=== PATIENT | male | born 1960 | race Caucasian/White ===

== ENCOUNTER 2025-06-01 09:12 | Inpatient (IN) | payer MEDICARE, BC, SELFPAY ==
[2025-06-01] VITALS (15 sets, daily range): BP systolic 104–137; BP diastolic 67–82; PULSE 84–107; RESP 12–38; TEMP 37.1–37.8; O2SAT 63–97
[2025-06-01] MEDS: RINGERS LACTATED 1000 ML 1,000 ML 999 ML IV (09:15)
--- NOTE | 2025-06-01 09:15 | PC.NURSE ---
Pt. pupils pinpoint bilateral.
--- NOTE | 2025-06-01 09:23 | EKG_ITS ---
[facility] Test Date: 2025-06-01 Pat Name: SHERRI VALENZUELA Department: Room: - Gender: Male Measurement Supervisor: : 1960 Requested By: Yenny Champagne Order Number: [id number] Reading MD: Yenny Champagne Measurements Intervals [place] Rate: 105 P: 59 MT: 128 QRS: 8 QRSD: 122 T: -2 QT: 334 QTc: 443 Interpretive Statements SINUS TACHYCARDIA POSSIBLE RIGHT VENTRICULAR CONDUCTION DELAY [RSR (QR) IN V1/V2] NONSPECIFIC ST & T-WAVE ABNORMALITY ABNORMAL RHYTHM ECG Compared to ECG 03/15/2019 16:49:11 Sinus rhythm no longer present Possible ischemia no longer present T-wave abnormality still present /store/S0/[id number]/ecg/[id number].pdf
--- NOTE | 2025-06-01 09:28 | XR_ITS ---
Examination: AP chest single view. Technique: AP portable semiupright chest single view Date and time: June 01, 2025, 1005 hrs., Comparison March 15, 2019. Indications: Altered mental status today. Findings: Moderate enlargement cardiac contour. No aspiration pneumonia. Moderate elevation right hemidiaphragm. Prominent osteopenia. Impression: Negative for aspiration pneumonia.
--- NOTE | 2025-06-01 09:32 | XR_ITS ---
Examination: CT brain head without contrast. 2-D sagittal coronal reconstructions Date and time of exam:June 01, 2025, 1001 hrs. Indications: Altered mental status beginning this morning. CTDI: vol (mGy):58.7. DLP: (mGycm):1285. Technique: Multiple CT axial sections of the brain have been obtained, 5 mm slice thickness. Contrast has not been administered. 2-D sagittal, coronal reconstructions have been obtained Low dose protocols were performed. One or more of the following dose reduction techniques were used; automated exposure control, adjustment of the mA and/or KV according to patient size, use of iterative reconstruction technique. Findings: No significant ventricular enlargement. Intra-axial or extra-axial hemorrhage density is not seen. No mass effect or midline shift Basal cisterns are not remarkable. Fourth ventricle is midline. Cranial vault intact. Impression: Negative for acute hemorrhage, mass effect or midline shift
--- NOTE | 2025-06-01 09:55 | PC.NURSE ---
Pt. is bedside.
--- NOTE | 2025-06-01 10:00 | PC.NURSE ---
Pt. Morphine pump is implanted to the right lower abdomen, states that they can't turn on or off the Morphine pump. states that it drips to pt.'s back. states that pt. has a bolus pump at home and can give himself a bolus if needed. states that she does not know the dose of the Morphine, states it is controlled by pt.'s pain Doctor.
--- NOTE | 2025-06-01 10:02 | EDNOTE_ITS ---
<Statement entered by Yenny Camarillo MD - 06/01/25 15:14> I, Yenny Camarillo MD, have reviewed the history, exam, and assessment of the patient. I have evaluated the patient independently and agree with the plan of care documented by [ ]. All diagnostic studies were reviewed and discussed. I confirm the diagnosis as documented by the Resident. I was present during the Medical Decision Making for this patient. The patient's plan of care was created between myself and the Resident and consistent with our discussion of the patient's case. Altered Mental Status RME/HPI General Chief Complaint: Altered Mental Status Stated Complaint: ALTERED Time Seen by Provider: 06/01/25 09:56 Source: EMS Arrival date/time: 06/01/25 09:12 Mode of arrival: EMS RME / HPI RME / HPI narrative: Mr. Lizarraga is a 65-year-old male with a history of chronic pain with subcutaneous infusion pump, depression/anxiety, GERD, migraines, on testosterone replacement therapy and hyperlipidemia who presented to [facility] emergency department on June 01, 2025 with a chief complaint of altered mental status. Patient on presentation is altered most of the history obtained from EMS, per EMS patient's reported that he was working on his car in the yard yesterday and he told her that he overdid it, was resting in his bed ate dinner went to sleep and she was unable to wake him in the morning. EMS reported that his GCS was 10 on their evaluation and he was responsive to sternal rub. Patient in ER requiring around 3 L nasal cannula to maintain SpO2 greater than 92, is alert and oriented x 1 engaging in conversation responds to questions is confused. Related Data Home Medications ?Medication ?Instructions ?Recorded ?Confirmed quetiapine 100 mg tablet (Seroquel) 100 mg PO HS 03/1504/19/19 Allergies Allergy/AdvReac Type Severity Reaction Status Date / Time iodine Allergy Severe Hives Verified 04/19/19 08:07 lactose Allergy Severe Diarrhea Verified 04/19/19 08:07 latex Allergy Severe Hives Verified 04/19/19 08:07 Review of Systems Review of Systems ROS Unobtainable: unobtainable due to mental status Past Medical History Past Medical History MUSCULOSKELETAL: Positive Musculoskeletal Disorders and Degenerative Disk Disease (LUMBAR) PSYCHO/SOCIAL: Positive Bipolar Disorder, Depression and Anxiety Surgical History SURGICAL: Positive of Shoulder Sx (LEFT ROTATOR CUFF) and of Back Surgery (CAGE AT LUMBAR SPINE) OTHER SURGICAL HX: STERNUM REPAIR AT 9 YEARS OLD IMPLANTED PAIN PUMP RT LOWER ABD (MORPHINE) Social History SMOKING STATUS: Never smoker Travel History EBOLA RISK: No ED Exam Narrative Physical exam: Physical Exam General: Awake, conversational and confused, diaphoretic HEENT: Normocephalic, atraumatic, mucous membranes dry. Pinpoint pupils Heart: Regular rate and rhythm, no murmur, hypotensive. Sternal repair scar noted. Lungs: Clear to auscultation with no wheezing or crackles. Abdomen: Soft, nondistended, nontender, positive bowel sounds. ?No guarding or rebound tenderness. Subcutaneous infusion pump noted Neurologic: Alert and oriented x1, no gross neurological deficit, and patient able to move all 4 extremities. Extremities: No edema. Skin: Cool to touch. No rash or ecchymoses. Course Course Course Narrative: Initially suspicion of opiate overdose, saturating well on 3 L nasal cannula, SpO2 greater than 92, no Narcan given. Given 1 L LR bolus due to soft blood pressure EKG shows sinus tachycardia some Q waves noted, no ST-T changes Ordered sepsis/AMS workup ABG: pH 7.23, pCO2 61, pO2 57 Carboxyhemoglobin 3.1% CBC: WBC 26,000, hemoglobin and platelet count stable, elevated neutrophils 22.6 noted CMP: Potassium 6.7, creatinine 3.7, GFR 17, lactate 4.2, AST 60 ALT 36, total CK 272, Pro-Dario 0.38 Troponin 1.973, BNP 219 Urinalysis shows protein 1+, ketones 1+, no bacteria leukocyte esterase negative Urine tox screen positive for opiates and methamphetamine Chest x-ray negative for aspiration pneumonia CT scan of head negative for any acute hemorrhage or midline shift Patient given additional 1 L NS bolus, started on BiPAP as pCO2 was high, given hyperkalemia treatment Was given Kayexalate 30 p.o. x 1, albuterol 10 mg inhalational treatment, 10 units of insulin along with 100 of D50 Consulted nephrology Dr. Scott recommended IV maintenance fluids and Bertrand catheter insertion Consulted cork mixer Dr. Carter for elevated troponin, recommended trending troponin Patient given loading dose aspirin, heparin drip deferred for now consulted cardiology Discussed with hospitalist team patient will be admitted to telemetry for further workup Quality Measures none Orders Category Date Time Status Admit to Inpatient Status Routine Admission 06/01/25 12:12 Active Patient Condition Routine Admission 06/01/25 12:12 Ordered Aspiration precautions ONCE Care 06/01/25 09:34 Active Bedside Blood Glucose NOW Care 06/01/25 09:28 Active Bedside Blood Glucose Q2HX3 Care 06/01/25 10:57 Active COVID-19 Screening Questionnaire NOW Care 06/01/25 11:40 Active Stopperer Assembler NOW Care 06/01/25 09:28 Active Continuous Pulse Oximetry NOW Care 06/01/25 09:28 Completed Decision to Admit X1 Care 06/01/25 11:39 Active EKG (ED ONLY) *Do not use* NOW Care 06/01/25 09:23 Completed Flu & Pneumonia Vaccine Screen ONCE Care 06/01/25 12:12 Active Bertrand [Urinary Catheter] QS Care 06/01/25 11:07 Active Head of Bed Elevation NOW Care 06/01/25 09:34 Active In and Out Catheter X1 Care 06/01/25 10:51 Completed Insert IV NOW Care 06/01/25 09:28 Active NPO NOW Care 06/01/25 09:28 Active Neuro Check Q1HR Care 06/01/25 09:28 Completed Notify provider NEEDED Care 06/01/25 12:12 Active Nurse Swallow Screen x1 Care 06/01/25 09:28 Active Strict Intake and Output Routine Care 06/01/25 09:30 Ordered Consult to Cardiology Stat Cons 06/01/25 11:03 Ordered Consult to Nephrology Stat Cons 06/01/25 11:02 Ordered CA echo doppler complete Routine Exams 06/01/25 12:[address] head/brain wo con Stat Exams 06/01/25 09:32 Completed EKG (ED Only) Stat Exams 06/01/25 09:23 Draft US renal BI Stat Exams 06/01/25 12:21 Ordered XR abdomen 1V Stat Exams 06/01/25 12:11 Ordered XR chest 1V portable Stat Exams 06/01/25 09:28 Completed A1C [Glycohemoglobin w (eAG)] AM DRAW Lab 06/02/25 05:00 Ordered ABG [Arterial Blood Gas] Stat Lab 06/01/25 12:08 Ordered Alcohol, Blood Medical Stat Lab 06/01/25 09:46 Completed Ammonia Stat Lab 06/01/25 09:46 Completed Arterial Blood Gas Stat Lab 06/01/25 10:08 Completed B-Type Natriuretic Peptide Stat Lab 06/01/25 09:46 Completed Blood Culture (Lab) Stat Lab 06/01/25 11:00 Received CBC AM DRAW Lab 06/02/25 05:00 Ordered CBC AM DRAW Lab 06/03/25 05:00 Ordered CBC AM DRAW Lab 06/04/25 05:00 Ordered CBC Stat Lab 06/01/25 11:05 Completed CK [Creatine Kinase] AM DRAW Lab 06/02/25 05:00 Ordered Carboxyhemoglobin Stat Lab 06/01/25 09:46 Completed Comprehensive Metabolic Panel AM DRAW Lab 06/02/25 05:00 Ordered Comprehensive Metabolic Panel AM DRAW Lab 06/03/25 05:00 Ordered Comprehensive Metabolic Panel AM DRAW Lab 06/04/25 05:00 Ordered Comprehensive Metabolic Panel Stat Lab 06/01/25 09:46 Completed Creatine Kinase Stat Lab 06/01/25 09:46 Completed Creatinine,Random Urine Stat Lab 06/01/25 12:22 Ordered Drug Screen,Urine Stat Lab 06/01/25 10:55 Completed Electrolytes, Urine Random Stat Lab 06/01/25 12:22 Ordered Lactate (Lactic Acid) Stat Lab 06/01/25 09:46 Results Lipid Panel AM DRAW Lab 06/02/25 05:00 Ordered Magnesium AM DRAW Lab 06/02/25 05:00 Ordered Magnesium Stat Lab 06/01/25 09:46 Completed Partial Thromboplastin Time Stat Lab 06/01/25 09:46 Completed Phosphorous AM DRAW Lab 06/02/25 05:00 Ordered Procalcitonin Stat Lab 06/01/25 09:46 Completed Protein Total, Random Urine Stat Lab 06/01/25 12:22 Ordered Prothrombin Time with INR Stat Lab 06/01/25 09:46 Completed Renal Function Panel Routine Lab 06/01/25 14:00 Ordered Thyroid Stimulating Hormone AM DRAW Lab 06/02/25 05:00 Ordered Troponin I Q6H Lab 06/01/25 14:00 Ordered Troponin I Q6H Lab 06/01/25 20:00 Ordered Troponin I Q6H Lab 06/02/25 02:00 Ordered Troponin I Stat Lab 06/01/25 09:46 Completed Urinalysis, C/S if Indicated Stat Lab 06/01/25 10:55 Completed Urine Culture Stat Lab 06/01/25 09:30 Ordered VBG [Venous Blood Gas] Stat Lab 06/01/25 09:46 Completed ALBUTEROL RT 0.5ml [Proventil Rt 0.5ml] Med 06/01/25 10:59 Discontinued 10 mg INH X1 ONE Acetaminophen Tab [Tylenol Tab] Med 06/01/25 12:12 Active 650 mg PO Q6H PRN Albuterol/Ipratr Rt Caridad [Duoneb Rt Caridad] Med 06/01/25 12:12 Active 3 ml INH Q6HR PRN Aspirin Med 06/01/25 11:03 Discontinued 325 mg PO X1 ONE Azithromycin Inj [Zithromax Inj] 500 mg Med 06/02/25 09:00 Pending Sodium Chloride 0.9% 250 ml [Ns] 250 ml IV QDAY Azithromycin Inj [Zithromax Inj] 500 mg Med 06/01/25 12:30 Active Sodium Chloride 0.9% 250 ml [Ns] 250 ml IV X1 Calcium Chloride 10% Abboject Med 06/01/25 11:33 Discontinued 10 ml IV X1 ONE Calcium Gluconate 10% Inj Med 06/01/25 11:09 Discontinued 1 gm IV X1 ONE Cefepime Inj [Maxipime Inj] 2 gm Med 06/01/25 11:30 Discontinued SODIUM CHLORIDE 0.9% (Popper) [Ns 0.9% (P)] 50 ml IV X1 Dextrose 50% Syr [D50w Syringe Abboject] Med 06/01/25 10:57 Discontinued 100 ml IV X1 ONE Dextrose 50% Syr [D50w Syringe Abboject] Med 06/01/25 10:57 Active 25 ml IV Q15MIN PRN Dextrose 50% Syr [D50w Syringe Abboject] Med 06/01/25 10:57 Active 50 ml IV Q15MIN PRN Doxycycline Inj [Vibramycin Inj] 100 mg Med 06/01/25 11:30 Discontinued Sodium Chloride 0.9% (Pop) [NS 0.9% mini bag] 100 ml IV X1 Glucagon Inj Med 06/01/25 10:57 Active 1 mg IM Q15MIN PRN Heparin Inj Med 06/01/25 21:00 Active 5,000 unit SC Q12HR Insulin Regular Med 06/01/25 10:57 Discontinued 10 unit IV X1 ONE Ondansetron Inj [Zofran Inj] Med 06/01/25 09:28 Active 4 mg IVP Q4HR PRN Pantoprazole Inj [Protonix Inj] Med 06/02/25 09:00 Active 40 mg IVP QDAY Ringers Lactated 1000 ml [Lactated Ringers] 1,000 ml Med 06/01/25 10:00 Discontinued IV 999 mls/hr Senna [Senokot] Med 06/02/25 09:00 Active 1 tab PO QDAY Sod Polystyrene Sulfon Susp [Kayexalate Susp] Med 06/01/25 10:57 Discontinued 30 gm PO X1 ONE Sodium Chloride 0.9% 1000 ml [Ns] 1,000 ml Med 06/01/25 12:20 Active IV 100 mls/hr Sodium Chloride 0.9% 1000 ml [Ns] 1,000 ml Med 06/01/25 11:27 Discontinued IV 75 mls/hr Sodium Chloride 0.9% 1000 ml [Ns] 1,000 ml Med 06/01/25 10:38 Discontinued IV 999 mls/hr cefTRIAXone/D5w 1gm IV premix [Rocephin/D5w 1gm IV Med 06/01/25 12:17 Active premix] 1 gm in 50 ml IV QDAY Code Status Routine Oth 06/01/25 12:12 Ordered BiPAP / CPAP HS RT 06/01/25 12:10 Active BiPAP / CPAP NOW RT 06/01/25 10:37 Active Oxygen Delivery PRN RT 06/01/25 09:28 Active Vital Signs Vital signs: Vital Signs Temperature 98.8 F 06/01/25 09:15 Pulse Rate 107 H 06/01/25 09:15 Respiratory Rate 17 06/01/25 09:15 Blood Pressure 104/67 06/01/25 09:15 Pulse Oximetry (%) 88 L 06/01/25 09:15 Oxygen Delivery Method Room Air 06/01/25 09:15 Altered Mental Status MDM Narrative MDM Narrative:: 65-year-old male presented to ED with altered mental status #DIXON #NSTEMI type I versus type II #Acute hypoxic and hypercapnic respiratory failure #Moderate hyperkalemia, potassium 6.7 #Suspicion of sepsis, lactic acidosis, leukocytosis #Chronic pain status post subcutaneous pump Patient presented with altered mental status, broad workup initiated Noted to have elevated potassium 6.7, creatinine elevated at 3.7, likely has prerenal DIXON. Consulted nephrology was given 2 L fluid bolus and started on maintenance fluid. Bertrand catheter placed. Patient given hyperkalemia treatment with albuterol 10 mg, Kayexalate 30 mg p.o. and 10 units of insulin along with 100 of D50 Suspicion of sepsis, source unknown had elevated white count was given cefepime and doxycycline x 1 Patient noted to have hypercapnia on ABG pCO2 61 does have subcutaneous pump follows Dr. Cabral in [place] for chronic pain, started on BiPAP Patient's troponin elevated at 1.973, given loading dose aspirin consulted cardiology who recommended no heparin drip for now Patient discussed with hospitalist team and will be admitted for further workup. Case discussed with Attending Physician Dr. Marquise Little MD Internal Medicine PGY-2 Disclaimer: This note was dictated by speech recognition. Minor errors in technical publications manager may be present due to voice recognition software. Patient data External records reviewed:: [facility] previous records and EMS form Clinical information provided by:: patient, EMS, family and spouse Social determinants that could affect healthcare access:: mental health Patient has the following chronic illnesses:: As above How is presenting disease/condition affected by chronic disease/condition?: ex acerbated by Evaluation data The following diagnostics were reviewed and interpreted by me:: lab results, radiology exam(s) and EKG tracing(s) Lab and/or radiology exams considered but not ordered:: None Interpretation Summary: ABG: pH 7.23, pCO2 61, pO2 57 Carboxyhemoglobin 3.1% CBC: WBC 26,000, hemoglobin and platelet count stable, elevated neutrophils 22.6 noted CMP: Potassium 6.7, creatinine 3.7, GFR 17, lactate 4.2, AST 60 ALT 36, total CK 272, Pro-Dario 0.38 Troponin 1.973, BNP 219 Urinalysis shows protein 1+, ketones 1+, no bacteria leukocyte esterase negative Urine tox screen positive for opiates and methamphetamine Chest x-ray negative for aspiration pneumonia CT scan of head negative for any acute hemorrhage or midline shift EKG shows sinus tachycardia some Q waves noted, no ST-T changes Medications / Prescriptions Medications or Prescriptions considered but not ordered:: None Medication administrations:: Medication Administration History Acetaminophen (Acetaminophen 325 Mg Tablet) 650 mg PO Q6H PRN PRN Reason: Fever >101.4 Stop: 07/01/25 12:11 Albuterol/Ipratropium (Albuterol/Ipratropium (Duoneb) Rt Caridad 3 Ml Nebu) 3 ml INH Q6HR PRN PRN Reason: SHORTNESS OF BREATH OR WHEEZE Stop: 07/01/25 12:11 Dextrose (Dextrose 50%-Water Inj 50 Ml Syringe) 25 ml IV Q15MIN PRN PRN Reason: BG 50-70 responsive npo pt Stop: 07/01/25 10:56 Dextrose (Dextrose 50%-Water Inj 50 Ml Syringe) 50 ml IV Q15MIN PRN PRN Reason: BG <50 OR BG <70 & pt unresponsive Stop: 07/01/25 10:56 Glucagon (Glucagon Inj 1 Mg Vial) 1 mg IM Q15MIN PRN PRN Reason: BG <70, and no IV access Heparin Sodium (Porcine) (Heparin Sod Inj 5000 Unit/Ml Vial) 5,000 unit SC Q12HR GERMAN Stop: 06/15/25 20:59 Ceftriaxone Sodium/Dextrose (Rocephin/D5w 1gm Iv Premix) 1 gm in 50 mls @ 100 mls/hr IV QDAY GERMAN Stop: 06/08/25 12:16 Azithromycin 500 mg/ Sodium (Chloride) 250 mls @ 250 mls/hr IV QDAY GERMAN Stop: 06/09/25 08:59 Sodium Chloride (Ns) 1,000 mls @ 100 mls/hr IV .Q10H GERMAN Stop: 06/01/25 22:19 Azithromycin 500 mg/ Sodium (Chloride) 250 mls @ 250 mls/hr IV X1 ONE Stop: 06/01/25 13:29 Ondansetron HCl (Ondansetron Inj 2 Mg/Ml Inj 2 Ml) 4 mg IVP Q4HR PRN PRN Reason: NAUSEA OR VOMITING Stop: 07/01/25 09:27 Pantoprazole Sodium (Pantoprazole Inj 40 Mg Vial) 40 mg IVP QDAY GERMAN Stop: 07/02/25 08:59 Sennosides (Senna Tablet) 1 tab PO QDAY GERMAN; Protocol Stop: 07/02/25 08:59 Discontinued Medications Albuterol (Albuterol Rt 2.5 Mg/0.5 Ml Nebu) 10 mg INH X1 ONE Stop: 06/01/25 11:00 Last Admin: 06/01/25 11:05 Dose: 10 mg Documented By: EV Aspirin (Aspirin 325 Mg Tablet) 325 mg PO X1 ONE Stop: 06/01/25 11:04 Last Admin: 06/01/25 11:20 Dose: 325 mg Documented By: ED Calcium Chloride (Calcium Chloride 10% Inj 10 Ml Syrg) 10 ml IV X1 ONE Stop: 06/01/25 11:34 Last Admin: 06/01/25 11:45 Dose: 10 ml Documented By: ED Calcium Gluconate (Calcium Gluconate 10% Inj 1 Gm/10 Ml Vial) 1 gm IV X1 ONE Stop: 06/01/25 11:10 Dextrose (Dextrose 50%-Water Inj 50 Ml Syringe) 100 ml IV X1 ONE Stop: 06/01/25 10:58 Last Admin: 06/01/25 11:24 Dose: 100 ml Documented By: ED Lactated Ringer's (Lactated Ringers) 1,000 mls @ 999 mls/hr IV .Q1H1M ONE Stop: 06/01/25 11:00 Last Infusion: 06/01/25 10:16 Dose: Infused Documented By: Admin: 06/01/25 09:15 Dose: 999 mls/hr Documented By: ED Sodium Chloride (Ns) 1,000 mls @ 999 mls/hr IV .Q1H1M ONE Stop: 06/01/25 11:38 Last Infusion: 06/01/25 11:43 Dose: Infused Documented By: Admin: 06/01/25 10:42 Dose: 999 mls/hr Documented By: ED Sodium Chloride (Ns) 1,000 mls @ 75 mls/hr IV .[id number] GERMAN Stop: 06/02/25 00:46 Last Admin: 06/01/25 11:41 Dose: 75 mls/hr Documented By: ED Cefepime HCl 2 gm/ Sodium (Chloride) 50 mls @ 100 mls/hr IV X1 ONE Stop: 06/01/25 11:59 Last Infusion: 06/01/25 12:11 Dose: Infused Documented By: Admin: 06/01/25 11:41 Dose: 100 mls/hr Documented By: ED Doxycycline Hyclate 100 mg/ (Sodium Chloride) 100 mls @ 100 mls/hr IV X1 ONE Stop: 06/01/25 12:29 Insulin Human Regular (Insulin Hum Regular 1 Unit/0.01 Ml (Per Unit)) 10 unit IV X1 ONE Stop: 06/01/25 10:58 Last Admin: 06/01/25 11:21 Dose: 10 unit Documented By: ED Co-signed By: CARMELLA Sodium Polystyrene Sulfonate (Sod Polystyrene Sulfon Susp 15 Gm/60 Ml Btl) 30 gm PO X1 ONE Stop: 06/01/25 10:58 Last Admin: 06/01/25 11:18 Dose: 30 gm Documented By: ED As above Consultations Consultation(s) initiated? (list below): Yes Consultation #1 (Physician, Specialty, Details): Dr. Scott, nephrology, DIXON Consultation #2 (Physician, Specialty, Details): Dr. Carter, cardiology, NSTEMI Diagnosis Differential diagnosis altered mental status: altered mental status and other (Acute metabolic encephalopathy) Most likely diagnosis given after review of the tests above:: Acute metabolic encephalopathy Admission Indicated Admission indicated?: indicated Admission Request Was there a request for admission?: Yes Admission Attestation Admission request attestation: Discussed case with [] from Hospitalist service regarding admission. Discussed patients ED course, exam findings, labs, and radiology results. The Hospitalist [agrees,declines] to accept the patient for admission. Disposition Plan Disposition Plan: Discharge Discharge Attestation Discharge Attestation: The patient and all family members were given an opportunity to ask questions and understood the discharge instructions. Discharge instructions specifically effects, indications for sooner follow up or return to the emergency department, and the expected course of current diagnosis. Patient condition: Stable Discharge Plan Plan Patient Disposition: Admit Acute Care w/in Hospital Prescriptions/Referrals Prescriptions/Med Rec: No Action quetiapine [Seroquel] 100 mg Tablet 100 mg PO HS Referrals: Shaheed Scanlon NP [Primary Care Provider] - In 1 week Problem List Clinical Impression: Acute metabolic encephalopathy, Acute hyperkalemia Patient/Caregiver Discharge Instructions Print Language: Luxembourgish Stand Alone Forms: [facility] Award Info., Patient Portal Info Letter
--- NOTE | 2025-06-01 10:04 | PC.NURSE ---
RT is bedside getting ABG.
--- NOTE | 2025-06-01 10:10 | PC.NURSE ---
Pt. states he is by the [place] [facility], pt. able to state the year is 2024, unable to state where he is. is bedside.
[2025-06-01 10:20] LABS: Base Excess, Venous -5 (-3-3); O2 Saturation, Venous 77 % (96-97); PCO2, Venous 50 mmHg (36-56); PO2, Venous 45 mmHg (15-58); pH, Venous 7.26 (7.33-7.66)
[2025-06-01 10:21] LABS: Base Excess -3 (-3-3); HCO3 26 mEq/L (20-26); Inspired Oxygen, FIO2 21 %; O2 Saturation 87 % (91-98); PCO2 61 mmHg (32.0-48.0); pH, Arterial 7.23 (7.35-7.45)
[2025-06-01 10:22] LABS: Lactate (Lactic Acid) 4.2 mMol/L (0.4-2.0)
[2025-06-01 10:24] LABS: Allen Test Performed/OK; Puncture Site Right Brachial
[2025-06-01 10:25] LABS: PO2 57 mmHg (83-108)
[2025-06-01 10:27] LABS: Carboxyhemoglobin 3.1 % (0.5-1.5)
[2025-06-01 10:39] LABS: Ammonia 32 uMol/L (11-32); B-Type Natriuretic Peptide 219 pg/mL (0-100)
[2025-06-01] MEDS: SODIUM CHLORIDE 0.9% 1000 ML 1,000 ML 999 ML IV (10:42)
[2025-06-01 10:48] LABS: Alanine Aminotransferase 36 U/L (10-49); Albumin, Serum 4.8 gm/dL (3.4-4.8); Albumin/Globulin Ratio 2.0 (1.2-2.2); Alcohol, Blood Medical < 3.0 mg/dL (0-10.0); Alkaline Phosphatase 112 U/L (46-116); Anion Gap 12 (7-16); Aspartate Amino Transferase 60 U/L (0-34); BUN/Creatinine Ratio 5 Ratio (12-20); Bilirubin,Total 0.8 mg/dL (0.3-1.2); Blood Urea Nitrogen 18 mg/dL (9-23); Calcium 9.0 mg/dL (8.3-10.6); Calcium (Corrected) 9.0 mg/dL (8.5-10.1); Carbon Dioxide 26.8 mMol/L (20.0-31.0); Chloride 103 mMol/L (98-107); Creatine Kinase 272 U/L (34-171); Creatinine (Component) 3.7 mg/dL (0.6-1.3); Globulin 2.4 gm/dL (2.3-3.5); Glucose 121 mg/dL (74-106); Magnesium 2.6 mg/dL (1.6-2.6); Osmolality,Calculated 286 (275-295); Procalcitonin 0.38 ng/ml (0.0-0.49); Sodium 142 mMol/L (136-145); Total Protein 7.2 gm/dL (5.7-8.2); eGFR 17 See Note
[2025-06-01 10:54] LABS: Potassium 6.7 mMol/L (3.4-5.1)
[2025-06-01 10:55] LABS: Troponin I 1.973 ng/mL (0.0-0.045)
--- NOTE | 2025-06-01 10:56 | PC.NURSE ---
RT is bedside putting pt. on BiPap.
[2025-06-01] MEDS: ALBUTEROL RT 2.5 MG/0.5 ML NEBU 10 MG INH (11:05)
[2025-06-01] MEDS: SOD POLYSTYRENE SULFON SUSP 15 GM/60 ML BTL 30 GM PO (11:18)
[2025-06-01] MEDS: INSULIN HUM REGULAR 1 UNIT/0.01 ML (PER UNIT) 10 UNIT IV (11:21)
[2025-06-01 11:23] LABS: Basophils # (Auto) 0.1 Thou/mm3 (0.0-0.2); Basophils % (Auto) 0 % (0-2.5); Eosinophils # (Auto) 0.0 Thou/mm3 (0.0-0.5); Eosinophils % (Auto) 0 % (0-10); Hematocrit 47.0 % (41.0-53.0); Hemoglobin 14.7 g/dL (13.5-16.0); Immature Granulocytes Auto 0.16 Thou/mm3 (0.00-0.00); Lymphocytes # (Auto) 0.9 Thou/mm3 (1.0-4.8); Lymphocytes % (Auto) 4 % (10-50); Mean Corpuscular HGB Conc 31.3 g/dl (31.0-37.0); Mean Corpuscular Hemoglobin 27.9 pg (25.0-35.0); Mean Corpuscular Volume 89 fL (80-100); Monocytes # (Auto) 2.3 Thou/mm3 (0.0-0.8); Monocytes % (Auto) 9 % (0-12); Neutrophils # (Auto) 22.6 Thou/mm3 (1.8-7.7); Neutrophils % (Auto) 87 % (37-80); Nucleated Red Blood Cell # 0.00 Thou/mm3 (0.00-0.00); Nucleated Red Blood Cell % 0 /100 WBC (0); Platelet Count 374 Thou/mm3 (140-440); RDW Standard Deviation 45.5 fL (35.1-43.9); Red Blood Count 5.26 Miln/mm3 (4.50-5.90); White Blood Count 26.0 Thou/mm3 (3.8-10.6)
[2025-06-01] MEDS: DEXTROSE 50%-WATER INJ 50 ML SYRINGE 100 ML IV (11:24)
[2025-06-01 11:36] LABS: INR 1.1 (0.9-1.3); Partial Thromboplastin Time 24.0 Seconds (22.0-36.0); Prothrombin Time 11.7 Seconds (9.0-12.2)
[2025-06-01 11:36] LABS: Bilirubin,Urine Negative (Negative); Blood,Urine Negative (Negative); Clarity,Urine Clear (Clear/Hazy); Collection Type, Urine Clean Catch; Color,Urine Yellow (Lt Yel-Yel); Culture Indicated,Urine Not Indicated; Glucose, Urine Negative (Negative); Hyaline Casts,Urine < 1 /hpf (0-1); Ketones,Urine 1+ (Negative); Leukocyte Esterase,Urine Negative (Negative); Nitrite,Urine Negative (Negative); PH,Urine 6.0 (5.0-7.0); Protein,Urine 1+ (Neg - Trace); RBC,Urine 3 /hpf (0-3); Specific Gravity,Urine 1.030 (1.001-1.035); Squamous Epithelial Cell,Urine 0 /hpf (0-5); Urobilinogen,Urine Negative mg/dL (0.0-1.0); WBC,Urine 2 /hpf (0-5)
[2025-06-01] MEDS: CEFEPIME INJ 2 GM in SODIUM CHLORIDE 0.9% (Popper) 50 ML IV (11:41)
[2025-06-01] MEDS: SODIUM CHLORIDE 0.9% 1000 ML 1,000 ML 75 ML IV (11:41)
[2025-06-01] MEDS: CALCIUM CHLORIDE 10% INJ 10 ML SYRG IV (11:45)
[2025-06-01 11:50] LABS: Amphetamine/Methamp Scrn,U Positive (Negative); Barbiturate Screen,Urine Negative (Negative); Benzodiazepines Screen,Urine Negative (Negative); Benzoylecgonine Screen, Ur Negative (Negative); Fentanyl Screen,Urine Negative (Negative); Opiate Screen,Urine Positive (Negative); THC Screen,Urine Negative (Negative)
--- NOTE | 2025-06-01 11:57 | PC.NURSE ---
Dr. Casas is bedside talking with pt., pt.'s , pt.'s son and pt.'s grandson.
--- NOTE | 2025-06-01 11:58 | PC.NURSE ---
Pt. tolerating BiPap well.
--- NOTE | 2025-06-01 12:11 | XR_ITS ---
Examination: Abdomen AP single view Technique: AP portable supine abdomen, single view Exam date and time: June 01, 2025, 1244 hrs. Indications: Abdominal distention today. Findings: Mildly fluid distended small bowel loops Contrast in the colon No free air Impression: Small bowel ileus pattern
--- NOTE | 2025-06-01 12:16 | ECHO_ITS ---
Transthoracic Echo Report Ht (in): 78 Wt (lb): 252 Exam Location: Echo Lab Status: Inpatient Manager Electronic: Humera Brandt Indications: Procedure Performed: BP: 277 / 72 HR: 106 Technical Quality: Very technically difficult study MEASUREMENTS (Male / Female) Normal Values 2D ECHO LV Diastolic Diameter PLAX 6.6 cm 4.2 - 5.9 / 3.9 - 5.3 cm LV Systolic Diameter PLAX 4.2 cm IVS Diastolic Thickness 1.1 cm 0.6 - 1.0 / 0.6 - 0.9 cm LVPW Diastolic Thickness 1.2 cm 0.6 - 1.0 / 0.6 - 0.9 cm LV Relative Wall Thickness 0.3 LVOT Diameter 2.0 cm LV Ejection Fraction MOD 4C 60.7 % LV Cardiac Index MOD 4C 5503.1 cm?/min?m? LV Ejection Fraction 4C AL 61.7 % LV Cardiac Index 4C AL 5786.5 cm?/min?m? DOPPLER AV Peak Velocity 126.0 cm/s AV Peak Gradient 6.4 mmHg AV Mean Gradient 4.0 mmHg AV Velocity Time Integral 17.1 cm LVOT Peak Velocity 136.0 cm/s LVOT Peak Gradient 7.4 mmHg LVOT Velocity Time Integral 21.9 cm LVOT Cardiac Index 2888.0 cm?/min?m? AV Area Cont Eq vti 4.0 cm? AV Area Cont Eq pk 3.4 cm? MV Area PHT 4.4 cm? MR Peak Velocity 211.0 cm/s MR Peak Gradient 17.8 mmHg Mitral E Point Velocity 62.1 cm/s Mitral A Point Velocity 90.2 cm/s Mitral E to A Ratio 0.7 LV E' Lateral Velocity 7.4 cm/s Mitral E to LV E' Lateral Ratio 8.4 LV E' Septal Velocity 7.5 cm/s Mitral E to LV E' Septal Ratio 8.3 FINDINGS Left Ventricle The study quality is suboptimal however the left ventricle appears to be showing normal left and no wall motion abnormalities except there is some suggestion of mild apical septal hypokinesis ejection fraction well-preserved 55 to 60%. Right Ventricle The right ventricular size is moderately increased with normal systolic function. Left Atrium The left atrium is normal by two-dimensional, color flow and Doppler imaging with no structural abnormalities, no thrombus formation present. Right Atrium The right atrium is normal by two-dimensional imaging, color flow and Doppler imaging with no structural abnormalities, no thrombus formation present. Atrial Septum The interatrial septum appears normal with no evidence of a shunt. Aorta The aorta is normal by two-dimensional, color flow and Doppler interrogation. Mitral Valve The mitral valve is normal by two-dimensional, color flow and Doppler interrogation. Mild mitral regurgitation. Aortic Valve The aortic valve is trileaflet and normal by two-dimensional, color flow and Doppler interrogation. There is no significant aortic valve regurgitation. Tricuspid Valve The tricuspid valve is normal by two-dimensional, color flow and Doppler interrogation. There is trace tricuspid valve regurgitation. Pulmonic Valve The pulmonic valve is not well visualized. There is no significant pulmonic valve regurgitation. Vessels Inferior vena cava not well visualized. Pericardium The pericardium is normal by two-dimensional imaging. There is no significant pericardial effusion. CONCLUSIONS Indication: Elevated troponin Suboptimal study Normal left ventricle function ejection fraction 50 to 55% with mild septal apical hypokinesis. Grade 1 diastolic dysfunction of the left ventricle The RV size is moderately increased with normal systolic function. mild mitral regurgitation, mild tricuspid regurgitation with normal PA pressure. Milo#[id number] Maura Silver (Electronically Signed) Final Date: 03 June 2025 17:20
--- NOTE | 2025-06-01 12:21 | XR_ITS ---
Examination: Retroperitoneal ultrasound, complete Technique: Multiple high resolution grayscale images of the retroperitoneum obtained, including kidneys and bladder. Exam date and time:June 01, 2025, 1222 hrs. Indications: Acute renal insufficiency on laboratory examination today. Findings: Right kidney 10.7 cm cortex 1.6 cm Left kidney 10.1 cm cortex 2.0 cm Multiple left renal calculi, the largest 7 mm Moderate renal scar formation. No bladder mass or bladder calculi, bladder prevoid volume 392 cc Negative for prostatomegaly Impression: Multiple nonobstructing left renal calculi. Moderate bilateral renal parenchymal scar formation.
--- NOTE | 2025-06-01 12:35 | PC.NURSE ---
US is bedside doing pt. US.
[2025-06-01] MEDS: DOXYCYCLINE INJ 100 MG in SODIUM CHLORIDE 0.9% (POP) 100 ML IV (12:51)
[2025-06-01] MEDS: cefTRIAXone/D5w 1gm IV premix 1 GM/50 ML BAG IV (12:55)
--- NOTE | 2025-06-01 12:58 | ESHP_ITS ---
Documentation for date of: 06/01/25 [facility] History of Present Illness Chief complaint: Altered mental status History of present illness: Mr. Lizarraga is a 65-year-old male with a past medical history of chronic back pain with subcutaneous infusion pump, depression/anxiety, GERD, migraines, sleep apnea, HLD, and on testosterone replacement therapy who presented to [facility] ED on 06/01 for altered mental status. The patient was admitted for management of DIXON and sepsis. According to the patient's , the patient's symptoms began yesterday, where the patient felt more sweaty than usual. The patient was working on his truck in the sun for about an hour, but according to the patient's , he hydrates quite well. Other than the increased sweating, the patient did not have any additional symptoms before going to bed that night. On 06/01 in the morning, the patient was found sweating in bed and could not wake up on his own. The patient's was able to wake him up, but did note that he appeared to be diaphoretic, cool, and clammy. Patient seemed lethargic and could not answer the 's questions. Additionally, the patient's eyes were pinpoint pupils. EMS was called and architecture faculty member that arrived on the scene noted GCS of 10. Patient was then brought to the ED by EMS, and EMS staff did note blood pressure of 80/50, heart rate 102, respiratory rate 20, and pulse ox 91% O2 saturation. After receiving 2 L of fluid bolus and being started on maintenance fluid, patient was noted to have significant improvement of altered mental status. During time of evaluation on admission, patient was noted to be on BiPAP as he was retaining CO2 per ABG. The patient was aware of self and place, but was unaware of the date and the situation. Abdomen was noted to be distended, and patient states that he has not pooped in about 3 to 4 days, which is unusual for him as he usually goes every day. Most of the history was taken by at bedside as the patient had difficulty speaking with BiPAP on. Patient denies any chest pain, cough, wheezing, and abdominal pain. ED course: Initial vitals were significant for blood pressure 80/50, heart rate 107, respiratory rate 24, and O2 saturation 88% on room air. Initial labs were significant for WBC 26.0, potassium 6.7, creatinine 3.7, lactic acid 4.2, troponin 1.973, and BNP 219. ABG showed pH of 7.23, pCO2 61, and pO2 57. VBG showed pH 7.26 and PaO2 77. Labs within normal limits noted to be ammonia and procalcitonin. Urinalysis negative. U tox positive for opiates and methamphetamine. EKG negative for ST elevations. CXR negative for pneumonia, CT head negative for acute processes. Gave patient 1 L LR and 1 L NS. Patient was started on BiPAP given high pCO2. Patient given Kayexalate 30 mg p.o., albuterol 10 mg inhaled, and 10 units of insulin with 500 of D50 for management of hyperkalemia. Consulted nephrology, who recommended continuing IV maintenance fluid and Bertrand catheter insertion. Consulted customer solutions supervisor, who recommended trending troponins, giving loading dose of aspirin, and deferring heparin drip for now. Past Surgical History: Sternum repair ( for ribs growing inwards , 10 to 15 years old), left rotator cuff repair, back surgery x 2, implantation of pain pump in right lower abdomen (morphine). Current Medication(s): Patient's family is unsure, pending med rec. Allergies (w/ Reactions): Iodine and latex (hives) Family History: Noncontributory Alcohol Intake: Patient denies Tobacco/Vape Use: Patient denies Other Drug Use: Patient denies Review of Systems Review of Systems Systems Reviewed: All systems reviewed, normal except as documented Exam Vital Signs Temp Pulse Resp BP Pulse Ox O2 Del Method FiO2 98.8 F 93 20 130/82 93 L BiPAP 60 06/01/25 09:15 06/01/25 12:10 06/01/25 12:10 06/01/25 12:10 06/01/25 12:10 06/01/25 12:10 06/01/25 11:11 Narrative Exam Physical Exam: General: Alert, no acute distress. Voice soft. Skin: Warm, dry, intact. Head: Normocephalic, atraumatic. Eye: Normal conjunctiva, pinpoint pupils, slowly reactive to light. Throat: Oral mucosa moist. No obvious lesions in oropharynx. Cardiovascular: Regular rate and rhythm, no murmur, +S1/S2. Respiratory: Lungs are clear to auscultation, respirations unlabored, no crackles, no wheezing. Gastrointestinal: Soft, nontender, distended. No guarding or rebound tenderness. Extremities: No edema, no cyanosis, no clubbing. Neuro: No focal deficits observed. Conversant, moving all extremities. No overt cerebellar signs/incoordination. Psychiatric: Cooperative, appropriate affect. Results: Labs 06/01/25 11:05 06/01/25 12:54 Labs: Short CBC 06/01/25 Range/Units 11:05 WBC 26.0 H (3.8-10.6) Thou/mm3 Hgb 14.7 (13.5-16.0) g/dL Hct 47.0 (41.0-53.0) % Plt Count 374 (140-440) Thou/mm3 BMP 06/01/25 09:46 Sodium 142 Potassium 6.7 H* Chloride 103 Carbon Dioxide 26.8 BUN 18 Creatinine 3.7 H Glucose 121 H Calcium 9.0 Cardiac Enzymes 06/01/25 Range/Units 09:46 Total Creatine Kinase 272 H (34-171) U/L Troponin I 1.973 H* (0.0-0.045) ng/mL Liver Function 06/01/25 Range/Units 09:46 Total Bilirubin 0.8 (0.3-1.2) mg/dL AST 60 H (0-34) U/L ALT 36 (10-49) U/L Alkaline Phosphatase 112 (46-116) U/L Albumin 4.8 (3.4-4.8) gm/dL Urine 06/01/25 Range/Units 10:55 Urine Color Yellow (Lt Yel-Yel) Urine Clarity Clear (Clear/Hazy) Urine pH 6.0 (5.0-7.0) Ur Specific Maybee 1.030 (1.001-1.035) Urine Protein 1+ A (Neg - Trace) Urine Glucose (UA) Negative (Negative) ABG Interpretation ABG results: 06/01/25 06/01/25 09:46 10:08 ABG pH 7.23 L ABG pCO2 61 H ABG pO2 57 L* ABG HCO3 26 ABG O2 Saturation 87 L ABG Base Excess -3 VBG pH 7.26 L VBG pCO2 50 VBG pO2 45 VBG Base Excess -5 L Quality Measures Quality Measures VTE prophylaxis Advance care planning discussed with:: patient and significant other Medications Home Medications and Allergies Home Medications ?Medication ?Instructions ?Recorded ?Confirmed ?Type quetiapine 100 mg tablet (Seroquel) 100 mg PO HS 03/1504/19/19 History Allergies Allergy/AdvReac Type Severity Reaction Status Date / Time iodine Allergy Severe Hives Verified 04/19/19 08:07 lactose Allergy Severe Diarrhea Verified 04/19/19 08:07 latex Allergy Severe Hives Verified 04/19/19 08:07 Visit Medications Acetaminophen (Acetaminophen 325 Mg Tablet) 650 mg PO Q6H PRN PRN Reason: Fever >101.4 Stop: 07/01/25 12:11 Albuterol/Ipratropium (Albuterol/Ipratropium (Duoneb) Rt Caridad 3 Ml Nebu) 3 ml INH Q6HR PRN PRN Reason: SHORTNESS OF BREATH OR WHEEZE Stop: 07/01/25 12:11 Dextrose (Dextrose 50%-Water Inj 50 Ml Syringe) 25 ml IV Q15MIN PRN PRN Reason: BG 50-70 responsive npo pt Stop: 07/01/25 10:56 Dextrose (Dextrose 50%-Water Inj 50 Ml Syringe) 50 ml IV Q15MIN PRN PRN Reason: BG <50 OR BG <70 & pt unresponsive Stop: 07/01/25 10:56 Glucagon (Glucagon Inj 1 Mg Vial) 1 mg IM Q15MIN PRN PRN Reason: BG <70, and no IV access Heparin Sodium (Porcine) (Heparin Sod Inj 5000 Unit/Ml Vial) 5,000 unit SC Q12HR [facility] Stop: 06/15/25 20:59 Ceftriaxone Sodium/Dextrose (Rocephin/D5w 1gm Iv Premix) 1 gm in 50 mls @ 100 mls/hr IV QDAY [facility] Stop: 06/08/25 12:16 Last Admin: 06/01/25 12:55 Dose: 100 mls/hr Azithromycin 500 mg/ Sodium (Chloride) 250 mls @ 250 mls/hr IV QDAY [facility] Stop: 06/09/25 08:59 Sodium Chloride (Ns) 1,000 mls @ 100 mls/hr IV .Q10H [facility] Stop: 06/01/25 22:19 Azithromycin 500 mg/ Sodium (Chloride) 250 mls @ 250 mls/hr IV X1 ONE Stop: 06/01/25 13:29 Ondansetron HCl (Ondansetron Inj 2 Mg/Ml Inj 2 Ml) 4 mg IVP Q4HR PRN PRN Reason: NAUSEA OR VOMITING Stop: 07/01/25 09:27 Pantoprazole Sodium (Pantoprazole Inj 40 Mg Vial) 40 mg IVP QDAY [facility] Stop: 07/02/25 08:59 Sennosides (Senna Tablet) 1 tab PO QDAY [facility]; Protocol Stop: 07/02/25 08:59 Discontinued Medications Albuterol (Albuterol Rt 2.5 Mg/0.5 Ml Nebu) 10 mg INH X1 ONE Stop: 06/01/25 11:00 Last Admin: 06/01/25 11:05 Dose: 10 mg Aspirin (Aspirin 325 Mg Tablet) 325 mg PO X1 ONE Stop: 06/01/25 11:04 Last Admin: 06/01/25 11:20 Dose: 325 mg Calcium Chloride (Calcium Chloride 10% Inj 10 Ml Syrg) 10 ml IV X1 ONE Stop: 06/01/25 11:34 Last Admin: 06/01/25 11:45 Dose: 10 ml Calcium Gluconate (Calcium Gluconate 10% Inj 1 Gm/10 Ml Vial) 1 gm IV X1 ONE Stop: 06/01/25 11:10 Dextrose (Dextrose 50%-Water Inj 50 Ml Syringe) 100 ml IV X1 ONE Stop: 06/01/25 10:58 Last Admin: 06/01/25 11:24 Dose: 100 ml Lactated Ringer's (Lactated Ringers) 1,000 mls @ 999 mls/hr IV .Q1H1M ONE Stop: 06/01/25 11:00 Last Infusion: 06/01/25 10:16 Dose: Infused Sodium Chloride (Ns) 1,000 mls @ 999 mls/hr IV .Q1H1M ONE Stop: 06/01/25 11:38 Last Infusion: 06/01/25 11:43 Dose: Infused Sodium Chloride (Ns) 1,000 mls @ 75 mls/hr IV .[id number] [facility] Stop: 06/02/25 00:46 Last Admin: 06/01/25 11:41 Dose: 75 mls/hr Cefepime HCl 2 gm/ Sodium (Chloride) 50 mls @ 100 mls/hr IV X1 ONE Stop: 06/01/25 11:59 Last Infusion: 06/01/25 12:11 Dose: Infused Doxycycline Hyclate 100 mg/ (Sodium Chloride) 100 mls @ 100 mls/hr IV X1 ONE Stop: 06/01/25 12:29 Last Admin: 06/01/25 12:51 Dose: 100 mls/hr Insulin Human Regular (Insulin Hum Regular 1 Unit/0.01 Ml (Per Unit)) 10 unit IV X1 ONE Stop: 06/01/25 10:58 Last Admin: 06/01/25 11:21 Dose: 10 unit Sodium Polystyrene Sulfonate (Sod Polystyrene Sulfon Susp 15 Gm/60 Ml Btl) 30 gm PO X1 ONE Stop: 06/01/25 10:58 Last Admin: 06/01/25 11:18 Dose: 30 gm Assessment & Plan Plan Mr. Lizarraga is a 65-year-old male with a past medical history of chronic back pain with subcutaneous infusion pump, depression/anxiety, GERD, migraines, sleep apnea, HLD, and on testosterone replacement therapy who presented to [facility] ED on 06/01 for altered mental status. The patient was admitted for management of DIXON and sepsis. #DXION, likely prerenal #CKD Patient noted to have been working out in the sun day before admission. On admission, the patient was noted to have creatinine of 3.7, which is increased from his baseline of 1.3. While patient is noted to have decent oral intake per family, his DIXON is most likely secondary to poor oral intake prior to being admitted. In ED, nephrology was consulted, who recommended continuing with IV fluid hydration. Diagnostic: Renal ultrasound ordered 06/01, shows multiple nonobstructing left renal calculi and moderate bilateral renal parenchyma scar formation, supportive of CKD Rx: 1 L LR 06/01 3 L NS 06/01 Plan: Nephrology consulted, appreciate recommendations Avoid nephrotoxic drugs, renally dose medications Ordered urine electrolytes, creatinine, and total protein, pending #Acute hypoxic respiratory failure #Acute hypercapnic respiratory failure #Sepsis 2/2 #Commune acquired pneumonia #Lactic acidosis, resolved #Leukocytosis Patient presented with O2 sat of 88% on room air. In ED, it was noted that the patient had a blood pressure of 80/50, heart rate 107, respiratory rate 24, and WBC 26. Patient remains afebrile throughout ED course and family at bedside does not know any fevers, however patient was noted to be sweating the day before and the morning before coming to the ED. Additionally, patient was noted to have lactic acid of 4.2, which supports a picture of sepsis. Given the decreased O2 saturation, it is likely a community-acquired pneumonia, however CXR in the ED is negative. ABG was performed in ED, which showed elevated pCO2, so patient was started on BiPAP for CO2 retention. SIRS score 3 Diagnostic: Repeat lactic acid 06/01 is 2.0 Plan: Ceftriaxone 1 g daily (06/01 - 06/06) Azithromycin 500 mg daily (06/01 - 06/03) Continue BiPAP, wean off tolerated Repeat ABG ordered, pending DuoNebs 3 mL inhaled every 6 hour as needed #NSTEMI, type I versus type II #Elevated troponins #Methamphetamine use Patient does not have any chest pain and EKG negative for ST elevations, however patient was noted to have troponin of 1.973 in the ED. In ED, case was discussed with cardiology, who did not recommend heparin drip at that time. Patient is noted to have previous cardiac workup by customer solutions supervisor in [place], including angiogram, all of which were negative per the family. Patient received one-time dose of aspirin 325 mg in ED. Diagnostic: Repeat troponin 06/01 12:54 shows troponin 2.891 Urine toxicology positive for opiates and methamphetamine Plan: Continue to trend troponin Cardiology consulted, appreciate recommendations Echocardiogram ordered, pending #Urinary retention Attempted to place Bertrand catheter in patient as patient was noted to have 392 cc of volume in bladder on renal ultrasound. Was not able to successfully place catheter in initially in ED. Bladder scan a few hours later showed 562 cc of urine in bladder. Attempted additional attempts, but was unsuccessful. This may potentially be contributing to the altered mentation that was noted prior to coming to ED. Plan: Suprapubic catheter planned for 06/01, pending Will consult urology on 06/02 when services are available #Hyperkalemia Patient noted to have potassium of 6.7 in ED. Patient given Kayexalate 30 mg p.o., albuterol 10 mg inhaled, and 10 units of insulin with 500 of D50 for management of hyperkalemia in ED Diagnostic: Repeat renal panel 06/01 12:54 shows potassium 4.7 Plan: Continue to monitor, will treat with hyperkalemia protocol if necessary #GERD Patient endorses a history of GERD and takes pantoprazole at home according to family. Plan: Protonix 40 mg twice daily GERD diet #Chronic pain s/p subcutaneous pump Patient is noted to have chronic pain that is managed with a subcutaneous pump that delivers morphine. This is likely for his back pain given 2 previous surgeries. Plan: Will continue to monitor, manage with pain medication as necessary #Depression #Anxiety Patient is noted to have a history of depression/anxiety. Per outside pharmacy data, patient appears to take escitalopram and olanzapine. Plan: Pending med rec Given altered mental status on admission, will hold medications for now #Testosterone supplementation Per patient's family and outside pharmacy data, patient is on testosterone supplementation. It is not entirely clear as to why. Plan: Patient to follow-up outpatient DVT Prophylaxis: Heparin GI Prophylaxis: Protonix Bowel: Senna Diet: GERD & cardiac Bertrand: N/A Lines: Peripheral IV Antibiotics: Ceftriaxone (06/01-06/06) & Azithromycin (06/01-06/03) Code Status: FULL Reason for Hospitalization: DIXON and sepsis Other Barriers to Discharge: BiPAP, troponins Patient plan of care was discussed with attending physician Dr. Bernard Alonzo, PGY1 Attending Provider Attestation/Addendum I attest that I was physically present for the evaluation, physical examination, lab and imaging review of the patient with the residents. I discussed the case with the residents and agree with the findings and plans of care as documented above.After examination of the patient and review of the clinical data I feel that this patient needs admission to the hospital for further treatment/evaluation. Patient is a 65 years old male with past medical history of sleep apnea, hyperlipidemia, low testosterone on testosterone replacement therapy, chronic back pain on morphine pump, GERD, depression and anxiety who presented to the ED with complaint of altered mental status. Patient has been working all day in the sun the day before admission, he started becoming increasingly sweaty, lethargic and confused. In the ED, he was found to be hypotensive with blood pressure of 80/50, heart rate 100 to, elevated respiratory rate and hypoxic with saturation going down to 88. On labs, he was found to have WBC of 26, potassium 6.7, creatinine 3.7, lactic acid 4.2, troponin 1.973, BNP 219. ABG was obtained, which pCO2 61, HCO3 from 10 panel was 26.8. Urinalysis did not show pyuria, at the time of exam, patient was more awake, able to answer questions appropriately. Head CT was obtained, negative for acute hemorrhage, mass effect or midline shift. Patient received IV fluid bolus, with improvement in blood pressure. We will admit the patient for management of acute encephalopathy, acute,, hypoxic hypercapnic respiratory failure, and sepsis likely secondary to community-acquired pneumonia. We will start him on IV Rocephin and azithromycin, continue on BiPAP with supplemental oxygen, DuoNebs as needed. We will obtain follow-up blood gas and monitor closely. Patient has elevated troponin but no acute EKG findings, no chest pain discussed with cardiology, no heparin drip indicated at this time, we will trend troponin and monitor closely, appreciate recommendations. Echocardiography ordered, patient found to have positive urine methamphetamine. Patient received temporizing measures for hyperkalemia following with potassium level improved from 6.7-4.7. While in the ED, attempt was made to place to place Bertrand catheter, which was unsuccessful and patient had some bleeding, later on found to have 562 cc of urine in the bladder with bladder scan, another attempt was made to place a coud? catheter which was again unsuccessful. We will request the ED attending in the evening for suprapubic catheter placement. We will also obtain urology consult. Estevan Wagner MD
[2025-06-01] MEDS: SODIUM CHLORIDE 0.9% 1000 ML 1,000 ML 100 ML IV (13:00)
[2025-06-01 13:06] LABS: Reflex Lactate? Y
[2025-06-01] MEDS: LIDOCAINE JELLY 2% (Urojet) 10 ML TUBE TOP ×2 (13:30→16:30)
--- NOTE | 2025-06-01 13:30 | PC.NURSE ---
Unable to get urinary catheter in X 2, this RN tried and Jody arango RN attempted mendenhall insertion. Blood obtained in mendenhall and Dr. Little bedside states to stop trying to insert mendenhall. Dr. Little informed Dr. Wagner. Dr. Wagner states do not try to insert mendenhall again.
[2025-06-01 13:32] LABS: Albumin, Serum 4.1 gm/dL (3.4-4.8); Anion Gap 10 (7-16); BUN/Creatinine Ratio 7 Ratio (12-20); Blood Urea Nitrogen 24 mg/dL (9-23); Calcium 9.2 mg/dL (8.3-10.6); Calcium (Corrected) 9.2 mg/dL (8.5-10.1); Carbon Dioxide 28.1 mMol/L (20.0-31.0); Chloride 108 mMol/L (98-107); Creatinine (Component) 3.4 mg/dL (0.6-1.3); Glucose 194 mg/dL (74-106); Osmolality,Calculated 299 (275-295); Phosphorous 5.2 mg/dL (2.4-5.1); Potassium 4.7 mMol/L (3.4-5.1); Sodium 146 mMol/L (136-145); eGFR 19 See Note
[2025-06-01 13:36] LABS: Troponin I 2.891 ng/mL (0.0-0.045)
--- NOTE | 2025-06-01 13:51 | ESCONSULT_ITS ---
<Statement entered by Janette Carter MD - 06/07/25 14:31> I personally examined the patient and evaluated the patient with the resident physician Dr. Woods patient is a elderly male with history of hypertension mild CAD admitted to hospital with urinary tract infection sepsis troponin elevation possibly type II troponin elevation not have any chest pain shortness of hide altered mental status. Elderly patient emergency room with PGY 2 and. Agree with the treatment plan recommendation doubt very much evidence of any myocardial infarction here treat underlying sepsis and infection aggressively with antibiotics and hydration. The patient will be monitored closely after sepsis improves and white count is normal might consider coronary angiogram prior to discharge but no need for anticoagulation at this point agree with treatment plan recommendation as documented by PGY 2 Dr. Woods. Will continue to follow the patient. HPI Data of Consult Consult date: 06/01/25 Attending Provider: Raul Narvaez Primary Care Provider: Shaheed Scanlon NP Consult Narrative Reason for consult: elevated troponins History of present illness: 65-year-old male with past medical history of sleep apnea, hyperlipidemia, low testosterone on TRT, chronic back pain on morphine pump, GERD, depression and anxiety who presented to the ED due to altered mental status. Currently patient has been working all day in the sun the day before patient then became increasingly sweaty and then the inside the house became lethargic and later became altered. called paramedics and found him with a GCS of 10 and brought her to the ER noted to have a blood pressure of 80/50, HR 102 bpm, RR 20 and saturating about 90%. Patient was given 2 L of IV fluids with adequate improvement in mentation. Of note, patient had previous cardiac work up with [facility] in [place], including angiogram all which were negative for coronary blockages, per the family. Patient found to be hypercapneic and was placed on Bipap. Patient was admitted for sepsis and dixon. ED course: BP 80/50, HR 107 bpm, RR 24, saturating 88% on room air labs show leukocytosis of 26, potassium 6.7, creatinine 3.7, lactic acid of 4.2, troponin of 1.973, BNP 219. ABG showed acidosis with hypercapnia and was put on BiPAP. 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 cc:: cc: Review of Systems Review of Systems ROS Unobtainable: unobtainable due to mental status Exam Vital Signs Temp Pulse Resp BP Pulse Ox O2 Del Method FiO2 98.8 F 90 12 120/72 94 L BiPAP 50 06/01/25 09:15 06/01/25 13:01 06/01/25 13:01 06/01/25 13:01 06/01/25 13:01 06/01/25 13:01 06/01/25 13:01 Narrative Exam Physical Exam GENERAL: NAD, on BiPAP HEENT: dry mucosa. Eyes open, symmetrical, & clear CARDIO: Heart RRR, no obvious murmurs PULM: No noted coughing/dyspnea CTA B/L, no R/W/R GI: Abdomen soft, nondistended, no pain on palpation. BSx4 SKIN/MSK/EXT: No wounds/rashes/edema/amputations, no pain on palpation. Pedal pulses present B/L NEURO: AAOx3, no focal neuro deficits, able to move all 4 extremities Results Labs 06/01/25 11:05 06/01/25 12:54 Labs: Short CBC 06/01/25 Range/Units 11:05 WBC 26.0 H (3.8-10.6) Thou/mm3 Hgb 14.7 (13.5-16.0) g/dL Hct 47.0 (41.0-53.0) % Plt Count 374 (140-440) Thou/mm3 BMP 06/01/25 06/01/25 09:46 12:54 Sodium 142 146 H Potassium 6.7 H* 4.7 D Chloride 103 108 H Carbon Dioxide 26.8 28.1 BUN 18 24 H Creatinine 3.7 H 3.4 H Glucose 121 H 194 H D Calcium 9.0 9.2 Cardiac Enzymes 06/01/25 06/01/25 Range/Units 09:46 12:54 Total Creatine Kinase 272 H (34-171) U/L Troponin I 1.973 H* 2.891 H* D (0.0-0.045) ng/mL Liver Function 06/01/25 06/01/25 Range/Units 09:46 12:54 Total Bilirubin 0.8 (0.3-1.2) mg/dL AST 60 H (0-34) U/L ALT 36 (10-49) U/L Alkaline Phosphatase 112 (46-116) U/L Albumin 4.8 4.1 D (3.4-4.8) gm/dL Urine 06/01/25 Range/Units 10:55 Urine Color Yellow (Lt Yel-Yel) Urine Clarity Clear (Clear/Hazy) Urine pH 6.0 (5.0-7.0) Ur Specific Bric[place] 1.030 (1.001-1.035) Urine Protein 1+ A (Neg - Trace) Urine Glucose (UA) Negative (Negative) ABG Interpretation ABG results: 06/01/25 06/01/25 09:46 10:08 ABG pH 7.23 L ABG pCO2 61 H ABG pO2 57 L* ABG HCO3 26 ABG O2 Saturation 87 L ABG Base Excess -3 VBG pH 7.26 L VBG pCO2 50 VBG pO2 45 VBG Base Excess -5 L Quality Measures Quality Measures VTE prophylaxis Advance care planning discussed with:: patient, spouse and child Medications Home Medications and Allergies Home Medications ?Medication ?Instructions ?Recorded ?Confirmed ?Type quetiapine 100 mg tablet (Seroquel) 100 mg PO HS 03/1504/19/19 History Allergies Allergy/AdvReac Type Severity Reaction Status Date / Time iodine Allergy Severe Hives Verified 04/19/19 08:07 lactose Allergy Severe Diarrhea Verified 04/19/19 08:07 latex Allergy Severe Hives Verified 04/19/19 08:07 Visit Medications Acetaminophen (Acetaminophen 325 Mg Tablet) 650 mg PO Q6H PRN PRN Reason: Fever >101.4 Stop: 07/01/25 12:11 Albuterol/Ipratropium (Albuterol/Ipratropium (Duoneb) Rt [place] 3 Ml Nebu) 3 ml INH Q6HR PRN PRN Reason: SHORTNESS OF BREATH OR WHEEZE Stop: 07/01/25 12:11 Dextrose (Dextrose 50%-Water Inj 50 Ml Syringe) 25 ml IV Q15MIN PRN PRN Reason: BG 50-70 responsive npo pt Stop: 07/01/25 10:56 Dextrose (Dextrose 50%-Water Inj 50 Ml Syringe) 50 ml IV Q15MIN PRN PRN Reason: BG <50 OR BG <70 & pt unresponsive Stop: 07/01/25 10:56 Glucagon (Glucagon Inj 1 Mg Vial) 1 mg IM Q15MIN PRN PRN Reason: BG <70, and no IV access Heparin Sodium (Porcine) (Heparin Sod Inj 5000 Unit/Ml Vial) 5,000 unit SC Q12HR [facility] Stop: 06/15/25 20:59 Ceftriaxone Sodium/Dextrose (Rocephin/D5w 1gm Iv Premix) 1 gm in 50 mls @ 100 mls/hr IV QDAY [facility] Stop: 06/08/25 12:16 Last Admin: 06/01/25 12:55 Dose: 100 mls/hr Azithromycin 500 mg/ Sodium (Chloride) 250 mls @ 250 mls/hr IV QDAY [facility] Stop: 06/09/25 08:59 Sodium Chloride (Ns) 1,000 mls @ 100 mls/hr IV .Q10H [facility] Stop: 06/01/25 22:19 Last Admin: 06/01/25 13:00 Dose: 100 mls/hr Ondansetron HCl (Ondansetron Inj 2 Mg/Ml Inj 2 Ml) 4 mg IVP Q4HR PRN PRN Reason: NAUSEA OR VOMITING Stop: 07/01/25 09:27 Pantoprazole Sodium (Pantoprazole Inj 40 Mg Vial) 40 mg IVP QDAY [facility] Stop: 07/02/25 08:59 Sennosides (Senna Tablet) 1 tab PO QDAY [facility]; Protocol Stop: 07/02/25 08:59 Discontinued Medications Albuterol (Albuterol Rt 2.5 Mg/0.5 Ml Nebu) 10 mg INH X1 ONE Stop: 06/01/25 11:00 Last Admin: 06/01/25 11:05 Dose: 10 mg Aspirin (Aspirin 325 Mg Tablet) 325 mg PO X1 ONE Stop: 06/01/25 11:04 Last Admin: 06/01/25 11:20 Dose: 325 mg Calcium Chloride (Calcium Chloride 10% Inj 10 Ml Syrg) 10 ml IV X1 ONE Stop: 06/01/25 11:34 Last Admin: 06/01/25 11:45 Dose: 10 ml Calcium Gluconate (Calcium Gluconate 10% Inj 1 Gm/10 Ml Vial) 1 gm IV X1 ONE Stop: 06/01/25 11:10 Dextrose (Dextrose 50%-Water Inj 50 Ml Syringe) 100 ml IV X1 ONE Stop: 06/01/25 10:58 Last Admin: 06/01/25 11:24 Dose: 100 ml Lactated Ringer's (Lactated Ringers) 1,000 mls @ 999 mls/hr IV .Q1H1M ONE Stop: 06/01/25 11:00 Last Infusion: 06/01/25 10:16 Dose: Infused Sodium Chloride (Ns) 1,000 mls @ 999 mls/hr IV .Q1H1M ONE Stop: 06/01/25 11:38 Last Infusion: 06/01/25 11:43 Dose: Infused Sodium Chloride (Ns) 1,000 mls @ 75 mls/hr IV .[id number] [facility] Stop: 06/02/25 00:46 Last Admin: 06/01/25 11:41 Dose: 75 mls/hr Cefepime HCl 2 gm/ Sodium (Chloride) 50 mls @ 100 mls/hr IV X1 ONE Stop: 06/01/25 11:59 Last Infusion: 06/01/25 12:11 Dose: Infused Doxycycline Hyclate 100 mg/ (Sodium Chloride) 100 mls @ 100 mls/hr IV X1 ONE Stop: 06/01/25 12:29 Last Admin: 06/01/25 12:51 Dose: 100 mls/hr Azithromycin 500 mg/ Sodium (Chloride) 250 mls @ 250 mls/hr IV X1 ONE Stop: 06/01/25 13:29 Insulin Human Regular (Insulin Hum Regular 1 Unit/0.01 Ml (Per Unit)) 10 unit IV X1 ONE Stop: 06/01/25 10:58 Last Admin: 06/01/25 11:21 Dose: 10 unit Lidocaine HCl (Lidocaine Jelly 2% (Urojet) 10 Ml Tube) 0 ml TOP X1 ONE Stop: 06/01/25 13:17 Sodium Polystyrene Sulfonate (Sod Polystyrene Sulfon Susp 15 Gm/60 Ml Btl) 30 gm PO X1 ONE Stop: 06/01/25 10:58 Last Admin: 06/01/25 11:18 Dose: 30 gm Assessment & Plan Plan 65-year-old male with past medical history of sleep apnea, hyperlipidemia, low testosterone on TRT, chronic back pain on morphine pump, GERD, depression and anxiety who presented to the ED due to altered mental status. Admitted for sepsis, dixon, elevated troponins. Cardiology consulted. #NSTEMI, likely type II Patient denies chest pain or pressure time. Currently on Bipap EKG shows no acute ST elevations Troponin is elevated at 1.9, likely secondary to underlying sepsis Patient had previous cardiac work up with [facility] in [place], including angiogram all which were negative, per the family, will review records. ? Treat underlying sepsis ? No need for heparin drip at this time ? Aspirin 325mg x1 ? Trend troponins till downtrending then can discontinue #DIXON, likely prerenal #Hyperkalemia #GERD #Chronic pain s/p subcutaneous pump #Depression #Anxiety ?As per primary team Case discussed with my attending Dr. Raul Woods MD PGY-2 Disclaimer: Despite multiple revisions, due to the dictation software being used, the document bellow may not be free of grammatical errors including phonetic/typographic errors. However, this does not deter from our commitment to providing health care in the patient's best interest in mind.
[2025-06-01 14:25] LABS: Lactic Acid, 3 HR 2.0 mMol/L (0.4-2.0)
[2025-06-01 14:26] LABS: Base Excess, Venous -2 (-3-3); O2 Saturation, Venous 90 % (96-97); PCO2, Venous 54 mmHg (36-56); PO2, Venous 75 mmHg (15-58); pH, Venous 7.29 (7.33-7.66)
[2025-06-01] MEDS: AZITHROMYCIN INJ 500 MG in SODIUM CHLORIDE 0.9% 250 ML 250 ML 250 MG IV (14:42)
--- NOTE | 2025-06-01 15:38 | PC.NURSE ---
called Dr. Casas [id number], pt. has 662 ml urine in bladder per bladder scan, Dr. Casas states to in and out cath pt. with smallest catheter. Kiana CLARK informed and states she will cath pt.
--- NOTE | 2025-06-01 15:50 | PC.NURSE ---
Patient arrived to unit from ED, patient awake, alert, and oriented to self and place. Patient on bipap with o2 saturation 100%. pt states unable to void, ,bladder scan performed, showed 662. notified Dr. Casas. in and out cath ordered and attempted, unsuccessful; again notified Dr. Cassa, she stated will come up to see the patient and asked for a coude mendenhall.
[2025-06-01] MEDS: LIDOCAINE HCL 1% 20 ML VIAL 10 ML IM (19:58)
--- NOTE | 2025-06-01 20:00 | PC.NURSE ---
Dr. Hurtado and resident Dr. Covarrubias at bedside to insert suprapubic catheter. Consent signed.
[2025-06-01] MEDS: HEPARIN SOD INJ 5000 UNIT/ML VIAL SC (20:32)
--- NOTE | 2025-06-01 20:35 | PD.RESPROC ---
PROCEDURES: Procedure Date / Time 06/01/252034 Catheter Insertion (Urinary) Patient has the following: other (Suprapubic) Informed consent obtained: from patient and obtained from surrogate decision maker Time out done, and the following verified: correct patient, side and site, procedure, patient position and implants and/or equipment Prophylactic antibiotics given: Yes Bladder Scan/Ultrasound used before catheterization: Yes Estimated amount of urin (mLs): 60 Preparation: Povidone-Iodine Type of catheter inserted: other (Suprapubic) Topical anesthesia used: Yes Results: successfully catheterized-immediate flow Patient tolerated procedure: well EBL(ml): 1 Complications: none
[2025-06-01 21:21] LABS: Troponin I 4.285 ng/mL (0.0-0.045)
[2025-06-02] VITALS (12 sets, daily range): BP systolic 105–135; BP diastolic 61–82; PULSE 82–110; RESP 16–28; TEMP 36.2–37.7; O2SAT 95–98; BMI 27.9
--- NOTE | 2025-06-02 04:30 | PC.NURSE ---
Called hospitalist, spoke to resident Dr. Yadav. Made aware pt output is over 900ml; however urine is dark in color. Inform pt was receiving IV fluids but was discontinued due to urinary retention. Since pt now has a suprapubic catheter with good output, asked MD if IV fluids should be restarted; no new orders received, per MD will let day shift know.
[2025-06-02 05:12] LABS: Basophils # (Auto) 0.1 Thou/mm3 (0.0-0.2); Basophils % (Auto) 0 % (0-2.5); Eosinophils # (Auto) 0.0 Thou/mm3 (0.0-0.5); Eosinophils % (Auto) 0 % (0-10); Hematocrit 46.4 % (41.0-53.0); Hemoglobin 14.3 g/dL (13.5-16.0); Immature Granulocytes Auto 0.14 Thou/mm3 (0.00-0.00); Lymphocytes # (Auto) 1.2 Thou/mm3 (1.0-4.8); Lymphocytes % (Auto) 5 % (10-50); Mean Corpuscular HGB Conc 30.8 g/dl (31.0-37.0); Mean Corpuscular Hemoglobin 27.8 pg (25.0-35.0); Mean Corpuscular Volume 90 fL (80-100); Monocytes # (Auto) 2.4 Thou/mm3 (0.0-0.8); Monocytes % (Auto) 9 % (0-12); Neutrophils # (Auto) 22.4 Thou/mm3 (1.8-7.7); Neutrophils % (Auto) 85 % (37-80); Nucleated Red Blood Cell # 0.00 Thou/mm3 (0.00-0.00); Nucleated Red Blood Cell % 0 /100 WBC (0); Platelet Count 302 Thou/mm3 (140-440); RDW Standard Deviation 47.0 fL (35.1-43.9); Red Blood Count 5.14 Miln/mm3 (4.50-5.90); White Blood Count 26.2 Thou/mm3 (3.8-10.6)
[2025-06-02 05:35] LABS: Glucose Estimated Average 126 mg/dL (80-131); Hemoglobin A1C 6.0 % Hgb (4.8-6.0)
[2025-06-02 05:39] LABS: Alanine Aminotransferase 38 U/L (10-49); Albumin, Serum 4.0 gm/dL (3.4-4.8); Albumin/Globulin Ratio 2.0 (1.2-2.2); Alkaline Phosphatase 119 U/L (46-116); Anion Gap 11 (7-16); Aspartate Amino Transferase 54 U/L (0-34); BUN/Creatinine Ratio 9 Ratio (12-20); Bilirubin,Total 0.5 mg/dL (0.3-1.2); Blood Urea Nitrogen 30 mg/dL (9-23); Calcium 8.7 mg/dL (8.3-10.6); Calcium (Corrected) 8.7 mg/dL (8.5-10.1); Carbon Dioxide 27.5 mMol/L (20.0-31.0); Cardiac Risk Estimate 2.9 RATIO (4.0-6.7); Chloride 108 mMol/L (98-107); Cholesterol 79 mg/dL (132-200); Creatine Kinase 556 U/L (34-171); Creatinine (Component) 3.2 mg/dL (0.6-1.3); Globulin 2.0 gm/dL (2.3-3.5); Glucose 133 mg/dL (74-106); HDL Cholesterol 27 mg/dL (40-60); LDL Cholesterol,Calculated 32 mg/dL (0-130); Osmolality,Calculated 298 (275-295); Potassium 5.4 mMol/L (3.4-5.1); Sodium 146 mMol/L (136-145); Thyroid Stimulating Hormone 0.44 uIU/mL (0.55-4.78); Total Protein 6.0 gm/dL (5.7-8.2); Triglycerides 99 mg/dL (30-150); eGFR 21 See Note
--- NOTE | 2025-06-02 07:43 | EKG_ITS ---
[facility] Test Date: 2025-06-02 Pat Name: SHERRI VALENZUELA [facility]: Male [employer]: KT : 1960 Requested By: Estevan Wagner Order Number: [id number] Reading MD: Estevan Wagner Measurements Intervals [place] Rate: 102 P: 64 MA: 133 QRS: 1 QRSD: 107 T: 30 QT: 333 QTc: 436 Interpretive Statements SINUS TACHYCARDIA INCOMPLETE RIGHT BUNDLE BRANCH BLOCK ABNORMAL RHYTHM ECG Compared to ECG 06/01/2025 09:25:42 Incomplete right bundle-branch block now present T-wave abnormality no longer present /store/S0/[id number]
[2025-06-02] MEDS: HEPARIN SOD INJ 5000 UNIT/ML VIAL SC (08:10)
[2025-06-02] MEDS: cefTRIAXone/D5w 1gm IV premix 1 GM/50 ML BAG IV (08:11)
[2025-06-02] MEDS: AZITHROMYCIN INJ 500 MG in SODIUM CHLORIDE 0.9% 250 ML 250 ML 250 MG IV (08:11)
[2025-06-02 08:59] LABS: Troponin I 3.345 ng/mL (0.0-0.045)
--- NOTE | 2025-06-02 08:59 | PD.RESCONSUL ---
HPI Data of Consult Consult date: 06/02/25 Requesting Physician: Estevan Wagner MD Admitting Provider: Estevan Wagner MD Attending Provider: Estevan Wagner MD Primary Care Provider: Shaheed Scanlon NP Consult Narrative Reason for consult: DIXON History of present illness: History of Present Illness: 65-year-old male with a past medical history of chronic back pain with subcutaneous infusion pump, depression/anxiety, GERD, migraines, sleep apnea, HLD, and on testosterone replacement therapy, presented to the hospital on 06/01/2025 due to altered mental staus. Patient was at [facility] at the time, there for most of the history was taken from patient?s . The day before admission, patient was complaining of excessive sweating and had 1 episode of vomiting after breakfast. On 06/01, patient remained unresponsive with pinpoint pupils, therefore, called ambulance. Per ED note, EMS was called and stitch cleaner that arrived on the scene noted GCS of 10. Patient was then brought to the ED by EMS, and EMS staff did note blood pressure of 80/50, heart rate 102, respiratory rate 20, and pulse ox 91% O2 saturation. After receiving 2 L of fluid bolus and being started on maintenance fluid, patient was noted to have significant improvement of altered mental status. Patient was admitted for DIXON and sepsis. Nephrology has been consulted for management of DIXON. ED course: Initial vitals were significant for blood pressure 80/50, heart rate 107, respiratory rate 24, and O2 saturation 88% on room air. Initial labs were significant for WBC 26.0, potassium 6.7, creatinine 3.7, lactic acid 4.2, troponin 1.973, and BNP 219. ABG showed pH of 7.23, pCO2 61, and pO2 57. VBG showed pH 7.26 and PaO2 77. Labs within normal limits noted to be ammonia and procalcitonin. Urinalysis negative. U tox positive for opiates and methamphetamine. EKG negative for ST elevations. CXR negative for pneumonia, CT head negative for acute processes. Gave patient 1 L LR and 1 L NS. Patient was started on BiPAP given high pCO2. Patient given Kayexalate 30 mg p.o., albuterol 10 mg inhaled, and 10 units of insulin with 500 of D50 for management of hyperkalemia. Consulted nephrology, who recommended continuing IV maintenance fluid and Bertrand catheter insertion. Consulted manager china, who recommended trending troponins, giving loading dose of aspirin, and deferring heparin drip for now. Past Surgical History: Sternum repair ( for ribs growing inwards , 9 to 15 years old), left rotator cuff repair, back surgery x 2, implantation of pain pump in right lower abdomen (morphine). Current Medication(s): Patient's family is unsure, pending med rec. Allergies (w/ Reactions): Iodine and latex (hives) Family History: Noncontributory Alcohol Intake: Patient denies Tobacco/Vape Use: Patient denies Other Drug Use: Patient denies 06/02/2025: Labs reviewed and patient examined at the bedside. Patient is awake and alert and was able to interact with medical providers. However was on BiPAP. His was beside him and was able to provide us with the history. Placement of Bertrand Catheter has been attempted due to urinary retention, but was unable to do so. Therefore, Suprapubic catheter has been placed. Potassium was high with 5.4. Kayexalate 30mg PO x1 was given. BP:118/72 BUN: 40, Cr:3.2, eGFR:21 cc:: cc: Estevan Wagner MD Review of Systems Review of Systems Narrative Review of Systems: All 12 systems assessed and the patient denies unless otherwise stated in HPI Exam Vital Signs Temp Pulse Resp BP Pulse Ox O2 Del Method FiO2 99.8 F 93 23 H 112/71 96 BiPAP 45 06/02/25 04:00 06/02/25 04:00 06/02/25 04:00 06/02/25 04:00 06/02/25 04:00 06/02/25 04:00 06/02/25 02:28 Narrative Exam General: well nourished, AAO x3 Eye: normal conjunctiva, no scleral icterus, pinpoint pupil HENT: Normocephalic, atraumatic, hearing intact to conversation at normal volume, moist oral mucosa Neck: Supple, non-tender, no JVD, no lymphadenopathy Lungs: Non-labored respirations, symmetric chest rise, Clear to auscultate bilaterally, No wheezing, rhonchi, crackles Heart: Peripheral pulses intact bilaterally, Regular Rate and Rhythm. Abdomen: Soft, non-tender, non-distended, no palpable masses, Suprapubic catheter placement Musculoskeletal: Normal range of motion and strength, No cyanosis or edema, No visible joint swelling Skin: Skin is warm, dry, no rashes or lesions. Psychiatric: Cooperative, appropriate mood and affect, Awake and alert Neuro: Cranial nerves II-XII grossly intact. Sensations intact to light touch. Results Labs 06/02/25 04:35 06/02/25 12:40 Labs: Short CBC 06/01/25 06/02/25 Range/Units 11:05 04:35 WBC 26.0 H 26.2 H (3.8-10.6) Thou/mm3 Hgb 14.7 14.3 (13.5-16.0) g/dL Hct 47.0 46.4 (41.0-53.0) % Plt Count 374 302 D (140-440) Thou/mm3 BMP 06/01/25 06/01/25 06/02/25 09:46 12:54 04:35 Sodium 142 146 H 146 H Potassium 6.7 H* 4.7 D 5.4 H D Chloride 103 108 H 108 H Carbon Dioxide 26.8 28.1 27.5 BUN 18 24 H 30 H Creatinine 3.7 H 3.4 H 3.2 H Glucose 121 H 194 H D 133 H D Calcium 9.0 9.2 8.7 Cardiac Enzymes 06/01/25 06/01/25 06/01/25 Range/Units 09:46 12:54 20:31 Total Creatine Kinase 272 H (34-171) U/L Troponin I 1.973 H* 2.891 H* D 4.285 H* D (0.0-0.045) ng/mL 06/02/25 Range/Units 04:35 Total Creatine Kinase 556 H D (34-171) U/L Troponin I (0.0-0.045) ng/mL Liver Function 06/01/25 06/01/25 06/02/25 Range/Units 09:46 12:54 04:35 Total Bilirubin 0.8 0.5 (0.3-1.2) mg/dL AST 60 H 54 H (0-34) U/L ALT 36 38 (10-49) U/L Alkaline Phosphatase 112 119 H (46-116) U/L Albumin 4.8 4.1 D 4.0 (3.4-4.8) gm/dL Urine 06/01/25 Range/Units 10:55 Urine Color Yellow (Lt Yel-Yel) Urine Clarity Clear (Clear/Hazy) Urine pH 6.0 (5.0-7.0) Ur Specific [place] 1.030 (1.001-1.035) Urine Protein 1+ A (Neg - Trace) Urine Glucose (UA) Negative (Negative) ABG Interpretation ABG results: 06/01/25 06/01/25 06/01/25 09:46 10:08 14:16 ABG pH 7.23 L ABG pCO2 61 H ABG pO2 57 L* ABG HCO3 26 ABG O2 Saturation 87 L ABG Base Excess -3 VBG pH 7.26 L 7.29 L VBG pCO2 50 54 VBG pO2 45 75 H D VBG Base Excess -5 L -2 Quality Measures Quality Measures VTE prophylaxis Advance care planning discussed with:: patient and other Medications Home Medications and Allergies Home Medications ?Medication ?Instructions ?Recorded ?Confirmed ?Type aluminum-mag hydroxide-simethicone 10 ml PO Q6H PRN indigestion 06/01/25 06/01/25 History 400 mg-400 mg-40 mg/5 mL oral susp azelastine 137 mcg (0.1 %) nasal 2 spray intranasal Q12H PRN 06/01/25 06/01/25 History spray allergy symptoms cetirizine 10 mg capsule (Zyrtec) 10 mg PO QDAY PRN allergy symptoms 06/01/25 06/01/25 History escitalopram oxalate 10 mg tablet 10 mg PO QDAY 06/01/25 06/01/25 History fexofenadine 30 mg disintegrating 30 mg PO DAILY PRN allergy symptoms 06/01/25 06/01/25 History tablet galcanezumab-gnlm 120 mg/mL 120 mg subcut QMONTH 06/01/25 06/01/25 History subcutaneous pen injector (Emgality Pen) ipratropium bromide 21 mcg (0.03 2 spray intranasal BID 06/01/25 06/01/25 History %) nasal spray ipratropium bromide 42 mcg (0.06 2 spray intranasal QDAY 06/01/25 06/01/25 History %) nasal spray levocetirizine 5 mg tablet 5 mg PO QPM 06/01/25 06/01/25 History loratadine 10 mg tablet (Claritin) 10 mg PO Q24H PRN allergy symptoms 06/01/25 06/01/25 History olanzapine 5 mg tablet 5 mg PO HS 06/01/25 06/01/25 History ondansetron 4 mg disintegrating 4 mg PO Q8H PRN nausea and vomiting 06/01/25 06/01/25 History tablet oxymetazoline 0.05 % nasal spray 2 spray intranasal BID 06/01/25 06/01/25 History (Afrin (oxymetazoline)) pantoprazole 40 mg tablet,delayed 40 mg PO QDAY 06/01/25 06/01/25 History release rosuvastatin 20 mg tablet 20 mg PO QDAY 06/01/25 06/01/25 History testosterone cypionate 200 mg/mL 200 mg subcut Q14D 06/01/25 06/01/25 History intramuscular oil Allergies Allergy/AdvReac Type Severity Reaction Status Date / Time iodine Allergy Severe Hives Verified 04/19/19 08:07 lactose Allergy Severe Diarrhea Verified 04/19/19 08:07 latex Allergy Severe Hives Verified 04/19/19 08:07 Visit Medications Acetaminophen (Acetaminophen 325 Mg Tablet) 650 mg PO Q6H PRN PRN Reason: Fever >101.4 Stop: 07/01/25 12:11 Albuterol/Ipratropium (Albuterol/Ipratropium (Duoneb) Rt [place] 3 Ml Nebu) 3 ml INH Q6HR PRN PRN Reason: SHORTNESS OF BREATH OR WHEEZE Stop: 07/01/25 12:11 Dextrose (Dextrose 50%-Water Inj 50 Ml Syringe) 25 ml IV Q15MIN PRN PRN Reason: BG 50-70 responsive npo pt Stop: 07/01/25 10:56 Dextrose (Dextrose 50%-Water Inj 50 Ml Syringe) 50 ml IV Q15MIN PRN PRN Reason: BG <50 OR BG <70 & pt unresponsive Stop: 07/01/25 10:56 Glucagon (Glucagon Inj 1 Mg Vial) 1 mg IM Q15MIN PRN PRN Reason: BG <70, and no IV access Heparin Sodium (Porcine) (Heparin Sod Inj 5000 Unit/Ml Vial) 5,000 unit SC Q12HR GERMAN Stop: 06/15/25 20:59 Last Admin: 06/02/25 08:10 Dose: 5,000 unit Ceftriaxone Sodium/Dextrose (Rocephin/D5w 1gm Iv Premix) 1 gm in 50 mls @ 100 mls/hr IV QDAY [facility] Stop: 06/06/25 12:16 Last Admin: 06/02/25 08:11 Dose: 100 mls/hr Azithromycin 500 mg/ Sodium (Chloride) 250 mls @ 250 mls/hr IV QDAY [facility] Stop: 06/04/25 09:59 Last Admin: 06/02/25 08:11 Dose: 250 mls/hr Lactated Ringer's (Lactated Ringers) 1,000 mls @ 125 mls/hr IV .Q8H ONE Stop: 06/02/25 15:59 Ondansetron HCl (Ondansetron Inj 2 Mg/Ml Inj 2 Ml) 4 mg IVP Q4HR PRN PRN Reason: NAUSEA OR VOMITING Stop: 07/01/25 09:27 Pantoprazole Sodium (Pantoprazole Inj 40 Mg Vial) 40 mg IVP QDAY [facility] Stop: 07/02/25 08:59 Last Admin: 06/02/25 08:10 Dose: 40 mg Sennosides (Senna Tablet) 1 tab PO QDAY [facility]; Protocol Stop: 07/02/25 08:59 Discontinued Medications Albuterol (Albuterol Rt 2.5 Mg/0.5 Ml Nebu) 10 mg INH X1 ONE Stop: 06/01/25 11:00 Last Admin: 06/01/25 11:05 Dose: 10 mg Aspirin (Aspirin 325 Mg Tablet) 325 mg PO X1 ONE Stop: 06/01/25 11:04 Last Admin: 06/01/25 11:20 Dose: 325 mg Calcium Chloride (Calcium Chloride 10% Inj 10 Ml Syrg) 10 ml IV X1 ONE Stop: 06/01/25 11:34 Last Admin: 06/01/25 11:45 Dose: 10 ml Calcium Gluconate (Calcium Gluconate 10% Inj 1 Gm/10 Ml Vial) 1 gm IV X1 ONE Stop: 06/01/25 11:10 Dextrose (Dextrose 50%-Water Inj 50 Ml Syringe) 100 ml IV X1 ONE Stop: 06/01/25 10:58 Last Admin: 06/01/25 11:24 Dose: 100 ml Lactated Ringer's (Lactated Ringers) 1,000 mls @ 999 mls/hr IV .Q1H1M ONE Stop: 06/01/25 11:00 Last Infusion: 06/01/25 10:16 Dose: Infused Sodium Chloride (Ns) 1,000 mls @ 999 mls/hr IV .Q1H1M ONE Stop: 06/01/25 11:38 Last Infusion: 06/01/25 11:43 Dose: Infused Sodium Chloride (Ns) 1,000 mls @ 75 mls/hr IV .[id number] GERMAN Stop: 06/02/25 00:46 Last Admin: 06/01/25 11:41 Dose: 75 mls/hr Cefepime HCl 2 gm/ Sodium (Chloride) 50 mls @ 100 mls/hr IV X1 ONE Stop: 06/01/25 11:59 Last Infusion: 06/01/25 12:11 Dose: Infused Doxycycline Hyclate 100 mg/ (Sodium Chloride) 100 mls @ 100 mls/hr IV X1 ONE Stop: 06/01/25 12:29 Last Infusion: 06/01/25 13:51 Dose: Infused Azithromycin 500 mg/ Sodium (Chloride) 250 mls @ 250 mls/hr IV QDAY [facility] Stop: 06/09/25 08:59 Sodium Chloride (Ns) 1,000 mls @ 100 mls/hr IV .Q10H GERMAN Stop: 06/01/25 22:19 Last Admin: 06/01/25 13:00 Dose: 100 mls/hr Azithromycin 500 mg/ Sodium (Chloride) 250 mls @ 250 mls/hr IV X1 ONE Stop: 06/01/25 13:29 Last Admin: 06/01/25 14:42 Dose: 250 mls/hr Azithromycin 500 mg/ Sodium (Chloride) 250 mls @ 250 mls/hr IV QDAY [facility] Stop: 06/04/25 09:59 Lactated Ringer's (Lactated Ringers) 1,000 mls @ 999 mls/hr IV .Q1H1M ONE Stop: 06/02/25 08:50 Insulin Human Regular (Insulin Hum Regular 1 Unit/0.01 Ml (Per Unit)) 10 unit IV X1 ONE Stop: 06/01/25 10:58 Last Admin: 06/01/25 11:21 Dose: 10 unit Lidocaine HCl (Lidocaine Jelly 2% (Urojet) 10 Ml Tube) 0 ml TOP X1 ONE Stop: 06/01/25 13:17 Last Admin: 06/01/25 13:30 Dose: 10 ml Lidocaine HCl (Lidocaine Jelly 2% (Urojet) 10 Ml Tube) 0 ml TOP X1 ONE Stop: 06/01/25 16:13 Last Admin: 06/01/25 16:30 Dose: 10 ml Lidocaine HCl (Lidocaine Hcl 1% 20 Ml Vial) 10 ml IM X1 ONE Stop: 06/01/25 19:46 Last Admin: 06/01/25 19:58 Dose: 10 ml Sodium Polystyrene Sulfonate (Sod Polystyrene Sulfon Susp 15 Gm/60 Ml Btl) 30 gm PO X1 ONE Stop: 06/01/25 10:58 Last Admin: 06/01/25 11:18 Dose: 30 gm Sodium Polystyrene Sulfonate (Sod Polystyrene Sulfon Susp 15 Gm/60 Ml Btl) 30 gm PO X1 ONE Stop: 06/02/25 07:40 Sodium Polystyrene Sulfonate (Sod Polystyrene Sulfon Susp 15 Gm/60 Ml Btl) 15 gm PO X1 ONE Stop: 06/02/25 07:44 Assessment & Plan Plan 65-year-old male with a past medical history of chronic back pain with subcutaneous infusion pump, depression/anxiety, GERD, migraines, sleep apnea, HLD, and on testosterone replacement therapy, presented to the hospital on 06/01/2025 due to altered mental status. Patient was admitted for DIXON and sepsis. Nephrology has been consulted for management of DIXON. #DIXON #2/2 pre-renal vs urinary retention -In January 2025, patient's Cr:1.2, eGFR:67 -Upon admission, BP:80/50, BUN 24 , Cr 3.4 (Baseline of 1.2), eGFR 17 -DIXON could be secondary to pre-renal due to hypoperfusion vs post-renal due to urinary retention. -Suprapubic catheter is in place Plan: -1L IVF LR 125ml/hr -Continue to monitor renal function -Ordered random urine total protein, electrolytes, and creatinine -Avoid nephrotoxins -Renally dose medication #Hyperkalemia -High potassium of 5.4 this morning Plan: -Kayexalate 30mg POx1 #Acute hypoxic respiratory failure #Acute hypercapnic respiratory failure #Sepsis 2/2 #Commune acquired pneumonia #Lactic acidosis, resolved #Leukocytosis #NSTEMI, type I versus type II #Elevated troponins #Methamphetamine use #GERD #Chronic pain s/p subcutaneous pump #Depression #Anxiety #Testosterone supplementation -Management per Primary Hospitalist team Thank you for allowing us to participate in the care of your patient. Patient is stable in nephrology standpoint. No further recommendations. Attending Provider Attestation/Addendum Patient seen and examined with resident physician Dr. Davis. Note reviewed, agree with findings and recommendations. Patient currently seen in telemetry. at bedside. DIXON most likely related to obstructive uropathy superimposed on prerenal azotemia. Patient has suprapubic catheter. Needs urology follow-up as an outpatient. Unable to place Bertrand catheter yesterday in the ER. Hyperkalemia improved. No need for emergency dialysis. Patient started to make urine. Thank you Estevan for allowing me to participate in the care of Mr. Ocampo
[2025-06-02] MEDS: RINGERS LACTATED 1000 ML 1,000 ML 125 ML IV ×2 (09:20→18:47)
[2025-06-02] MEDS: SOD POLYSTYRENE SULFON SUSP 15 GM/60 ML BTL 30 GM PO (09:20)
[2025-06-02 09:27] LABS: Free T4 (Free Thyroxine) 0.92 ng/dL (0.89-1.76)
--- NOTE | 2025-06-02 09:28 | PC.SS ---
Follow up note: On IV antibiotic, IV fluids. Nephro and Cardio recommendations pending.
[2025-06-02 09:29] LABS: Inspired Oxygen, FIO2 55 %
[2025-06-02 09:30] LABS: Base Excess -1 (-3-3); HCO3 26 mEq/L (20-26); O2 Saturation 98 % (91-98); PCO2 53 mmHg (32.0-48.0); PO2 95 mmHg (83-108); pH, Arterial 7.31 (7.35-7.45)
[2025-06-02 09:38] LABS: Allen Test Performed/OK; Puncture Site Left Brachial
[2025-06-02 11:17] LABS: Protein Total, Random Urine 165 mg/dL (1-14)
--- NOTE | 2025-06-02 11:49 | ESPR_ITS ---
<Statement entered by Sean Casas MD - 06/03/25 09:28> No acute overnight events. Overnight, as patient had severe urinary retention and unable to pass the Bertrand catheter/coud? ED doctor was consulted and he placed suprapubic catheter. Patient is on BiPAP since yesterday. Vitals are stable except for sinus tachycardia with heart rate in the low 100s. Patient denies any other complaints. But still appears to be confused and is not oriented to the place but oriented to person, self and time. Patient made good amount of urine overnight. Physical examination remains unremarkable. Labs done this morning still showed elevated WBC, 26.2, sodium 146, potassium 5.4, chloride 108, BUN 30, creatinine downtrended to 3.2. Troponins down trended to 3.345. TSH is low but free T4 is within normal limits. Nurse at the bedside reported that patient desaturated when he was taken off BiPAP. Later after an hour again tried weaning of BiPAP and patient maintained good saturations and is able to maintain 95 to 96% on 4 L oxygen. A dose of 30 mEq of Kayexalate is given in view of hyperkalemia. Repeat renal panel ordered around afternoon showed potassium within normal limits and also noted to have significant improvement in renal functions, creatinine 2.8. Will continue IV fluids, 1 L LR at 125 mL/h. Patient passed bedside swallow eval and recommended to take plenty of oral fluids. Resumed his home medications. Will continue to monitor renal functions. Currently continuing his morphine pump. # Acute encephalopathy, likely metabolic # Acute hypoxic hypercapnic respiratory failure # Severe sepsis, unknown source -suspecting community-acquired pneumonia # Elevated troponins, likely NSTEMI II I have personally seen and examined the patient, agree with residents assessment and plan Patient plan of care was discussed with the attending physician, Dr. Bernard Casas, PGY2 Documentation for date of: 06/02/25 Subjective Subjective Interval history: Overnight events: No acute events overnight. Patient was seen and examined at bedside. AM vitals and labs reviewed. Patient appeared to be confused today. Patient thought that he was at the clinic rather than the hospital. Repetitive motion of chin up or down and eyebrows up and down noted. Per patient's , sometimes he does that if he is anxious. Attempted to see how patient saturated on room air, but patient was not tolerating and had O2 desat. Start patient on 3 L nasal cannula and patient was saturating 93% O2. WBC 26.2, potassium 5.4, creatinine 3.2, total CK 546, TSH 0.44, free T4 0.92. Troponin overnight peaked at 4.285, repeat troponin at 4 AM noted to be downtrending at 3.345. Hemoglobin A1c 6.0%. Suprapubic catheter in place. Ordered 1 L LR. Renal panel ordered for the afternoon. Consulted urology, Dr. Hsieh, for urinary retention. Review of systems otherwise negative except for what is mentioned above. Exam Vital Signs Temp Pulse Resp BP Pulse Ox O2 Del Method FiO2 97.2 F 104 H 28 H 117/71 97 BiPAP 45 06/02/25 08:00 06/02/25 08:00 06/02/25 08:00 06/02/25 08:00 06/02/25 08:00 06/02/25 08:00 06/02/25 02:28 Narrative Exam Physical Exam: General: Alert, no acute distress. Voice soft. Skin: Warm, dry, intact. Head: Normocephalic, atraumatic. Eye: Normal conjunctiva, pinpoint pupils, slowly reactive to light. Throat: Oral mucosa moist. No obvious lesions in oropharynx. Cardiovascular: Regular rate and rhythm, no murmur, +S1/S2. Respiratory: Lungs are clear to auscultation, respirations unlabored, no crackles, no wheezing. Gastrointestinal: Soft, nontender, distended. No guarding or rebound tenderness. Extremities: No edema, no cyanosis, no clubbing. Neuro: No focal deficits observed. Conversant, moving all extremities. No overt cerebellar signs/incoordination. Psychiatric: Cooperative, appropriate affect. Objective Labs 06/02/25 04:35 06/02/25 12:40 Labs: Laboratory Results - last 24 hr 06/01/25 06/01/25 06/01/25 10:55 12:54 14:16 WBC RBC Hgb Hct MCV MCH MCHC RDW Std Deviation Plt Count Neut % (Auto) Lymph % (Auto) Ashley % (Auto) Eos % (Auto) Baso % (Auto) Neut # (Auto) Lymph # (Auto) Ashley # (Auto) Eos # (Auto) Baso # (Auto) Immature Gran # (Auto) Absolute Nucleated RBC Immature Gran % Nucleated RBC % Puncture Site ABG pH ABG pCO2 ABG pO2 ABG HCO3 ABG O2 Saturation ABG Base Excess VBG pH 7.29 L VBG pCO2 54 VBG pO2 75 H D VBG O2 Sat (Elsa) 90 L D VBG Base Excess -2 FiO2 Sodium 146 H Potassium 4.7 D Chloride 108 H Carbon Dioxide 28.1 Anion Gap 10 BUN 24 H Creatinine 3.4 H Estim Creat Clear Calc Not Performed. eGFR 19 L BUN/Creatinine Ratio 7 L Glucose [address] Glu mg/dL Hemoglobin A1c Calculated Osmolality 299 H Lactic Acid 2.0 Calcium 9.2 Corrected Calcium 9.2 Phosphorus 5.2 H Total Bilirubin AST ALT Alkaline Phosphatase Total Creatine Kinase Troponin I 2.891 H* D Total Protein Albumin 4.1 D Globulin Albumin/Globulin Ratio Triglycerides Cholesterol LDL Cholesterol, Calc HDL Cholesterol Cholesterol/HDL Ratio TSH Free T4 U Random Total Protein Urine Opiates Screen Positive A Urine Fentanyl Screen Negative Ur Barbiturates Screen Negative U Amphetamin/Meth Scrn Positive A U Benzodiazepines Scrn Negative U Cocaine Metab Screen Negative U Marijuana (THC) Screen Negative 06/01/25 06/02/25 06/02/25 20:31 04:35 09:20 WBC 26.2 H RBC 5.14 Hgb 14.3 Hct 46.4 MCV 90 MCH 27.8 MCHC 30.8 L RDW Std Deviation 47.0 H Plt Count 302 D Neut % (Auto) 85 H Lymph % (Auto) 5 L Ashley % (Auto) 9 Eos % (Auto) 0 Baso % (Auto) 0 Neut # (Auto) 22.4 H Lymph # (Auto) 1.2 Ashley # (Auto) 2.4 H Eos # (Auto) 0.0 Baso # (Auto) 0.1 Immature Gran # (Auto) 0.14 H Absolute Nucleated RBC 0.00 Immature Gran % 1 H Nucleated RBC % 0 Puncture Site Left Brachial ABG pH 7.31 L ABG pCO2 53 H ABG pO2 95 D ABG HCO3 26 ABG O2 Saturation 98 ABG Base Excess -1 VBG pH VBG pCO2 VBG pO2 VBG O2 Sat (Elsa) VBG Base Excess FiO2 55 Sodium 146 H Potassium 5.4 H D Chloride 108 H Carbon Dioxide 27.5 Anion Gap 11 BUN 30 H Creatinine 3.2 H Estim Creat Clear Calc Not Performed. eGFR 21 L BUN/Creatinine Ratio 9 L Glucose [address] Glu mg/dL 126 Hemoglobin A1c 6.0 Calculated Osmolality 298 H Lactic Acid Calcium 8.7 Corrected Calcium 8.7 Phosphorus Total Bilirubin 0.5 AST 54 H ALT 38 Alkaline Phosphatase 119 H Total Creatine Kinase 556 H D Troponin I 4.285 H* D 3.345 H* D Total Protein 6.0 Albumin 4.0 Globulin 2.0 L Albumin/Globulin Ratio 2.0 Triglycerides 99 Cholesterol 79 L LDL Cholesterol, Calc 32 HDL Cholesterol 27 L Cholesterol/HDL Ratio 2.9 L TSH 0.44 L Free T4 0.92 U Random Total Protein Urine Opiates Screen Urine Fentanyl Screen Ur Barbiturates Screen U Amphetamin/Meth Scrn U Benzodiazepines Scrn U Cocaine Metab Screen U Marijuana (THC) Screen 06/02/25 09:36 WBC RBC Hgb Hct MCV MCH MCHC RDW Std Deviation Plt Count Neut % (Auto) Lymph % (Auto) Ashley % (Auto) Eos % (Auto) Baso % (Auto) Neut # (Auto) Lymph # (Auto) Ashley # (Auto) Eos # (Auto) Baso # (Auto) Immature Gran # (Auto) Absolute Nucleated RBC Immature Gran % Nucleated RBC % Puncture Site ABG pH ABG pCO2 ABG pO2 ABG HCO3 ABG O2 Saturation ABG Base Excess VBG pH VBG pCO2 VBG pO2 VBG O2 Sat (Elsa) VBG Base Excess FiO2 Sodium Potassium Chloride Carbon Dioxide Anion Gap BUN Creatinine Estim Creat Clear Calc eGFR BUN/Creatinine Ratio Glucose Estimated Ave Glu mg/dL Hemoglobin A1c Calculated Osmolality Lactic Acid Calcium Corrected Calcium Phosphorus Total Bilirubin AST ALT Alkaline Phosphatase Total Creatine Kinase Troponin I Total Protein Albumin Globulin Albumin/Globulin Ratio Triglycerides Cholesterol LDL Cholesterol, Calc HDL Cholesterol Cholesterol/HDL Ratio TSH Free T4 U Random Total Protein 165 H Urine Opiates Screen Urine Fentanyl Screen Ur Barbiturates Screen U Amphetamin/Meth Scrn U Benzodiazepines Scrn U Cocaine Metab Screen U Marijuana (THC) Screen ABG Interpretation ABG results: 06/01/25 06/01/25 06/01/25 09:46 10:08 14:16 ABG pH 7.23 L ABG pCO2 61 H ABG pO2 57 L* ABG HCO3 26 ABG O2 Saturation 87 L ABG Base Excess -3 VBG pH 7.26 L 7.29 L VBG pCO2 50 54 VBG pO2 45 75 H D VBG Base Excess -5 L -2 06/02/25 09:20 ABG pH 7.31 L ABG pCO2 53 H ABG pO2 95 D ABG HCO3 26 ABG O2 Saturation 98 ABG Base Excess -1 VBG pH VBG pCO2 VBG pO2 VBG Base Excess Quality Measures Quality Measures VTE prophylaxis Advance care planning discussed with:: patient and spouse Assessment & Plan Assessment Current Active Medications: Generic Name Dose Route Start Last Admin Trade Name Freq PRN Reason Stop Dose Admin Acetaminophen 650 mg 06/01/25 12:12 Acetaminophen 325 Mg Tablet PO 07/01/25 12:11 Q6H PRN Fever >101.4 Albuterol/Ipratropium 3 ml 06/01/25 12:12 Albuterol/Ipratropium (Duoneb) Rt Caridad 3 Ml Nebu INH 07/01/25 12:11 Q6HR PRN SHORTNESS OF BREATH OR WHEEZE Dextrose 25 ml 06/01/25 10:57 Dextrose 50%-Water Inj 50 Ml Syringe IV 07/01/25 10:56 Q15MIN PRN BG 50-70 responsive npo pt Dextrose 50 ml 06/01/25 10:57 Dextrose 50%-Water Inj 50 Ml Syringe IV 07/01/25 10:56 Q15MIN PRN BG <50 OR BG <70 & pt unresponsive Glucagon 1 mg 06/01/25 10:57 Glucagon Inj 1 Mg Vial IM Q15MIN PRN BG <70, and no IV access Heparin Sodium (Porcine) 5,000 unit 06/01/25 21:00 06/02/25 08:10 Heparin Sod Inj 5000 Unit/Ml Vial SC 06/15/25 20:59 5,000 unit Q12HR GERMAN Administration Ceftriaxone Sodium/Dextrose 1 gm in 50 mls @ 100 mls/hr 06/01/25 12:17 06/02/25 08:11 Rocephin/D5w 1gm Iv Premix IV 06/06/25 12:16 100 mls/hr QDAY GERMAN Administration Azithromycin 500 mg/ Sodium 250 mls @ 250 mls/hr 06/02/25 09:00 06/02/25 08:11 Chloride IV 06/04/25 09:59 250 mls/hr QDAY GERMAN Administration Lactated Ringer's 1,000 mls @ 125 mls/hr 06/02/25 08:00 06/02/25 09:20 Lactated Ringers IV 06/02/25 15:59 125 mls/hr .Q8H ONE Administration Ondansetron HCl 4 mg 06/01/25 09:28 Ondansetron Inj 2 Mg/Ml Inj 2 Ml IVP 07/01/25 09:27 Q4HR PRN NAUSEA OR VOMITING Pantoprazole Sodium 40 mg 06/02/25 09:00 06/02/25 08:10 Pantoprazole Inj 40 Mg Vial IVP 07/02/25 08:59 40 mg QDAY GERMAN Administration Sennosides 1 tab 06/02/25 09:00 06/02/25 09:20 Senna Tablet PO 07/02/25 08:59 1 tab QDAY GERMAN Administration Protocol Plan Mr. Lizarraga is a 65-year-old male with a past medical history of chronic back pain with subcutaneous infusion pump, depression/anxiety, GERD, migraines, sleep apnea, HLD, and on testosterone replacement therapy who presented to [facility] ED on 06/01 for altered mental status. The patient was admitted for management of DIXON and sepsis. #Acute encephalopathy #Acute hypoxic hypercapnic respiratory failure #Sepsis 2/2 #Commune acquired pneumonia #Lactic acidosis, resolved #Leukocytosis Patient presented with O2 sat of 88% on room air. In ED, it was noted that the patient had a blood pressure of 80/50, heart rate 107, respiratory rate 24, and WBC 26. Patient remains afebrile throughout ED course and family at bedside does not know any fevers, however patient was noted to be sweating the day before and the morning before coming to the ED. Additionally, patient was noted to have lactic acid of 4.2, which supports a picture of sepsis. Given the decreased O2 saturation, it is likely a community-acquired pneumonia, however CXR in the ED is negative. ABG was performed in ED, which showed elevated pCO2, so patient was started on BiPAP for CO2 retention. SIRS score 3 Diagnostic: Repeat lactic acid 06/01 is 2.0 Plan: Ceftriaxone 1 g daily (06/01 - 06/06) Azithromycin 500 mg daily (06/01 - 06/03) Continue BiPAP, wean off tolerated DuoNebs 3 mL inhaled every 6 hour as needed #DIXON, likely prerenal #CKD Patient noted to have been working out in the sun day before admission. On admission, the patient was noted to have creatinine of 3.7, which is increased from his baseline of 1.3. While patient is noted to have decent oral intake per family, his DIXON is most likely secondary to poor oral intake prior to being admitted. In ED, nephrology was consulted, who recommended continuing with IV fluid hydration. Diagnostic: Renal ultrasound ordered 06/01, shows multiple nonobstructing left renal calculi and moderate bilateral renal parenchyma scar formation, supportive of CKD Rx: 1 L LR 06/01 1 L NS 06/01 1 L LR 06/02 Plan: Nephrology consulted, appreciate recommendations Avoid nephrotoxic drugs, renally dose medications Ordered urine electrolytes, creatinine, and total protein, pending #NSTEMI, type I versus type II #Elevated troponins #Methamphetamine use Patient does not have any chest pain and EKG negative for ST elevations, however patient was noted to have troponin of 1.973 in the ED. In ED, case was discussed with cardiology, who did not recommend heparin drip at that time. 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 Patient received one-time dose of aspirin 325 mg in ED. Diagnostic: Repeat troponin 06/01 12:54 shows troponin 2.891 Troponin peaked at 4.285 on 06/01, decreased to 3.345 on 06/02 Urine toxicology positive for opiates and methamphetamine Plan: Continue to trend troponin Cardiology consulted, appreciate recommendations Echocardiogram ordered, pending #Urinary retention Attempted to place Bertrand catheter in patient as patient was noted to have 392 cc of volume in bladder on renal ultrasound. Was not able to successfully place catheter in initially in ED. Bladder scan a few hours later showed 562 cc of urine in bladder. Attempted additional attempts, but was unsuccessful. This may potentially be contributing to the altered mentation that was noted prior to coming to ED. Rx: Suprapubic catheter placed 06/01 Plan: Consulted urology, appreciate recommendations #Hyperkalemia Patient noted to have potassium of 6.7 in ED. Patient given Kayexalate 30 mg p.o., albuterol 10 mg inhaled, and 10 units of insulin with 500 of D50 for management of hyperkalemia in ED Diagnostic: Repeat renal panel 09/14 12:54 shows potassium 4.7 Plan: Continue to monitor, will treat with hyperkalemia protocol if necessary #GERD Patient endorses a history of GERD and takes pantoprazole at home according to family. Plan: Protonix 40 mg twice daily GERD diet #Chronic pain s/p subcutaneous pump Patient is noted to have chronic pain that is managed with a subcutaneous pump that delivers morphine. This is likely for his back pain given 2 previous surgeries. Plan: Will continue to monitor, manage with pain medication as necessary #Depression #Anxiety Patient is noted to have a history of depression/anxiety. Per outside pharmacy data, patient appears to take escitalopram and olanzapine. Plan: Pending med rec Given altered mental status on admission, will hold medications for now #Testosterone supplementation Per patient's family and outside pharmacy data, patient is on testosterone supplementation. It is not entirely clear as to why. Plan: Patient to follow-up outpatient DVT Prophylaxis: Heparin GI Prophylaxis: Protonix Bowel: Senna Diet: GERD & cardiac Bertrand: N/A Lines: Peripheral IV Antibiotics: Ceftriaxone (06/01-06/06) & Azithromycin (06/01-06/03) Code Status: FULL Reason for Hospitalization: DIXON and sepsis Other Barriers to Discharge: Urology consult Patient plan of care was discussed with attending physician Dr. Wagner and senior resident Dr. Casas (PGY-2) Rikki Alonzo, PGY1 Attending Provider Attestation/Addendum I attest that I was physically present for the evaluation, physical examination, lab and imaging review of the patient with the residents. I discussed the case with the residents and agree with the findings and plans of care as documented above. Patient seen and evaluated at bedside this morning. Appears alert and comfortable but confused. Pupils remain constricted but improved compared to yesterday and reactive to light. Transition from BiPAP to nasal cannula saturating well on 3 L. WBC count noted to be 26.2 compared to 26 yesterday, continues to be on IV antibiotics. Yesterday evening, patient had urinary retention, Bertrand catheter including coud? catheter were attempted but unsuccessful and were traumatic. Suprapubic catheter was later on placed by ED attending. Urology contacted, agrees to see the patient. Potassium level noted to be 5.4 this morning, troponin peaked at 4.285. EKG shows incomplete right bundle branch block but no ST elevation. Cardiology following closely, appreciate recommendations. Nephrology on board, recommended continuation of IV fluids, appreciate recommendations. Kidney function has improved compared to yesterday creatinine of 3.2 today. Awaiting cultures, echocardiogram. Estevan Wagner MD
[2025-06-02 12:06] LABS: Chloride,Urine Random 49.4 mMol/L (55.0-125.0); Creatinine,Random Urine > 245 mg/dL (30-125); Potassium,Urine Random 85 mMol/L (12-62); Sodium,Urine Random 27.5 mMol/L (20.0-110.0)
[2025-06-02 13:10] LABS: Albumin, Serum 4.1 gm/dL (3.4-4.8); Anion Gap 9 (7-16); BUN/Creatinine Ratio 15 Ratio (12-20); Blood Urea Nitrogen 41 mg/dL (9-23); Calcium 8.7 mg/dL (8.3-10.6); Calcium (Corrected) 8.7 mg/dL (8.5-10.1); Carbon Dioxide 29.3 mMol/L (20.0-31.0); Chloride 109 mMol/L (98-107); Creatinine (Component) 2.8 mg/dL (0.6-1.3); Glucose 131 mg/dL (74-106); Osmolality,Calculated 304 (275-295); Phosphorous 2.5 mg/dL (2.4-5.1); Potassium 4.6 mMol/L (3.4-5.1); Sodium 147 mMol/L (136-145); eGFR 24 See Note
[2025-06-02] MEDS: ESCITALOPRAM OXALATE 10 MG TABLET PO (14:50)
--- NOTE | 2025-06-02 16:26 | PC.SS ---
SS met with patient regarding d/c plan. Pt is alert/oriented. Pt was admitted for DIXON. Pt confirmed demographic and contact information is correct on facesheet. Pt resides with . Pt ambulates independently without assistance or DME. Pt is ok with all ADLs. Pt does not utilize O2 at home. Pt is currently on 2 liters of O2. Patient?s pharmacy of choice is [facility] [address]. Pt named his , Angy Lizarraga medical decision maker if he is unable. SS provided verbal options for d/c to home or SNF. Patient?s choice is to return home upon d/c. will provide transportation home. D/C plan: Return home Next of Kin: Angy Amador, , phone# [phone] PCP: Dr. Kyle Scanlon from [facility] Address: [id number] [facility]
--- NOTE | 2025-06-02 18:49 | XR_ITS ---
Examination: Venous duplex lower extremity sonogram, bilateral. Date and time of exam: June 02, 2025 1856 hrs. Indications: Reduced pulses in the legs with pain this week Technique: Multiple sonographic images of the deep venous system have been obtained. B-mode/2-D grayscale imaging of vascular structures and Doppler spectral analysis (waveforms) and color performed Both legs are examined. Findings: Deep venous systems do not demonstrate abnormal echogenicity. All visualized deep veins exhibit compressibility. All visualized deep veins exhibit augmentation. Impression: Negative for deep vein thrombosis
--- NOTE | 2025-06-02 18:50 | XR_ITS ---
Examination: Pulmonary perfusion ventilatory scan Date and time: June 03, 2025 0828 hours INDICATIONS: Chest pain shortness of breath, months, history sleep apnea, elevated troponins TECHNIQUE AND FINDINGS: Perfusion study 4.3 mCi technetium 99m macroaggregated albumin IV Ventilatory scan 44 mCi technetium 99m DTPA aerosol Matching anterior posterior oblique lateral images Heterogeneous ventilation Reasonably homogeneous perfusion No pulmonary perfusion ventilatory defects IMPRESSION: Negative for pulmonary artery emboli
[2025-06-02 19:51] LABS: Partial Thromboplastin Time 24.2 Seconds (22.0-36.0)
[2025-06-02] MEDS: HEPARIN SOD INJ 5000 UNIT/ML VIAL 8000 UNIT IV (20:11)
[2025-06-02] MEDS: ASPIRIN EC 81 MG TABEC PO (20:12)
[2025-06-02] MEDS: Heparin/D5w 25K 250 ML Ivpb 25,000 UNIT/250 ML BAG 18.002 UNIT IV (20:13)
--- NOTE | 2025-06-02 22:19 | ESPR_ITS ---
<Statement entered by Janette Carter MD - 06/07/25 14:33> I personally examined evaluated the patient with resident physician PGY 2 Dr. Woods patient is doing clinically well improved did not have any further episode of chest pain shortness breath troponin levels came down white count is also improving. Clinically doing a lot better since admission we will monitor the patient closely and the patient be stable prior to discharge will consider coronary angiogram.. He was also concerned about shortness of breath pulmonary embolism which was ruled out. Documentation for date of: 06/02/25 Subjective Subjective Interval history: Patient seen today at the bedside found awake, alert, orientedx3 significant improvment compared to when seen on arrival. No overnight events reported. Currently off Bipap on NC however patient is still hypoxic and tachycardic. Patient denies any chest pressure, or anginal symptoms, troponins did go up as high as 4.28, however already downtrending to 3.3 doubt NE at this time, previous angiogram reviewed, coronarys appear to be clean, some plaque noted but no blockages. When speaking to the family, they state patient is mostly sedentary, stays in bed all the time due to his chronic back pain, reviewed echo shows some evidence of right ventricular enlargement, possible strain clinical suspicion for PE still in differential, will start empiric heparin drip and ordered US of bilateral lower extremities, V/Q scan ordered as patient kidney fx not great. Exam Vital Signs Temp Pulse Resp BP Pulse Ox O2 Del Method O2 Flow Rate 99.4 F 106 H 18 135/80 H 95 Nasal Cannula 4 06/02/25 20:00 06/02/25 20:00 06/02/25 20:00 06/02/25 20:00 06/02/25 20:06/02/25 20:06/02/25 20:00 FiO2 45 06/02/25 09:59 Narrative Exam Physical Exam GENERAL: NAD, HEENT: dry mucosa. Eyes open, symmetrical, pin-point CARDIO: Heart RRR, no obvious murmurs PULM: No noted coughing/dyspnea CTA B/L, no R/W/R GI: Abdomen soft, nondistended, no pain on palpation. BSx4 SKIN/MSK/EXT: No wounds/rashes/edema/amputations, no pain on palpation. cold LE bilaterally diminished dorsalis pedis NEURO: AAOx3, no focal neuro deficits, able to move all 4 extremities Objective Labs 06/02/25 04:35 06/02/25 12:40 Labs: Laboratory Results - last 24 hr 06/02/25 06/02/25 06/02/25 04:35 09:20 09:36 WBC 26.2 H RBC 5.14 Hgb 14.3 Hct 46.4 MCV 90 MCH 27.8 MCHC 30.8 L RDW Std Deviation 47.0 H Plt Count 302 D Neut % (Auto) 85 H Lymph % (Auto) 5 L [place] % (Auto) 9 Eos % (Auto) 0 Baso % (Auto) 0 Neut # (Auto) 22.4 H Lymph # (Auto) 1.2 [place] # (Auto) 2.4 H Eos # (Auto) 0.0 Baso # (Auto) 0.1 Immature Gran # (Auto) 0.14 H Absolute Nucleated RBC 0.00 Immature Gran % 1 H Nucleated RBC % 0 APTT Puncture Site Left Brachial ABG pH 7.31 L ABG pCO2 53 H ABG pO2 95 D ABG HCO3 26 ABG O2 Saturation 98 ABG Base Excess -1 FiO2 55 Sodium 146 H Potassium 5.4 H D Chloride 108 H Carbon Dioxide 27.5 Anion Gap 11 BUN 30 H Creatinine 3.2 H Estim Creat Clear Calc Not Performed. eGFR 21 L BUN/Creatinine Ratio 9 L Glucose [address] Glu mg/dL 126 Hemoglobin A1c 6.0 Calculated Osmolality 298 H Calcium 8.7 Corrected Calcium 8.7 Phosphorus Total Bilirubin 0.5 AST 54 H ALT 38 Alkaline Phosphatase 119 H Total Creatine Kinase 556 H D Troponin I 3.345 H* D Total Protein 6.0 Albumin 4.0 Globulin 2.0 L Albumin/Globulin Ratio 2.0 Triglycerides 99 Cholesterol 79 L LDL Cholesterol, Calc 32 HDL Cholesterol 27 L Cholesterol/HDL Ratio 2.9 L TSH 0.44 L Free T4 0.92 Ur Random Creatinine > 245 H U Random Total Protein 165 H Ur Random Sodium 27.5 Ur Random Potassium 85 H Ur Random Chloride 49.4 L 06/02/25 06/02/25 12:40 19:27 WBC RBC Hgb Hct MCV MCH MCHC RDW Std Deviation Plt Count Neut % (Auto) Lymph % (Auto) [place] % (Auto) Eos % (Auto) Baso % (Auto) Neut # (Auto) Lymph # (Auto) [place] # (Auto) Eos # (Auto) Baso # (Auto) Immature Gran # (Auto) Absolute Nucleated RBC Immature Gran % Nucleated RBC % APTT 24.2 Puncture Site ABG pH ABG pCO2 ABG pO2 ABG HCO3 ABG O2 Saturation ABG Base Excess FiO2 Sodium 147 H Potassium 4.6 D Chloride 109 H Carbon Dioxide 29.3 Anion Gap 9 BUN 41 H Creatinine 2.8 H Estim Creat Clear Calc Not Performed. eGFR 24 L BUN/Creatinine Ratio 15 [address]ucose [address] Glu mg/dL Hemoglobin A1c Calculated Osmolality 304 H Calcium 8.7 Corrected Calcium 8.7 Phosphorus 2.5 Total Bilirubin AST ALT Alkaline Phosphatase Total Creatine Kinase Troponin I Total Protein Albumin 4.1 Globulin Albumin/Globulin Ratio Triglycerides Cholesterol LDL Cholesterol, Calc HDL Cholesterol Cholesterol/HDL Ratio TSH Free T4 Ur Random Creatinine U Random Total Protein Ur Random Sodium Ur Random Potassium Ur Random Chloride ABG Interpretation ABG results: 06/01/25 06/01/25 06/01/25 09:46 10:08 14:16 ABG pH 7.23 L ABG pCO2 61 H ABG pO2 57 L* ABG HCO3 26 ABG O2 Saturation 87 L ABG Base Excess -3 VBG pH 7.26 L 7.29 L VBG pCO2 50 54 VBG pO2 45 75 H D VBG Base Excess -5 L -2 06/02/25 09:20 ABG pH 7.31 L ABG pCO2 53 H ABG pO2 95 D ABG HCO3 26 ABG O2 Saturation 98 ABG Base Excess -1 VBG pH VBG pCO2 VBG pO2 VBG Base Excess Quality Measures Quality Measures VTE prophylaxis Advance care planning discussed with:: patient Assessment & Plan Assessment Current Active Medications: Generic Name Dose Route Start Last Admin Trade Name Freq PRN Reason Stop Dose Admin Acetaminophen 650 mg 06/01/25 12:12 Acetaminophen 325 Mg Tablet PO 07/01/25 12:11 Q6H PRN Fever >101.4 Albuterol/Ipratropium 3 ml 06/01/25 12:12 Albuterol/Ipratropium (Duoneb) Rt Caridad 3 Ml Nebu INH 07/01/25 12:11 Q6HR PRN SHORTNESS OF BREATH OR WHEEZE Aspirin 81 mg 06/02/25 19:00 06/02/25 20:12 Aspirin Ec 81 Mg Tabec PO 07/02/25 18:59 81 mg QDAY GERMAN Administration Dextrose 25 ml 06/01/25 10:57 Dextrose 50%-Water Inj 50 Ml Syringe IV 07/01/25 10:56 Q15MIN PRN BG 50-70 responsive npo pt Dextrose 50 ml 06/01/25 10:57 Dextrose 50%-Water Inj 50 Ml Syringe IV 07/01/25 10:56 Q15MIN PRN BG <50 OR BG <70 & pt unresponsive Escitalopram Oxalate 10 mg 06/02/25 13:15 06/02/25 14:50 Escitalopram Oxalate 10 Mg Tablet PO 07/02/25 13:14 10 mg QDAY [facility]ER[facility] Administration Glucagon 1 mg 06/01/25 10:57 Glucagon Inj 1 Mg Vial IM Q15MIN PRN BG <70, and no IV access Ceftriaxone Sodium/Dextrose 1 gm in 50 mls @ 100 mls/hr 06/01/25 12:17 06/02/25 19:21 Rocephin/D5w 1gm Iv Premix IV 06/06/25 12:16 Infused QDAY GER[facility] Infusion Azithromycin 500 mg/ Sodium 250 mls @ 250 mls/hr 06/02/25 09:00 06/02/25 19:21 Chloride IV 06/04/25 09:59 Infused QDAY [facility]ER[facility] Infusion Lactated Ringer's 1,000 mls @ 125 mls/hr 06/02/25 18:24 06/02/25 18:47 Lactated Ringers IV 07/02/25 18:23 125 mls/hr .Q8H GERMAN Administration Heparin Sodium/Dextrose 25,000 unit in 250 mls @ 18.002 mls/hr 06/02/25 19:00 06/02/25 20:13 Heparin In D5w Ivpb IV 06/16/25 18:59 16.4 units/kg/hr .[id number] GERMAN 18.002 mls/hr Protocol Administration 16.4 UNITS/KG/HR Olanzapine 5 mg 06/02/25 21:00 06/02/25 20:12 Olanzapine 5 Mg Tablet PO 07/02/25 20:59 5 mg HS GERMAN Administration Ondansetron HCl 4 mg 06/01/25 09:28 Ondansetron Inj 2 Mg/Ml Inj 2 Ml IVP 07/01/25 09:27 Q4HR PRN NAUSEA OR VOMITING Pantoprazole Sodium 40 mg 06/03/25 09:00 Pantoprazole 40 Mg Tablet PO 07/03/25 08:59 QDAY [facility] Sennosides 1 tab 06/02/25 09:00 06/02/25 09:20 Senna Tablet PO 07/02/25 08:59 1 tab QDAY [facility] Administration Protocol Plan 65-year-old male with past medical history of sleep apnea, hyperlipidemia, low testosterone on TRT, chronic back pain on morphine pump, GERD, depression and anxiety who presented to the ED due to altered mental status. Admitted for sepsis, dixon, elevated troponins. Cardiology consulted. #NSTEMI, likely type II #?Pulmonary embolism Patient denies chest pain or pressure time. Currently on Bipap EKG shows no acute ST elevations Troponin is elevated at 1.9, likely secondary to underlying sepsis Patient had previous cardiac work up with [employer] in [place], including angiogram all which were negative. Reviewed angiogram shows some plaque but no blockages. Echo reviewed showed some evidence of right ventricular enlargement possible strain, given this and continued tachycardia and hypoxia will start heparin drip. Wells score:3; moderate risk for PE; sedentary and heart rate > 100 ? Started heparin drip ? Aspirin 81mg qday ? F/u V/Q scan and US B/L LE ? Treat underlying sepsis #DIXON, likely prerenal #Hyperkalemia #GERD #Chronic pain s/p subcutaneous pump #Depression #Anxiety ?As per primary team Case discussed with my attending Dr. Raul Woods MD PGY-2 Disclaimer: Despite multiple revisions, due to the dictation software being used, the document bellow may not be free of grammatical errors including phonetic/typographic errors. However, this does not deter from our commitment to providing health care in the patient's best interest in mind.
[2025-06-03] VITALS (11 sets, daily range): BP systolic 133–156; BP diastolic 73–92; PULSE 81–96; RESP 12–24; TEMP 36.1–36.7; O2SAT 95–100; BMI 27.9
[2025-06-03] MEDS: RINGERS LACTATED 1000 ML 1,000 ML 125 ML IV (02:37)
[2025-06-03 02:56] LABS: Partial Thromboplastin Time 62.9 Seconds (22.0-36.0)
[2025-06-03 05:18] LABS: Basophils # (Auto) 0.1 Thou/mm3 (0.0-0.2); Basophils % (Auto) 0 % (0-2.5); Eosinophils # (Auto) 0.0 Thou/mm3 (0.0-0.5); Eosinophils % (Auto) 0 % (0-10); Hematocrit 43.6 % (41.0-53.0); Hemoglobin 13.4 g/dL (13.5-16.0); Immature Granulocytes Auto 0.12 Thou/mm3 (0.00-0.00); Lymphocytes # (Auto) 2.0 Thou/mm3 (1.0-4.8); Lymphocytes % (Auto) 9 % (10-50); Mean Corpuscular HGB Conc 30.7 g/dl (31.0-37.0); Mean Corpuscular Hemoglobin 27.9 pg (25.0-35.0); Mean Corpuscular Volume 91 fL (80-100); Monocytes # (Auto) 2.2 Thou/mm3 (0.0-0.8); Monocytes % (Auto) 10 % (0-12); Neutrophils # (Auto) 19.2 Thou/mm3 (1.8-7.7); Neutrophils % (Auto) 81 % (37-80); Nucleated Red Blood Cell # 0.00 Thou/mm3 (0.00-0.00); Nucleated Red Blood Cell % 0 /100 WBC (0); Platelet Count 258 Thou/mm3 (140-440); RDW Standard Deviation 47.5 fL (35.1-43.9); Red Blood Count 4.80 Miln/mm3 (4.50-5.90); White Blood Count 23.7 Thou/mm3 (3.8-10.6)
[2025-06-03 06:04] LABS: Alanine Aminotransferase 38 U/L (10-49); Albumin, Serum 3.8 gm/dL (3.4-4.8); Albumin/Globulin Ratio 1.6 (1.2-2.2); Alkaline Phosphatase 122 U/L (46-116); Anion Gap 9 (7-16); Aspartate Amino Transferase 42 U/L (0-34); BUN/Creatinine Ratio 15 Ratio (12-20); Bilirubin,Total 0.6 mg/dL (0.3-1.2); Blood Urea Nitrogen 29 mg/dL (9-23); Calcium 8.4 mg/dL (8.3-10.6); Calcium (Corrected) 8.6 mg/dL (8.5-10.1); Carbon Dioxide 31.1 mMol/L (20.0-31.0); Chloride 107 mMol/L (98-107); Creatinine (Component) 1.9 mg/dL (0.6-1.3); Estimated Creatinine Clearance 53.4 mL/min (>60); Globulin 2.4 gm/dL (2.3-3.5); Glucose 129 mg/dL (74-106); Osmolality,Calculated 300 (275-295); Potassium 4.4 mMol/L (3.4-5.1); Sodium 147 mMol/L (136-145); Total Protein 6.2 gm/dL (5.7-8.2); eGFR 38 See Note
--- NOTE | 2025-06-03 07:37 | ESPR_ITS ---
Documentation for date of: 06/03/25 Subjective Subjective Interval history: 65-year-old male with a past medical history of chronic back pain with subcutaneous infusion pump, depression/anxiety, GERD, migraines, sleep apnea, HLD, and on testosterone replacement therapy, presented to the hospital on 06/01/2025 due to altered mental staus. Patient was at [facility] at the time, there for most of the history was taken from patient?s . The day before admission, patient was complaining of excessive sweating and had 1 episode of vomiting after breakfast. On 06/01, patient remained unresponsive with pinpoint pupils, therefore, called ambulance. Per ED note, EMS was called and drier operator head that arrived on the scene noted GCS of 10. Patient was then brought to the ED by EMS, and EMS staff did note blood pressure of 80/50, heart rate 102, respiratory rate 20, and pulse ox 91% O2 saturation. After receiving 2 L of fluid bolus and being started on maintenance fluid, patient was noted to have significant improvement of altered mental status. Patient was admitted for DIXON and sepsis. Nephrology has been consulted for management of DIXON. ED course: Initial vitals were significant for blood pressure 80/50, heart rate 107, respiratory rate 24, and O2 saturation 88% on room air. Initial labs were significant for WBC 26.0, potassium 6.7, creatinine 3.7, lactic acid 4.2, troponin 1.973, and BNP 219. ABG showed pH of 7.23, pCO2 61, and pO2 57. VBG showed pH 7.26 and PaO2 77. Labs within normal limits noted to be ammonia and procalcitonin. Urinalysis negative. U tox positive for opiates and methamphetamine. EKG negative for ST elevations. CXR negative for pneumonia, CT head negative for acute processes. Gave patient 1 L LR and 1 L NS. Patient was started on BiPAP given high pCO2. Patient given Kayexalate 30 mg p.o., albuterol 10 mg inhaled, and 10 units of insulin with 500 of D50 for management of hyperkalemia. Consulted nephrology, who recommended continuing IV maintenance fluid and Bertrand catheter insertion. Consulted water inspector, who recommended trending troponins, giving loading dose of aspirin, and deferring heparin drip for now. Past Surgical History: Sternum repair ( for ribs growing inwards , 9 to 15 years old), left rotator cuff repair, back surgery x 2, implantation of pain pump in right lower abdomen (morphine). Current Medication(s): Patient's family is unsure, pending med rec. Allergies (w/ Reactions): Iodine and latex (hives) Family History: Noncontributory Alcohol Intake: Patient denies Tobacco/Vape Use: Patient denies Other Drug Use: Patient denies 06/02/2025: Labs reviewed and patient examined at the bedside. Patient is awake and alert and was able to interact with medical providers. However was on BiPAP. His was beside him and was able to provide us with the history. Placement of Bertrand Catheter has been attempted due to urinary retention, but was unable to do so. Therefore, Suprapubic catheter has been placed. Potassium was high with 5.4. Kayexalate 30mg PO x1 was given. BP:118/72 BUN: 40, Cr:3.2, eGFR:21 06/03/2025: Labs reviewed and patient examined at the bedside. Patient lies comfortable in bed with O2sat 97% on NC 3L. Able to understand and interact with medical providers. Creatinine is downtrending. Great improvment in mental status. Renal US showed multiple nonobstructing left renal calculi and moderate bilateral renal parenchymal scar formation. Patient has no other complaints. Urine Output: 1.1 L BUN: 29, Cr: 1.9, eGFR:38. Exam Vital Signs Temp Pulse Resp BP Pulse Ox O2 Del Method O2 Flow Rate 98.0 F 88 21 H 137/79 H 99 BiPAP 4 06/03/25 04:00 06/03/25 06:33 06/03/25 06:33 06/03/25 04:00 06/03/25 06:33 06/03/25 04:00 06/03/25 00:00 FiO2 40 06/03/25 06:33 Narrative Exam General: well nourished, AAO x3 Eye: normal conjunctiva, no scleral icterus, pinpoint pupil HENT: Normocephalic, atraumatic, hearing intact to conversation at normal volume, moist oral mucosa Neck: Supple, non-tender, no JVD, no lymphadenopathy Lungs: Non-labored respirations, symmetric chest rise, Clear to auscultate bilaterally, No wheezing, rhonchi, crackles Heart: Peripheral pulses intact bilaterally, Regular Rate and Rhythm. Abdomen: Soft, non-tender, non-distended, no palpable masses, Suprapubic catheter placement Musculoskeletal: Normal range of motion and strength, No cyanosis or edema, No visible joint swelling Skin: Skin is warm, dry, no rashes or lesions. Psychiatric: Cooperative, appropriate mood and affect, Awake and alert Neuro: Cranial nerves II-XII grossly intact. Sensations intact to light touch. Objective Labs 06/04/25 04:43 06/03/25 04:37 Labs: Laboratory Results - last 24 hr 06/02/25 06/02/25 06/02/25 04:35 09:20 09:36 WBC RBC Hgb Hct MCV MCH MCHC RDW Std Deviation Plt Count Neut % (Auto) Lymph % (Auto) [place] % (Auto) Eos % (Auto) Baso % (Auto) Neut # (Auto) Lymph # (Auto) [place] # (Auto) Eos # (Auto) Baso # (Auto) Immature Gran # (Auto) Absolute Nucleated RBC Immature Gran % Nucleated RBC % APTT Puncture Site Left Brachial ABG pH 7.31 L ABG pCO2 53 H ABG pO2 95 D ABG HCO3 26 ABG O2 Saturation 98 ABG Base Excess -1 FiO2 55 Sodium Potassium Chloride Carbon Dioxide Anion Gap BUN Creatinine Estim Creat Clear Calc eGFR BUN/Creatinine Ratio Glucose Calculated Osmolality Calcium Corrected Calcium Phosphorus Total Bilirubin AST ALT Alkaline Phosphatase Troponin I 3.345 H* D Total Protein Albumin Globulin Albumin/Globulin Ratio Free T4 0.92 Ur Random Creatinine > 245 H U Random Total Protein 165 H Ur Random Sodium 27.5 Ur Random Potassium 85 H Ur Random Chloride 49.4 L 06/02/25 06/02/25 06/03/25 12:40 19:27 02:18 WBC RBC Hgb Hct MCV MCH MCHC RDW Std Deviation Plt Count Neut % (Auto) Lymph % (Auto) [place] % (Auto) Eos % (Auto) Baso % (Auto) Neut # (Auto) Lymph # (Auto) [place] # (Auto) Eos # (Auto) Baso # (Auto) Immature Gran # (Auto) Absolute Nucleated RBC Immature Gran % Nucleated RBC % APTT 24.2 62.9 H D Puncture Site ABG pH ABG pCO2 ABG pO2 ABG HCO3 ABG O2 Saturation ABG Base Excess FiO2 Sodium 147 H Potassium 4.6 D Chloride 109 H Carbon Dioxide 29.3 Anion Gap 9 BUN 41 H Creatinine 2.8 H Estim Creat Clear Calc Not Performed. eGFR 24 L BUN/Creatinine Ratio 15 Glucose 131 H Calculated Osmolality 304 H Calcium 8.7 Corrected Calcium 8.7 Phosphorus 2.5 Total Bilirubin AST ALT Alkaline Phosphatase Troponin I Total Protein Albumin 4.1 Globulin Albumin/Globulin Ratio Free T4 Ur Random Creatinine U Random Total Protein Ur Random Sodium Ur Random Potassium Ur Random Chloride 06/03/25 04:37 WBC 23.7 H RBC 4.80 Hgb 13.4 L Hct 43.6 MCV 91 MCH 27.9 MCHC 30.7 L RDW Std Deviation 47.5 H Plt Count 258 D Neut % (Auto) 81 H Lymph % (Auto) 9 L [place] % (Auto) 10 Eos % (Auto) 0 Baso % (Auto) 0 Neut # (Auto) 19.2 H Lymph # (Auto) 2.0 [place] # (Auto) 2.2 H Eos # (Auto) 0.0 Baso # (Auto) 0.1 Immature Gran # (Auto) 0.12 H Absolute Nucleated RBC 0.00 Immature Gran % 1 H Nucleated RBC % 0 APTT Puncture Site ABG pH ABG pCO2 ABG pO2 ABG HCO3 ABG O2 Saturation ABG Base Excess FiO2 Sodium 147 H Potassium 4.4 Chloride 107 Carbon Dioxide 31.1 H Anion Gap 9 BUN 29 H Creatinine 1.9 H D Estim Creat Clear Calc 53.4 L eGFR 38 L BUN/Creatinine Ratio 15 Glucose 129 H Calculated Osmolality 300 H Calcium 8.4 Corrected Calcium 8.6 Phosphorus Total Bilirubin 0.6 AST 42 H ALT 38 Alkaline Phosphatase 122 H Troponin I Total Protein 6.2 Albumin 3.8 Globulin 2.4 Albumin/Globulin Ratio 1.6 Free T4 Ur Random Creatinine U Random Total Protein Ur Random Sodium Ur Random Potassium Ur Random Chloride ABG Interpretation ABG results: 06/01/25 06/01/25 06/01/25 09:46 10:08 14:16 ABG pH 7.23 L ABG pCO2 61 H ABG pO2 57 L* ABG HCO3 26 ABG O2 Saturation 87 L ABG Base Excess -3 VBG pH 7.26 L 7.29 L VBG pCO2 50 54 VBG pO2 45 75 H D VBG Base Excess -5 L -2 06/02/25 09:20 ABG pH 7.31 L ABG pCO2 53 H ABG pO2 95 D ABG HCO3 26 ABG O2 Saturation 98 ABG Base Excess -1 VBG pH VBG pCO2 VBG pO2 VBG Base Excess Quality Measures Quality Measures VTE prophylaxis Advance care planning discussed with:: patient and other Assessment & Plan Assessment Current Active Medications: Generic Name Dose Route Start Last Admin Trade Name Freq PRN Reason Stop Dose Admin Acetaminophen 650 mg 06/01/25 12:12 Acetaminophen 325 Mg Tablet PO 07/01/25 12:11 Q6H PRN Fever >101.4 Albuterol/Ipratropium 3 ml 06/01/25 12:12 Albuterol/Ipratropium (Duoneb) Rt [place] 3 Ml Nebu INH 07/01/25 12:11 Q6HR PRN SHORTNESS OF BREATH OR WHEEZE Aspirin 81 mg 06/02/25 19:00 06/02/25 20:12 Aspirin Ec 81 Mg Tabec PO 07/02/25 18:59 81 mg QDAY [facility]ER[facility] Administration Dextrose 25 ml 06/01/25 10:57 Dextrose 50%-Water Inj 50 Ml Syringe IV 07/01/25 10:56 Q15MIN PRN BG 50-70 responsive npo pt Dextrose 50 ml 06/01/25 10:57 Dextrose 50%-Water Inj 50 Ml Syringe IV 07/01/25 10:56 Q15MIN PRN BG <50 OR BG <70 & pt unresponsive Escitalopram Oxalate 10 mg 06/02/25 13:15 06/02/25 14:50 Escitalopram Oxalate 10 Mg Tablet PO 07/02/25 13:14 10 mg QDAY GERMAN Administration Glucagon 1 mg 06/01/25 10:57 Glucagon Inj 1 Mg Vial IM Q15MIN PRN BG <70, and no IV access Ceftriaxone Sodium/Dextrose 1 gm in 50 mls @ 100 mls/hr 06/01/25 12:17 06/02/25 19:21 Rocephin/D5w 1gm Iv Premix IV 06/06/25 12:16 Infused QDAY [facility]ER[facility] Infusion Azithromycin 500 mg/ Sodium 250 mls @ 250 mls/hr 06/02/25 09:00 06/02/25 19:21 Chloride IV 06/04/25 09:59 Infused QDAY [facility] Infusion Lactated Ringer's 1,000 mls @ 125 mls/hr 06/02/25 18:24 06/03/25 02:37 Lactated Ringers IV 07/02/25 18:23 125 mls/hr .Q8H GERMAN Administration Heparin Sodium/Dextrose 25,000 unit in 250 mls @ 18.002 mls/hr 06/02/25 19:00 06/03/25 03:00 Heparin In D5w Ivpb IV 06/16/25 18:59 16.4 units/kg/hr .[id number] GERMAN 18.002 mls/hr Protocol Titration 16.4 UNITS/KG/HR Lactated Ringer's 1,000 mls @ 100 mls/hr 06/03/25 07:23 Lactated Ringers IV 06/03/25 17:22 .Q10H ONE Olanzapine 5 mg 06/02/25 21:00 06/02/25 20:12 Olanzapine 5 Mg Tablet PO 07/02/25 20:59 5 mg HS GERMAN Administration Ondansetron HCl 4 mg 06/01/25 09:28 Ondansetron Inj 2 Mg/Ml Inj 2 Ml IVP 07/01/25 09:27 Q4HR PRN NAUSEA OR VOMITING Pantoprazole Sodium 40 mg 06/03/25 09:00 Pantoprazole 40 Mg Tablet PO 07/03/25 08:59 QDAY [facility] Sennosides 1 tab 06/02/25 09:00 06/02/25 09:20 Senna Tablet PO 07/02/25 08:59 1 tab QDAY [facility] Administration Protocol Plan 65-year-old male with a past medical history of chronic back pain with subcutaneous infusion pump, depression/anxiety, GERD, migraines, sleep apnea, HLD, and on testosterone replacement therapy, presented to the hospital on 06/01/2025 due to altered mental status. Patient was admitted for DIXON and sepsis. Nephrology has been consulted for management of DIXON. #DIXON #2/2 pre-renal vs urinary retention -In January 2025, patient's Cr:1.2, eGFR:67 -Upon admission, BP:80/50, BUN 24 , Cr 3.4 (Baseline of 1.2), eGFR 17 -DIXON could be secondary to pre-renal due to hypoperfusion vs post-renal due to urinary retention. -Suprapubic catheter is in place -Currently, Urine Output: 1.1 L BUN: 29, Cr: 1.9, eGFR:38. Plan: -1L IVF LR 100ml/hr -Continue to monitor renal function -Ordered random urine total protein, electrolytes, and creatinine -Avoid nephrotoxins -Renally dose medication #Hyperkalemia-Resolved -High potassium of 4.4 this morning Plan: -Continue to monitor #Acute hypoxic respiratory failure #Acute hypercapnic respiratory failure #Sepsis 2/2 #Commune acquired pneumonia #Lactic acidosis, resolved #Leukocytosis #NSTEMI, type I versus type II #Elevated troponins #Methamphetamine use #GERD #Chronic pain s/p subcutaneous pump #Depression #Anxiety #Testosterone supplementation -Management per Primary Hospitalist team Thank you for allowing us to participate in the care of your patient. Attending Provider Attestation/Addendum Patient seen and examined with resident physician Dr. Davis. Note reviewed, agree with findings and recommendations. Patient currently seen in telemetry. DIXON most likely related to obstructive uropathy superimposed on prerenal azotemia. Patient has suprapubic catheter. Needs urology follow-up as an outpatient. Unable to place Bertrand catheter in the ER. Hyperkalemia improved. Patient has good urine output. at bedside. Creatinine markedly improved. Cardiology on the case for elevated troponin
[2025-06-03] MEDS: RINGERS LACTATED 1000 ML 1,000 ML 100 ML IV (08:16)
[2025-06-03] MEDS: ESCITALOPRAM OXALATE 10 MG TABLET PO (08:17)
[2025-06-03] MEDS: ASPIRIN EC 81 MG TABEC PO (08:17)
[2025-06-03] MEDS: PANTOPRAZOLE 40 MG TABLET PO (08:17)
--- NOTE | 2025-06-03 08:35 | XR_ITS ---
Examination: AP chest single view Technique one AP portable upright chest single view Date and time: June 03, 2025 at 0707 hours, comparison 06/01/2025 INDICATIONS: Chest pain today FINDINGS: Mild enlargement left ventricle. Subsegmental atelectasis at the lung bases. Moderate elevation right hemidiaphragm. No pneumonia or pulmonary edema. Prominent osteopenia IMPRESSION: Subsegmental atelectasis at the lung bases No interval pneumonia or pulmonary edema
[2025-06-03] MEDS: DIAZEPAM INJ 5 MG/ML VIAL 2 ML 1 MG IVP (08:50)
--- NOTE | 2025-06-03 09:24 | ESPR_ITS ---
<Statement entered by Sean Casas MD - 06/03/25 15:27> Patient is seen and examined at bedside. No acute overnight events. On BiPAP overnight. Yesterday, risk consulting treasury director, Dr. Carter noted to have a RV strain and enlargement on echocardiogram for which he suspected pulmonary embolism, started on heparin drip and ordered bilateral venous Doppler and a V/Q perfusion scan in view of ongoing DIXON but both came back negative for pulmonary embolism. Vitals are stable and patient is noted to saturate around 96% on 2 L of oxygen through nasal cannula. On physical examination, patient appears very anxious with decreased movements of the body and eyes. at the bedside endorsed that he appears like this whenever he becomes anxious and had previous history of panic attacks. Labs done this morning showed downtrending WBC 23.7, sodium 147, bicarb 31.1, creatinine 1.9 which is downtrending. Also noted to have a fraction excretion of sodium 0.2% suggesting prerenal etiology. Urologist, Dr. Gautam was consulted in view of acute urinary retention followed by suprapubic catheterization and he recommended that he will proceed with cystoscopy which will be done likely tomorrow. Heparin drip is discontinued in view of negative pulmonary embolism # Acute encephalopathy, resolved, likely metabolic # Acute hypoxic, hypercapnic respiratory failure, resolving # Suspected possible sepsis # Acute kidney injury, likely prerenal, resolving # NSTEMI, likely type II # Hyperkalemia, resolved # Leukocytosis, downtrending # Lactic acidosis, resolved # Acute urinary retention, s/p suprapubic catheterization # History of obstructive sleep apnea # Polypharmacy # Methamphetamine abuse # Chronic back pain on patient control analgesia, morphine pump I have personally seen and examined the patient, agree with residents assessment and plan Patient plan of care was discussed with the attending physician, Dr. Miguel Casas, PGY2 Documentation for date of: 06/03/25 Subjective Subjective Interval history: Overnight events: No acute events overnight. Patient was seen and examined at bedside. AM vitals and labs reviewed. Patient saturating 96% on 2 L O2 nasal cannula. Patient's pupils look less pinpoint today. Patient was started on heparin drip overnight due to cardiology concerns of possible PE due to right ventricular enlargement on echocardiogram, suspicious for right heart strain. The patient was more aware and conversant today. Does still seem very anxious. Is aware of self and year, but unaware of location and reason for hospitalization. Dried blood around suprapubic catheter site. Patient became acutely agitated after being asked if he knows why he is in the hospital. Patient was frustrated as he does not like the hospital, and is unaware of why he is hospitalized. Patient tried to get out of bed without safely complying in light of his suprapubic catheter, requiring some sedation with diazepam to stop him. WBC 23.7, sodium 147, creatinine 1.9, and urine and blood cultures negative. Venous duplex performed yesterday was negative for DVT. Per cardiology, echocardiogram shows an large right ventricle with possible right ventricular strain. PE cannot be ruled out at this time, however drip was ordered and VQ mismatch scan was ordered. Pending V/Q mismatch scan. Chest x-ray ordered per request from radiology team. Continue heparin drip, Rocephin, and azithromycin. Continue to monitor status. Review of systems otherwise negative except for what is mentioned above. Exam Vital Signs Temp Pulse Resp BP Pulse Ox O2 Del Method O2 Flow Rate 97.4 F 88 14 133/79 H 97 Nasal Cannula 3 06/03/25 08:00 06/03/25 08:00 06/03/25 08:00 06/03/25 08:00 06/03/25 08:00 06/03/25 08:00 06/03/25 08:00 FiO2 40 06/03/25 06:33 Narrative Exam Physical Exam: General: Alert, no acute distress. Skin: Warm, dry, intact. Head: Normocephalic, atraumatic. Eye: Normal conjunctiva, PERRL. Cardiovascular: Regular rate and rhythm, no murmur, +S1/S2. Respiratory: Lungs are clear to auscultation, respirations unlabored, no crackles, no wheezing. Gastrointestinal: Soft, nontender, distended. No guarding or rebound tenderness. Extremities: No edema, no cyanosis, no clubbing. Neuro: No focal deficits observed. Conversant, moving all extremities. No overt cerebellar signs/incoordination. Psychiatric: Cooperative, terse affect. : Suprapubic catheter in place with dried blood in region. Objective Labs 06/04/25 04:43 06/04/25 04:43 Labs: Laboratory Results - last 24 hr 06/02/25 06/02/25 06/02/25 04:35 09:20 09:36 WBC RBC Hgb Hct MCV MCH MCHC RDW Std Deviation Plt Count Neut % (Auto) Lymph % (Auto) [place] % (Auto) Eos % (Auto) Baso % (Auto) Neut # (Auto) Lymph # (Auto) [place] # (Auto) Eos # (Auto) Baso # (Auto) Immature Gran # (Auto) Absolute Nucleated RBC Immature Gran % Nucleated RBC % APTT Puncture Site Left Brachial ABG pH 7.31 L ABG pCO2 53 H ABG pO2 95 D ABG HCO3 26 ABG O2 Saturation 98 ABG Base Excess -1 FiO2 55 Sodium Potassium Chloride Carbon Dioxide Anion Gap BUN Creatinine Estim Creat Clear Calc eGFR BUN/Creatinine Ratio Glucose Calculated Osmolality Calcium Corrected Calcium Phosphorus Total Bilirubin AST ALT Alkaline Phosphatase Total Protein Albumin Globulin Albumin/Globulin Ratio Free T4 0.92 Ur Random Creatinine > 245 H U Random Total Protein 165 H Ur Random Sodium 27.5 Ur Random Potassium 85 H Ur Random Chloride 49.4 L 06/02/25 06/02/25 06/03/25 12:40 19:27 02:18 WBC RBC Hgb Hct MCV MCH MCHC RDW Std Deviation Plt Count Neut % (Auto) Lymph % (Auto) [place] % (Auto) Eos % (Auto) Baso % (Auto) Neut # (Auto) Lymph # (Auto) [place] # (Auto) Eos # (Auto) Baso # (Auto) Immature Gran # (Auto) Absolute Nucleated RBC Immature Gran % Nucleated RBC % APTT 24.2 62.9 H D Puncture Site ABG pH ABG pCO2 ABG pO2 ABG HCO3 ABG O2 Saturation ABG Base Excess FiO2 Sodium 147 H Potassium 4.6 D Chloride 109 H Carbon Dioxide 29.3 Anion Gap 9 BUN 41 H Creatinine 2.8 H Estim Creat Clear Calc Not Performed. eGFR 24 L BUN/Creatinine Ratio 15 Glucose 131 H Calculated Osmolality 304 H Calcium 8.7 Corrected Calcium 8.7 Phosphorus 2.5 Total Bilirubin AST ALT Alkaline Phosphatase Total Protein Albumin 4.1 Globulin Albumin/Globulin Ratio Free T4 Ur Random Creatinine U Random Total Protein Ur Random Sodium Ur Random Potassium Ur Random Chloride 06/03/25 04:37 WBC 23.7 H RBC 4.80 Hgb 13.4 L Hct 43.6 MCV 91 MCH 27.9 MCHC 30.7 L RDW Std Deviation 47.5 H Plt Count 258 D Neut % (Auto) 81 H Lymph % (Auto) 9 L [place] % (Auto) 10 Eos % (Auto) 0 Baso % (Auto) 0 Neut # (Auto) 19.2 H Lymph # (Auto) 2.0 [place] # (Auto) 2.2 H Eos # (Auto) 0.0 Baso # (Auto) 0.1 Immature Gran # (Auto) 0.12 H Absolute Nucleated RBC 0.00 Immature Gran % 1 H Nucleated RBC % 0 APTT Puncture Site ABG pH ABG pCO2 ABG pO2 ABG HCO3 ABG O2 Saturation ABG Base Excess FiO2 Sodium 147 H Potassium 4.4 Chloride 107 Carbon Dioxide 31.1 H Anion Gap 9 BUN 29 H Creatinine 1.9 H D Estim Creat Clear Calc 53.4 L eGFR 38 L BUN/Creatinine Ratio 15 Glucose 129 H Calculated Osmolality 300 H Calcium 8.4 Corrected Calcium 8.6 Phosphorus Total Bilirubin 0.6 AST 42 H ALT 38 Alkaline Phosphatase 122 H Total Protein 6.2 Albumin 3.8 Globulin 2.4 Albumin/Globulin Ratio 1.6 Free T4 Ur Random Creatinine U Random Total Protein Ur Random Sodium Ur Random Potassium Ur Random Chloride ABG Interpretation ABG results: 06/01/25 06/01/25 06/01/25 09:46 10:08 14:16 ABG pH 7.23 L ABG pCO2 61 H ABG pO2 57 L* ABG HCO3 26 ABG O2 Saturation 87 L ABG Base Excess -3 VBG pH 7.26 L 7.29 L VBG pCO2 50 54 VBG pO2 45 75 H D VBG Base Excess -5 L -2 06/02/25 09:20 ABG pH 7.31 L ABG pCO2 53 H ABG pO2 95 D ABG HCO3 26 ABG O2 Saturation 98 ABG Base Excess -1 VBG pH VBG pCO2 VBG pO2 VBG Base Excess Quality Measures Quality Measures VTE prophylaxis Advance care planning discussed with:: patient and spouse Assessment & Plan Assessment Current Active Medications: Generic Name Dose Route Start Last Admin Trade Name Freq PRN Reason Stop Dose Admin Acetaminophen 650 mg 06/01/25 12:12 Acetaminophen 325 Mg Tablet PO 07/01/25 12:11 Q6H PRN Fever >101.4 Albuterol/Ipratropium 3 ml 06/01/25 12:12 Albuterol/Ipratropium (Duoneb) Rt Caridad 3 Ml Nebu INH 07/01/25 12:11 Q6HR PRN SHORTNESS OF BREATH OR WHEEZE Aspirin 81 mg 06/02/25 19:00 06/03/25 08:17 Aspirin Ec 81 Mg Tabec PO 07/02/25 18:59 81 mg QDAY GERMAN Administration Dextrose 25 ml 06/01/25 10:57 Dextrose 50%-Water Inj 50 Ml Syringe IV 07/01/25 10:56 Q15MIN PRN BG 50-70 responsive npo pt Dextrose 50 ml 06/01/25 10:57 Dextrose 50%-Water Inj 50 Ml Syringe IV 07/01/25 10:56 Q15MIN PRN BG <50 OR BG <70 & pt unresponsive Escitalopram Oxalate 10 mg 06/02/25 13:15 06/03/25 08:17 Escitalopram Oxalate 10 Mg Tablet PO 07/02/25 13:14 10 mg QDAY GERMAN Administration Glucagon 1 mg 06/01/25 10:57 Glucagon Inj 1 Mg Vial IM Q15MIN PRN BG <70, and no IV access Ceftriaxone Sodium/Dextrose 1 gm in 50 mls @ 100 mls/hr 06/01/25 12:17 06/02/25 19:21 Rocephin/D5w 1gm Iv Premix IV 06/06/25 12:16 Infused QDAY GERMAN Infusion Azithromycin 500 mg/ Sodium 250 mls @ 250 mls/hr 06/02/25 09:00 06/02/25 19:21 Chloride IV 06/04/25 09:59 Infused QDAY GERMAN Infusion Lactated Ringer's 1,000 mls @ 125 mls/hr 06/02/25 18:24 06/03/25 02:37 Lactated Ringers IV 07/02/25 18:23 125 mls/hr .Q8H GERMAN Administration Heparin Sodium/Dextrose 25,000 unit in 250 mls @ 18.002 mls/hr 06/02/25 19:00 06/03/25 03:00 Heparin In D5w Ivpb IV 06/16/25 18:59 16.4 units/kg/hr .[id number] GERMAN 18.002 mls/hr Protocol Titration 16.4 UNITS/KG/HR Lactated Ringer's 1,000 mls @ 100 mls/hr 06/03/25 07:23 06/03/25 08:16 Lactated Ringers IV 06/03/25 17:22 100 mls/hr .Q10H ONE Administration Olanzapine 5 mg 06/02/25 21:00 06/02/25 20:12 Olanzapine 5 Mg Tablet PO 07/02/25 20:59 5 mg HS GERMAN Administration Ondansetron HCl 4 mg 06/01/25 09:28 Ondansetron Inj 2 Mg/Ml Inj 2 Ml IVP 07/01/25 09:27 Q4HR PRN NAUSEA OR VOMITING Pantoprazole Sodium 40 mg 06/03/25 09:00 06/03/25 08:17 Pantoprazole 40 Mg Tablet PO 07/03/25 08:59 40 mg QDAY GERMAN Administration Sennosides 1 tab 06/02/25 09:00 06/03/25 08:17 Senna Tablet PO 07/02/25 08:59 1 tab QDAY GERMAN Administration Protocol Plan Mr. Lizarraga is a 65-year-old male with a past medical history of chronic back pain with subcutaneous infusion pump, depression/anxiety, GERD, migraines, sleep apnea, HLD, and on testosterone replacement therapy who presented to [facility] ED on 06/01 for altered mental status. The patient was admitted for management of DIXON and sepsis. #Acute encephalopathy #Acute hypoxic hypercapnic respiratory failure #Sepsis 2/2 #Commune acquired pneumonia #Lactic acidosis, resolved #Leukocytosis Patient presented with O2 sat of 88% on room air. In ED, it was noted that the patient had a blood pressure of 80/50, heart rate 107, respiratory rate 24, and WBC 26. Patient remains afebrile throughout ED course and family at bedside does not know any fevers, however patient was noted to be sweating the day before and the morning before coming to the ED. Additionally, patient was noted to have lactic acid of 4.2, which supports a picture of sepsis. Given the decreased O2 saturation, it is likely a community-acquired pneumonia, however CXR in the ED is negative. ABG was performed in ED, which showed elevated pCO2, so patient was started on BiPAP for CO2 retention. SIRS score 3 Diagnostic: Repeat lactic acid 06/01 is 2.0 Plan: Ceftriaxone 1 g daily (06/01 - 06/06) Azithromycin 500 mg daily (06/01 - 06/03) Continue BiPAP, wean off tolerated DuoNebs 3 mL inhaled every 6 hour as needed #NSTEMI, type I versus type II #Elevated troponins #Methamphetamine use #RV enlargement, suspected right heart strain #?PE Patient does not have any chest pain and EKG negative for ST elevations, however patient was noted to have troponin of 1.973 in the ED. In ED, case was discussed with cardiology, who did not recommend heparin drip at that time. Patient is noted to have previous cardiac workup by risk consulting treasury director in [place], including angiogram, all of which were negative per the family. Patient received one-time dose of aspirin 325 mg in ED. Cardiology noted that patient had RV enlargement and possible right heart strain on echo, suspicious for possible PE. Diagnostic: Repeat troponin 06/01 12:54 shows troponin 2.891 Troponin peaked at 4.285 on 06/01, decreased to 3.345 on 06/02 Urine toxicology positive for opiates and methamphetamine Echocardiogram ordered, pending official read, per cardiology shows RV enlargemnt and possible right heart strain Plan: Continue to trend troponin Cardiology consulted, appreciate recommendations Heparin drip V/Q mismatch scan ordered, pending #DIXON, likely prerenal #CKD Patient noted to have been working out in the sun day before admission. On admission, the patient was noted to have creatinine of 3.7, which is increased from his baseline of 1.3. While patient is noted to have decent oral intake per family, his DIXON is most likely secondary to poor oral intake prior to being admitted. In ED, nephrology was consulted, who recommended continuing with IV fluid hydration. Diagnostic: Renal ultrasound ordered 06/01, shows multiple nonobstructing left renal calculi and moderate bilateral renal parenchyma scar formation, supportive of CKD Rx: Multiple liters of LR and NS Diagnostics: Ordered urine electrolytes, creatinine, and total protein, shows urine creatinine over 245, urine protein 165, urine random sodium 27.5, urine random potassium 85, and urine random chloride 49.4 Plan: Nephrology consulted, appreciate recommendations Avoid nephrotoxic drugs, renally dose medications #Urinary retention Attempted to place Bertrand catheter in patient as patient was noted to have 392 cc of volume in bladder on renal ultrasound. Was not able to successfully place catheter in initially in ED. Bladder scan a few hours later showed 562 cc of urine in bladder. Attempted additional attempts, but was unsuccessful. This may potentially be contributing to the altered mentation that was noted prior to coming to ED. Rx: Suprapubic catheter placed 06/01 Plan: Consulted urology, appreciate recommendations #Hyperkalemia Patient noted to have potassium of 6.7 in ED. Patient given Kayexalate 30 mg p.o., albuterol 10 mg inhaled, and 10 units of insulin with 500 of D50 for management of hyperkalemia in ED Diagnostic: Repeat renal panel 06/01 12:54 shows potassium 4.7 Plan: Continue to monitor, will treat with hyperkalemia protocol if necessary #GERD Patient endorses a history of GERD and takes pantoprazole at home according to family. Plan: Protonix 40 mg twice daily GERD diet #Chronic pain s/p subcutaneous pump Patient is noted to have chronic pain that is managed with a subcutaneous pump that delivers morphine. This is likely for his back pain given 2 previous surgeries. Plan: Will continue to monitor, manage with pain medication as necessary #Depression #Anxiety Patient is noted to have a history of depression/anxiety. Per outside pharmacy data, patient appears to take escitalopram and olanzapine. Plan: Pending med rec Given altered mental status on admission, will hold medications for now #Testosterone supplementation Per patient's family and outside pharmacy data, patient is on testosterone supplementation. It is not entirely clear as to why. Plan: Patient to follow-up outpatient DVT Prophylaxis: Heparin GI Prophylaxis: Protonix Bowel: Senna Diet: GERD & cardiac Bertrand: N/A Lines: Peripheral IV Antibiotics: Ceftriaxone (06/01-06/06) & Azithromycin (06/01-06/03) Code Status: FULL Reason for Hospitalization: DIXON and sepsis Other Barriers to Discharge: Urology consult Patient plan of care was discussed with attending physician Dr. Rivera and senior resident Dr. Casas (PGY-2) Rikki Alonzo, PGY1 Attending Provider Attestation/Addendum I have examined the patient, reviewed labs and imaging findings, discussed the case with the resident(s), and reviewed entered orders. I agree with the plan of care as outlined in this note, with these additional summaries/recommendations: Patient seen at bedside. No acute overnight events. Patient continues to be encephalopathic but is improving. Continue IV antibiotics for community- acquired pneumonia. Hold home allergy medicines. In-house nephrology following for DIXON on CKD. DIXON most likely secondary to to prerenal azotemia versus less likely postrenal from acute urinary retention. Continue IV fluids and avoid nephrotoxic agents. Renally dose medications. Patient also diagnosed with NSTEMI most likely type II. No acute ST changes indicative of acute ischemia. There was concern for right heart strain on echocardiogram and high suspicion for pulmonary embolism. He was empirically started on heparin gtt. which we will continue. Target aPTT of 60 to 80 seconds. In house cardiology following, recommendations appreciated. Pending V/Q scan. Continue aspirin 81 mg p.o. daily. Start statin therapy. Patient is status post suprapubic catheter for acute urinary retention. In-house urology following with plans for cystoscopy as soon as tomorrow 06/04. Continue BiPAP/CPAP at night for likely undiagnosed ANA. Patient updated on the plan and in agreement. All questions answered to satisfaction. Please see residents note for additional details and management. Dr. Miguel MD
[2025-06-03] MEDS: cefTRIAXone/D5w 1gm IV premix 1 GM/50 ML BAG IV (09:34)
[2025-06-03] MEDS: AZITHROMYCIN INJ 500 MG in SODIUM CHLORIDE 0.9% 250 ML 250 ML 250 MG IV (09:37)
[2025-06-03 10:22] LABS: Partial Thromboplastin Time 50.3 Seconds (22.0-36.0)
[2025-06-03] MEDS: Heparin/D5w 25K 250 ML Ivpb 25,000 UNIT/250 ML BAG 18.002 UNIT IV (10:29)
--- NOTE | 2025-06-03 12:24 | PC.SS ---
SS provided pt with [facility].
--- NOTE | 2025-06-03 14:27 | PC.PT ---
Patient was leaving to [facility] at 13:07. Patient is being ruled out for pulmonary embolism at this time. Will hold PT eval 2/2 patient has not been on heparin for >24hrs. Will re-attempt PT eval tomorrow for patient safety. RN made aware.
[2025-06-03 15:48] LABS: Partial Thromboplastin Time 46.8 Seconds (22.0-36.0)
--- NOTE | 2025-06-03 17:13 | ESPR_ITS ---
<Statement entered by Janette Carter MD - 06/07/25 14:35> I personally evaluated examined the patient clinically doing much better not having chest pain shortness of breath evaluation resident physician Dr. Woods clinically much better white count is improving does not complain of chest pain or shortness of breath. Since the patient has significant troponin elevation we will consider coronary angiogram will be done in 1 to 2 days. Documentation for date of: 06/03/25 Subjective Subjective Interval history: Patient seen today and evaluated at the bedside. Vitals and labs reviewed. Ultrasound bilateral lower extremities is negative for DVT, VQ scan negative for PE. Discontinued heparin drip. Patient is scheduled to have cystoscopy procedure with urology, patient is cleared from cardiac standpoint. Echo was read showed normal ejection fraction 50 to 55% with mild septal apical hypokinesis, moderately increased right ventricle size normal systolic function. Exam Vital Signs Temp Pulse Resp BP Pulse Ox O2 Del Method O2 Flow Rate 96.9 F 96 18 148/89 H 96 Nasal Cannula 2 06/03/25 12:00 06/03/25 16:00 06/03/25 15:10 06/03/25 12:00 06/03/25 15:10 06/03/25 12:00 06/03/25 15:10 FiO2 40 06/03/25 06:33 Narrative Exam Physical Exam GENERAL: NAD, HEENT: dry mucosa. Eyes open, symmetrical, pin-point CARDIO: Heart RRR, no obvious murmurs PULM: No noted coughing/dyspnea CTA B/L, no R/W/R GI: Abdomen soft, nondistended, no pain on palpation. BSx4 SKIN/MSK/EXT: No wounds/rashes/edema/amputations, no pain on palpation. cold LE bilaterally diminished dorsalis pedis NEURO: AAOx3, no focal neuro deficits, able to move all 4 extremities Objective Labs 06/03/25 04:37 06/03/25 04:37 Labs: Laboratory Results - last 24 hr 06/02/25 06/03/25 06/03/25 19:27 02:18 04:37 WBC 23.7 H RBC 4.80 Hgb 13.4 L Hct 43.6 MCV 91 MCH 27.9 MCHC 30.7 L RDW Std Deviation 47.5 H Plt Count 258 D Neut % (Auto) 81 H Lymph % (Auto) 9 L [place] % (Auto) 10 Eos % (Auto) 0 Baso % (Auto) 0 Neut # (Auto) 19.2 H Lymph # (Auto) 2.0 [place] # (Auto) 2.2 H Eos # (Auto) 0.0 Baso # (Auto) 0.1 Immature Gran # (Auto) 0.12 H Absolute Nucleated RBC 0.00 Immature Gran % 1 H Nucleated RBC % 0 APTT 24.2 62.9 H D Sodium 147 H Potassium 4.4 Chloride 107 Carbon Dioxide 31.1 H Anion Gap 9 BUN 29 H Creatinine 1.9 H D Estim Creat Clear Calc 53.4 L eGFR 38 L BUN/Creatinine Ratio 15 Glucose 129 H Calculated Osmolality 300 H Calcium 8.4 Corrected Calcium 8.6 Total Bilirubin 0.6 AST 42 H ALT 38 Alkaline Phosphatase 122 H Total Protein 6.2 Albumin 3.8 Globulin 2.4 Albumin/Globulin Ratio 1.6 06/03/25 06/03/25 09:00 14:58 WBC RBC Hgb Hct MCV MCH MCHC RDW Std Deviation Plt Count Neut % (Auto) Lymph % (Auto) [place] % (Auto) Eos % (Auto) Baso % (Auto) Neut # (Auto) Lymph # (Auto) [place] # (Auto) Eos # (Auto) Baso # (Auto) Immature Gran # (Auto) Absolute Nucleated RBC Immature Gran % Nucleated RBC % APTT 50.3 H D 46.8 H Sodium Potassium Chloride Carbon Dioxide Anion Gap BUN Creatinine Estim Creat Clear Calc eGFR BUN/Creatinine Ratio Glucose Calculated Osmolality Calcium Corrected Calcium Total Bilirubin AST ALT Alkaline Phosphatase Total Protein Albumin Globulin Albumin/Globulin Ratio ABG Interpretation ABG results: 06/01/25 06/01/25 06/01/25 09:46 10:08 14:16 ABG pH 7.23 L ABG pCO2 61 H ABG pO2 57 L* ABG HCO3 26 ABG O2 Saturation 87 L ABG Base Excess -3 VBG pH 7.26 L 7.29 L VBG pCO2 50 54 VBG pO2 45 75 H D VBG Base Excess -5 L -2 06/02/25 09:20 ABG pH 7.31 L ABG pCO2 53 H ABG pO2 95 D ABG HCO3 26 ABG O2 Saturation 98 ABG Base Excess -1 VBG pH VBG pCO2 VBG pO2 VBG Base Excess Quality Measures Quality Measures VTE prophylaxis Advance care planning discussed with:: patient and spouse Assessment & Plan Assessment Current Active Medications: Generic Name Dose Route Start Last Admin Trade Name Freq PRN Reason Stop Dose Admin Acetaminophen 650 mg 06/01/25 12:12 Acetaminophen 325 Mg Tablet PO 07/01/25 12:11 Q6H PRN Fever >101.4 Albuterol/Ipratropium 3 ml 06/01/25 12:12 Albuterol/Ipratropium (Duoneb) Rt Caridad 3 Ml Nebu INH 07/01/25 12:11 Q6HR PRN SHORTNESS OF BREATH OR WHEEZE Aspirin 81 mg 06/02/25 19:00 06/03/25 08:17 Aspirin Ec 81 Mg Tabec PO 07/02/25 18:59 81 mg QDAY GERMAN Administration Dextrose 25 ml 06/01/25 10:57 Dextrose 50%-Water Inj 50 Ml Syringe IV 07/01/25 10:56 Q15MIN PRN BG 50-70 responsive npo pt Dextrose 50 ml 06/01/25 10:57 Dextrose 50%-Water Inj 50 Ml Syringe IV 07/01/25 10:56 Q15MIN PRN BG <50 OR BG <70 & pt unresponsive Diazepam 2 mg 06/03/25 09:37 Diazepam Inj 5 Mg/Ml Vial 2 Ml IVP X1 PRN Anxiety/agitation before NM scan Escitalopram Oxalate 10 mg 06/02/25 13:15 06/03/25 08:17 Escitalopram Oxalate 10 Mg Tablet PO 07/02/25 13:14 10 mg QDAY GERMAN Administration Glucagon 1 mg 06/01/25 10:57 Glucagon Inj 1 Mg Vial IM Q15MIN PRN BG <70, and no IV access Ceftriaxone Sodium/Dextrose 1 gm in 50 mls @ 100 mls/hr 06/01/25 12:17 06/03/25 09:34 Rocephin/D5w 1gm Iv Premix IV 06/06/25 12:16 100 mls/hr QDAY GERMAN Administration Azithromycin 500 mg/ Sodium 250 mls @ 250 mls/hr 06/02/25 09:00 06/03/25 09:37 Chloride IV 06/04/25 09:59 250 mls/hr QDAY GERMAN Administration Lactated Ringer's 1,000 mls @ 100 mls/hr 06/03/25 07:23 06/03/25 08:16 Lactated Ringers IV 06/03/25 17:22 100 mls/hr .Q10H ONE Administration Olanzapine 5 mg 06/02/25 21:00 06/02/25 20:12 Olanzapine 5 Mg Tablet PO 07/02/25 20:59 5 mg HS GERMAN Administration Ondansetron HCl 4 mg 06/01/25 09:28 Ondansetron Inj 2 Mg/Ml Inj 2 Ml IVP 07/01/25 09:27 Q4HR PRN NAUSEA OR VOMITING Pantoprazole Sodium 40 mg 06/03/25 09:00 06/03/25 08:17 Pantoprazole 40 Mg Tablet PO 07/03/25 08:59 40 mg QDAY GERMAN Administration Sennosides 1 tab 06/02/25 09:00 06/03/25 08:17 Senna Tablet PO 07/02/25 08:59 1 tab QDAY GERMAN Administration Protocol Plan 65-year-old male with past medical history of sleep apnea, hyperlipidemia, low testosterone on TRT, chronic back pain on morphine pump, GERD, depression and anxiety who presented to the ED due to altered mental status. Admitted for sepsis, dixon, elevated troponins. Cardiology consulted. #NSTEMI, likely type II #?Pulmonary embolism Patient denies chest pain or pressure time. Currently on Bipap EKG shows no acute ST elevations Troponin is elevated at 1.9, likely secondary to underlying sepsis Patient had previous cardiac work up with [facility] in [place], including angiogram all which were negative. Reviewed angiogram shows some plaque but no blockages. Wells score:3; moderate risk for PE; sedentary and heart rate > 100 V/Q scan negative for PE, US B/L LE negative for DVT Echo:Normal left ventricle function ejection fraction 50 to 55% with mild septal apical hypokinesis. Grade 1 diastolic dysfunction of the left ventricle. The RV size is moderately increased with normal systolic function. mild mitral regurgitation, mild tricuspid regurgitation with normal PA pressure. ? Patient may require cardiac cath prior to discharge. ? Aspirin 81mg qday ? Treat underlying sepsis #DIXON, likely prerenal #Hyperkalemia #GERD #Chronic pain s/p subcutaneous pump #Depression #Anxiety ?As per primary team Case discussed with my attending Dr. Raul Woods MD PGY-2 Disclaimer: Despite multiple revisions, due to the dictation software being used, the document bellow may not be free of grammatical errors including phonetic/typographic errors. However, this does not deter from our commitment to providing health care in the patient's best interest in mind.
[2025-06-04] VITALS (17 sets, daily range): BP systolic 143–179; BP diastolic 83–104; PULSE 72–101; RESP 12–27; TEMP 36–37.2; O2SAT 91–99; BMI 29.9
[2025-06-04 06:02] LABS: Basophils # (Auto) 0.1 Thou/mm3 (0.0-0.2); Basophils % (Auto) 0 % (0-2.5); Eosinophils # (Auto) 0.1 Thou/mm3 (0.0-0.5); Eosinophils % (Auto) 1 % (0-10); Hematocrit 39.9 % (41.0-53.0); Hemoglobin 12.3 g/dL (13.5-16.0); Immature Granulocytes Auto 0.04 Thou/mm3 (0.00-0.00); Lymphocytes # (Auto) 1.5 Thou/mm3 (1.0-4.8); Lymphocytes % (Auto) 13 % (10-50); Mean Corpuscular HGB Conc 30.8 g/dl (31.0-37.0); Mean Corpuscular Hemoglobin 27.7 pg (25.0-35.0); Mean Corpuscular Volume 90 fL (80-100); Monocytes # (Auto) 1.2 Thou/mm3 (0.0-0.8); Monocytes % (Auto) 10 % (0-12); Neutrophils # (Auto) 8.9 Thou/mm3 (1.8-7.7); Neutrophils % (Auto) 75 % (37-80); Nucleated Red Blood Cell # 0.00 Thou/mm3 (0.00-0.00); Nucleated Red Blood Cell % 0 /100 WBC (0); Platelet Count 258 Thou/mm3 (140-440); RDW Standard Deviation 45.5 fL (35.1-43.9); Red Blood Count 4.44 Miln/mm3 (4.50-5.90); White Blood Count 11.9 Thou/mm3 (3.8-10.6)
[2025-06-04 06:12] LABS: INR 1.0 (0.9-1.3); Partial Thromboplastin Time 25.6 Seconds (22.0-36.0); Prothrombin Time 11.2 Seconds (9.0-12.2)
[2025-06-04 06:48] LABS: Alanine Aminotransferase 33 U/L (10-49); Albumin, Serum 3.4 gm/dL (3.4-4.8); Albumin/Globulin Ratio 1.8 (1.2-2.2); Alkaline Phosphatase 92 U/L (46-116); Anion Gap 7 (7-16); Aspartate Amino Transferase 29 U/L (0-34); BUN/Creatinine Ratio 15 Ratio (12-20); Bilirubin,Total 0.4 mg/dL (0.3-1.2); Blood Urea Nitrogen 20 mg/dL (9-23); Calcium 8.2 mg/dL (8.3-10.6); Calcium (Corrected) 8.7 mg/dL (8.5-10.1); Carbon Dioxide 31.9 mMol/L (20.0-31.0); Chloride 106 mMol/L (98-107); Creatinine (Component) 1.3 mg/dL (0.6-1.3); Estimated Creatinine Clearance 80.5 mL/min (>60); Globulin 1.9 gm/dL (2.3-3.5); Glucose 81 mg/dL (74-106); Osmolality,Calculated 290 (275-295); Potassium 3.7 mMol/L (3.4-5.1); Sodium 145 mMol/L (136-145); Total Protein 5.3 gm/dL (5.7-8.2); eGFR > 60 See Note
--- NOTE | 2025-06-04 09:00 | PC.SS ---
Follow up note: Cardio cath possible d/c tomorrow.
[2025-06-04] MEDS: cefTRIAXone/D5w 1gm IV premix 1 GM/50 ML BAG IV (09:16)
[2025-06-04] MEDS: POLYETHYLENE GLYCOL 17 GM PACKET PO (09:16)
[2025-06-04] MEDS: PANTOPRAZOLE 40 MG TABLET PO (09:17)
[2025-06-04] MEDS: ESCITALOPRAM OXALATE 10 MG TABLET PO (09:17)
--- NOTE | 2025-06-04 09:56 | PD.RESPRO ---
Documentation for date of: 06/04/25 Subjective Subjective Interval history: 65-year-old male with a past medical history of chronic back pain with subcutaneous infusion pump, depression/anxiety, GERD, migraines, sleep apnea, HLD, and on testosterone replacement therapy, presented to the hospital on 06/01/2025 due to altered mental staus. Patient was at [facility] at the time, there for most of the history was taken from patient?s . The day before admission, patient was complaining of excessive sweating and had 1 episode of vomiting after breakfast. On 06/01, patient remained unresponsive with pinpoint pupils, therefore, called ambulance. Per ED note, EMS was called and steam presser that arrived on the scene noted GCS of 10. Patient was then brought to the ED by EMS, and EMS staff did note blood pressure of 80/50, heart rate 102, respiratory rate 20, and pulse ox 91% O2 saturation. After receiving 2 L of fluid bolus and being started on maintenance fluid, patient was noted to have significant improvement of altered mental status. Patient was admitted for DIXON and sepsis. Nephrology has been consulted for management of DIXON. ED course: Initial vitals were significant for blood pressure 80/50, heart rate 107, respiratory rate 24, and O2 saturation 88% on room air. Initial labs were significant for WBC 26.0, potassium 6.7, creatinine 3.7, lactic acid 4.2, troponin 1.973, and BNP 219. ABG showed pH of 7.23, pCO2 61, and pO2 57. VBG showed pH 7.26 and PaO2 77. Labs within normal limits noted to be ammonia and procalcitonin. Urinalysis negative. U tox positive for opiates and methamphetamine. EKG negative for ST elevations. CXR negative for pneumonia, CT head negative for acute processes. Gave patient 1 L LR and 1 L NS. Patient was started on BiPAP given high pCO2. Patient given Kayexalate 30 mg p.o., albuterol 10 mg inhaled, and 10 units of insulin with 500 of D50 for management of hyperkalemia. Consulted nephrology, who recommended continuing IV maintenance fluid and Mendenhall catheter insertion. Consulted staff appraiser, who recommended trending troponins, giving loading dose of aspirin, and deferring heparin drip for now. Past Surgical History: Sternum repair ( for ribs growing inwards , 9 to 14 years old), left rotator cuff repair, back surgery x 2, implantation of pain pump in right lower abdomen (morphine). Current Medication(s): Patient's family is unsure, pending med rec. Allergies (w/ Reactions): Iodine and latex (hives) Family History: Noncontributory Alcohol Intake: Patient denies Tobacco/Vape Use: Patient denies Other Drug Use: Patient denies 06/02/2025: Labs reviewed and patient examined at the bedside. Patient is awake and alert and was able to interact with medical providers. However was on BiPAP. His was beside him and was able to provide us with the history. Placement of Mendenhall Catheter has been attempted due to urinary retention, but was unable to do so. Therefore, Suprapubic catheter has been placed. Potassium was high with 5.4. Kayexalate 30mg PO x1 was given. BP:118/72 BUN: 40, Cr:3.2, eGFR:21 06/03/2025: Labs reviewed and patient examined at the bedside. Patient lies comfortable in bed with O2sat 97% on NC 3L. Able to understand and interact with medical providers. Creatinine is downtrending. Great improvment in mental status. Renal US showed multiple nonobstructing left renal calculi and moderate bilateral renal parenchymal scar formation. Patient has no other complaints. Urine Output: 1.1 L BUN: 29, Cr: 1.9, eGFR:38. 06/04/2025: Labs reviewed and patient examined at the bedside. on 96% O2sat on NC2L. Patient lies comfortable on bed. WBC remarkable decline from 23.7 to 11.9, compared to yesterday. Currently waiting for urology consult. Urine on mendenhall bag is clear yellow. Current plan remains unchanged. Renal function improving. BUN:20, Cr:1.3, eGFR:>60 Exam Vital Signs Temp Pulse Resp BP Pulse Ox O2 Del Method O2 Flow Rate 96.8 F 80 20 144/85 H 96 Nasal Cannula 2 06/04/25 08:00 06/04/25 08:00 06/04/25 08:00 06/04/25 08:00 06/04/25 08:00 06/04/25 08:00 06/04/25 08:00 FiO2 35 06/04/25 02:48 Narrative Exam General: well nourished, AAO x3 Eye: normal conjunctiva, no scleral icterus, pinpoint pupil HENT: Normocephalic, atraumatic, hearing intact to conversation at normal volume, moist oral mucosa Neck: Supple, non-tender, no JVD, no lymphadenopathy Lungs: Non-labored respirations, symmetric chest rise, Clear to auscultate bilaterally, No wheezing, rhonchi, crackles Heart: Peripheral pulses intact bilaterally, Regular Rate and Rhythm. Abdomen: Soft, non-tender, non-distended, no palpable masses, Suprapubic catheter placement Musculoskeletal: Normal range of motion and strength, No cyanosis or edema, No visible joint swelling Skin: Skin is warm, dry, no rashes or lesions. Psychiatric: Cooperative, appropriate mood and affect, Awake and alert Neuro: Cranial nerves II-XII grossly intact. Sensations intact to light touch. Objective Labs 06/06/25 04:40 06/06/25 04:40 Labs: Laboratory Results - last 24 hr 06/03/25 06/03/25 06/04/25 09:00 14:58 04:43 WBC 11.9 H D RBC 4.44 L Hgb 12.3 L Hct 39.9 L MCV 90 MCH 27.7 MCHC 30.8 L RDW Std Deviation 45.5 H Plt Count 258 Neut % (Auto) 75 Lymph % (Auto) 13 [place] % (Auto) 10 Eos % (Auto) 1 Baso % (Auto) 0 Neut # (Auto) 8.9 H Lymph # (Auto) 1.5 [place] # (Auto) 1.2 H Eos # (Auto) 0.1 Baso # (Auto) 0.1 Immature Gran # (Auto) 0.04 H Absolute Nucleated RBC 0.00 Immature Gran % 0 Nucleated RBC % 0 PT 11.2 INR 1.0 APTT 50.3 H D 46.8 H 25.6 D Sodium 145 Potassium 3.7 D Chloride 106 Carbon Dioxide 31.9 H Anion Gap 7 BUN 20 Creatinine 1.3 D Estim Creat Clear Calc 80.5 eGFR > 60 BUN/Creatinine Ratio 15 Glucose 81 Calculated Osmolality 290 Calcium 8.2 L Corrected Calcium 8.7 Total Bilirubin 0.4 AST 29 ALT 33 Alkaline Phosphatase 92 D Total Protein 5.3 L Albumin 3.4 Globulin 1.9 L Albumin/Globulin Ratio 1.8 ABG Interpretation ABG results: 06/01/25 06/01/25 06/01/25 09:46 10:08 14:16 ABG pH 7.23 L ABG pCO2 61 H ABG pO2 57 L* ABG HCO3 26 ABG O2 Saturation 87 L ABG Base Excess -3 VBG pH 7.26 L 7.29 L VBG pCO2 50 54 VBG pO2 45 75 H D VBG Base Excess -5 L -2 06/02/25 09:20 ABG pH 7.31 L ABG pCO2 53 H ABG pO2 95 D ABG HCO3 26 ABG O2 Saturation 98 ABG Base Excess -1 VBG pH VBG pCO2 VBG pO2 VBG Base Excess Quality Measures Quality Measures VTE prophylaxis Advance care planning discussed with:: patient and other Assessment & Plan Assessment Current Active Medications: Generic Name Dose Route Start Last Admin Trade Name Freq PRN Reason Stop Dose Admin Acetaminophen 650 mg 06/01/25 12:12 Acetaminophen 325 Mg Tablet PO 07/01/25 12:11 Q6H PRN Fever >101.4 Albuterol/Ipratropium 3 ml 06/01/25 12:12 Albuterol/Ipratropium (Duoneb) Rt [place] 3 Ml Nebu INH 07/01/25 12:11 Q6HR PRN SHORTNESS OF BREATH OR WHEEZE Aspirin 81 mg 06/02/25 19:00 06/03/25 08:17 Aspirin Ec 81 Mg Tabec PO 07/02/25 18:59 81 mg On Hold: 06/04/25 07:51 QDAY GERMAN Administration Diazepam 2 mg 06/03/25 09:37 Diazepam Inj 5 Mg/Ml Vial 2 Ml IVP X1 PRN Anxiety/agitation before NM scan Escitalopram Oxalate 10 mg 06/02/25 13:15 06/04/25 09:17 Escitalopram Oxalate 10 Mg Tablet PO 07/02/25 13:14 10 mg QDAY GERMAN Administration Ceftriaxone Sodium/Dextrose 1 gm in 50 mls @ 100 mls/hr 06/01/25 12:17 06/04/25 09:16 Rocephin/D5w 1gm Iv Premix IV 06/06/25 12:16 100 mls/hr QDAY GERMAN Administration Olanzapine 5 mg 06/02/25 21:00 06/03/25 20:25 Olanzapine 5 Mg Tablet PO 07/02/25 20:59 5 mg HS GREMAN Administration Ondansetron HCl 4 mg 06/01/25 09:28 Ondansetron Inj 2 Mg/Ml Inj 2 Ml IVP 07/01/25 09:27 Q4HR PRN NAUSEA OR VOMITING Pantoprazole Sodium 40 mg 06/03/25 09:00 06/04/25 09:17 Pantoprazole 40 Mg Tablet PO 07/03/25 08:59 40 mg QDAY GERMAN Administration Sennosides 1 tab 06/02/25 09:00 06/04/25 09:17 Senna Tablet PO 07/02/25 08:59 1 tab QDAY GERMAN Administration Protocol Plan 65-year-old male with a past medical history of chronic back pain with subcutaneous infusion pump, depression/anxiety, GERD, migraines, sleep apnea, HLD, and on testosterone replacement therapy, presented to the hospital on 06/01/2025 due to altered mental status. Patient was admitted for DIXON and sepsis. Nephrology has been consulted for management of DIXON. #DIXON #2/2 pre-renal vs urinary retention -In January 2025, patient's Cr:1.2, eGFR:67 -Upon admission, BP:80/50, BUN 24 , Cr 3.4 (Baseline of 1.2), eGFR 17 -DIXON could be secondary to pre-renal due to hypoperfusion vs post-renal due to urinary retention. -Suprapubic catheter is in place -Currently, BUN:20, Cr:1.3, eGFR:>60 Plan: -Continue to monitor renal function -Ordered random urine total protein, electrolytes, and creatinine -Avoid nephrotoxins -Renally dose medication #Hyperkalemia-Resolved -potassium of 3.7 this morning Plan: -Continue to monitor #Acute hypoxic respiratory failure #Acute hypercapnic respiratory failure #Sepsis 2/2 #Commune acquired pneumonia #Lactic acidosis, resolved #Leukocytosis #NSTEMI, type I versus type II #Elevated troponins #Methamphetamine use #GERD #Chronic pain s/p subcutaneous pump #Depression #Anxiety #Testosterone supplementation -Management per Primary Hospitalist team Thank you for allowing us to participate in the care of your patient. Assessment and plan discussed with my attending physician Dr.Vemuri Dr. Davis (PGY-1)- Internal medicine resident Attending Provider Attestation/Addendum Patient seen and examined with resident physician Dr. Davis. Note reviewed, agree with findings and recommendations. Patient currently seen in telemetry. DIXON most likely related to obstructive uropathy superimposed on prerenal azotemia. Patient has suprapubic catheter. Needs urology follow-up as an outpatient. Unable to place Mendenhall catheter in the ER. Hyperkalemia improved. Patient has good urine output. at bedside. Creatinine markedly improved. Cardiology on the case for elevated troponin-planning to do angiogram in AM. Dr. Gautam will plan for Mendenhall placement today
--- NOTE | 2025-06-04 10:35 | ESPR_ITS ---
<Statement entered by Wyatt Mcginnis MD - 06/04/25 15:35> Patient seen and assessed in hospital bed with family at bedside. Patient denies having any concerning symptoms. Urology completed cystoscopy and a Bertrand catheter has been placed. If the patient continues to drain urine normally from Bertrand, then removal of supra-pubic catheter will take place. Patient has prostatomegaly and will need bladder training afterwards. VQ scan was negative for any signs of PE. Cardiology is planning on possible left heart cath as the patient's troponin was elevated and there is risk for coronary artery disease. Will continue to monitor the patient for any acute changes. I have personally seen and examined the patient. I agree with the resident's assessment and plan as documented below. Wyatt Mcginnis DO PGY-2 Internal Medicine - GME Documentation for date of: 06/04/25 Subjective Subjective Interval history: Overnight events: No acute events overnight. Patient was seen and examined at bedside. AM vitals and labs reviewed. Patient appears to be in a much better mood today. Patient was seen smiling. Face is still very red. Patient does not appear as confused as yesterday. No acute complaints today. WBC 11.9, creatinine 1.3 V/Q scan negative for pulmonary embolism. Urology performed cystoscopy today and noted prostamegaly with large median lobe false passage in the urethra. Bertrand catheter was placed, suprapubic catheter clamped. Possible suprapubic catheter removal tomorrow. Per cardiology, patient may require cardiac cath before discharge. Patient will be put n.p.o. after midnight. Patient completed course of azithromycin today, and will complete course of Rocephin tomorrow. Started patient on statin given ASCVD score 10.6%. Aspirin 81 mg started by cardiology, on hold given procedure today and possible procedure tomorrow. Review of systems otherwise negative except for what is mentioned above. Exam Vital Signs Temp Pulse Resp BP Pulse Ox O2 Del Method O2 Flow Rate 96.8 F 80 20 144/85 H 96 Nasal Cannula 2 06/04/25 08:00 06/04/25 08:00 06/04/25 08:00 06/04/25 08:00 06/04/25 08:00 06/04/25 08:00 06/04/25 08:00 FiO2 35 06/04/25 02:48 Narrative Exam Physical Exam: General: Alert, no acute distress. Skin: Warm, dry, intact. Head: Normocephalic, atraumatic. Eye: Normal conjunctiva, PERRL. Cardiovascular: Regular rate and rhythm, no murmur, +S1/S2. Respiratory: Lungs are clear to auscultation, respirations unlabored, no crackles, no wheezing. Gastrointestinal: Soft, nontender, distended. No guarding or rebound tenderness. Extremities: No edema, no cyanosis, no clubbing. Neuro: No focal deficits observed. Conversant, moving all extremities. No overt cerebellar signs/incoordination. Psychiatric: Cooperative, terse affect. : Suprapubic catheter in place. Objective Labs 06/05/25 05:00 06/04/25 04:43 Labs: Laboratory Results - last 24 hr 06/03/25 06/04/25 14:58 04:43 WBC 11.9 H D RBC 4.44 L Hgb 12.3 L Hct 39.9 L MCV 90 MCH 27.7 MCHC 30.8 L RDW Std Deviation 45.5 H Plt Count 258 Neut % (Auto) 75 Lymph % (Auto) 13 Pettis % (Auto) 10 Eos % (Auto) 1 Baso % (Auto) 0 Neut # (Auto) 8.9 H Lymph # (Auto) 1.5 Pettis # (Auto) 1.2 H Eos # (Auto) 0.1 Baso # (Auto) 0.1 Immature Gran # (Auto) 0.04 H Absolute Nucleated RBC 0.00 Immature Gran % 0 Nucleated RBC % 0 PT 11.2 INR 1.0 APTT 46.8 H 25.6 D Sodium 145 Potassium 3.7 D Chloride 106 Carbon Dioxide 31.9 H Anion Gap 7 BUN 20 Creatinine 1.3 D Estim Creat Clear Calc 80.5 eGFR > 60 BUN/Creatinine Ratio 15 Glucose 81 Calculated Osmolality 290 Calcium 8.2 L Corrected Calcium 8.7 Total Bilirubin 0.4 AST 29 ALT 33 Alkaline Phosphatase 92 D Total Protein 5.3 L Albumin 3.4 Globulin 1.9 L Albumin/Globulin Ratio 1.8 ABG Interpretation ABG results: 06/01/25 06/01/25 06/01/25 09:46 10:08 14:16 ABG pH 7.23 L ABG pCO2 61 H ABG pO2 57 L* ABG HCO3 26 ABG O2 Saturation 87 L ABG Base Excess -3 VBG pH 7.26 L 7.29 L VBG pCO2 50 54 VBG pO2 45 75 H D VBG Base Excess -5 L -2 06/02/25 09:20 ABG pH 7.31 L ABG pCO2 53 H ABG pO2 95 D ABG HCO3 26 ABG O2 Saturation 98 ABG Base Excess -1 VBG pH VBG pCO2 VBG pO2 VBG Base Excess Quality Measures Quality Measures VTE prophylaxis Advance care planning discussed with:: patient, spouse and child Assessment & Plan Assessment Current Active Medications: Generic Name Dose Route Start Last Admin Trade Name Freq PRN Reason Stop Dose Admin Acetaminophen 650 mg 06/01/25 12:12 Acetaminophen 325 Mg Tablet PO 07/01/25 12:11 Q6H PRN Fever >101.4 Albuterol/Ipratropium 3 ml 06/01/25 12:12 Albuterol/Ipratropium (Duoneb) Rt Caridad 3 Ml Nebu INH 07/01/25 12:11 Q6HR PRN SHORTNESS OF BREATH OR WHEEZE Aspirin 81 mg 06/02/25 19:00 06/03/25 08:17 Aspirin Ec 81 Mg Tabec PO 07/02/25 18:59 81 mg On Hold: 06/04/25 07:51 QDAY GERMAN Administration Atorvastatin Calcium 40 mg 06/04/25 21:00 Atorvastatin Calcium 20 Mg Tablet PO 07/04/25 20:59 HS GERMAN Diazepam 2 mg 06/03/25 09:37 Diazepam Inj 5 Mg/Ml Vial 2 Ml IVP X1 PRN Anxiety/agitation before NM scan Escitalopram Oxalate 10 mg 06/02/25 13:15 06/04/25 09:17 Escitalopram Oxalate 10 Mg Tablet PO 07/02/25 13:14 10 mg QDAY GERMAN Administration Ceftriaxone Sodium/Dextrose 1 gm in 50 mls @ 100 mls/hr 06/01/25 12:17 06/04/25 09:16 Rocephin/D5w 1gm Iv Premix IV 06/06/25 12:16 100 mls/hr QDAY GERMAN Administration Olanzapine 5 mg 06/02/25 21:00 06/03/25 20:25 Olanzapine 5 Mg Tablet PO 07/02/25 20:59 5 mg HS GERMAN Administration Ondansetron HCl 4 mg 06/01/25 09:28 Ondansetron Inj 2 Mg/Ml Inj 2 Ml IVP 07/01/25 09:27 Q4HR PRN NAUSEA OR VOMITING Pantoprazole Sodium 40 mg 06/03/25 09:00 06/04/25 09:17 Pantoprazole 40 Mg Tablet PO 07/03/25 08:59 40 mg QDAY GERMAN Administration Sennosides 1 tab 06/02/25 09:00 06/04/25 09:17 Senna Tablet PO 07/02/25 08:59 1 tab QDAY GERMAN Administration Protocol Plan Mr. Lizarraga is a 65-year-old male with a past medical history of chronic back pain with subcutaneous infusion pump, depression/anxiety, GERD, migraines, sleep apnea, HLD, and on testosterone replacement therapy who presented to [facility] ED on 06/01 for altered mental status. The patient was admitted for management of DIXON and sepsis. #NSTEMI, type I versus type II #Elevated troponins #Methamphetamine use #RV enlargement, suspected right heart strain #PE ruled out Patient does not have any chest pain and EKG negative for ST elevations, however patient was noted to have troponin of 1.973 in the ED. In ED, case was discussed with cardiology, who did not recommend heparin drip at that time. Patient is noted to have previous cardiac workup by paver installer in [place], including angiogram, all of which were negative per the family. Patient received one-time dose of aspirin 325 mg in ED. Cardiology noted that patient had RV enlargement and possible right heart strain on echo, suspicious for possible PE. ASCVD score 10.6 % risk of cardiovascular event (coronary or stroke or non-fatal VA or stroke) in next 10 years. Diagnostic: Repeat troponin 06/01 12:54 shows troponin 2.891 Troponin peaked at 4.285 on 06/01, decreased to 3.345 on 06/02 Urine toxicology positive for opiates and methamphetamine Echocardiogram ordered, pending official read, per cardiology shows RV enlargemnt and possible right heart strain V/Q mismatch scan ordered, negative for pulmonary embolism Plan: Cardiology consulted, appreciate recommendations Possible cardiac catheterization per cardiology team ASA 81 mg daily, on hold given possible procedure Atorvastatin 40 mg nightly #Acute encephalopathy, resolved #Acute hypoxic hypercapnic respiratory failure, resolving #Sepsis 2/2 #Commune acquired pneumonia #Lactic acidosis, resolved #Leukocytosis, resolved Patient presented with O2 sat of 88% on room air. In ED, it was noted that the patient had a blood pressure of 80/50, heart rate 107, respiratory rate 24, and WBC 26. Patient remains afebrile throughout ED course and family at bedside does not know any fevers, however patient was noted to be sweating the day before and the morning before coming to the ED. Additionally, patient was noted to have lactic acid of 4.2, which supports a picture of sepsis. Given the decreased O2 saturation, it is likely a community-acquired pneumonia, however CXR in the ED is negative. ABG was performed in ED, which showed elevated pCO2, so patient was started on BiPAP for CO2 retention. SIRS score 3 Diagnostic: Repeat lactic acid 06/01 is 2.0 Plan: Ceftriaxone 1 g daily (06/01 - 06/05) Azithromycin 500 mg daily (06/01 - 06/03) Continue BiPAP, wean off tolerated DuoNebs 3 mL inhaled every 6 hour as needed #DIXON, likely prerenal, resolved #CKD Patient noted to have been working out in the sun day before admission. On admission, the patient was noted to have creatinine of 3.7, which is increased from his baseline of 1.3. While patient is noted to have decent oral intake per family, his DIXON is most likely secondary to poor oral intake prior to being admitted. In ED, nephrology was consulted, who recommended continuing with IV fluid hydration. Diagnostic: Renal ultrasound ordered 06/01, shows multiple nonobstructing left renal calculi and moderate bilateral renal parenchyma scar formation, supportive of CKD Rx: Multiple liters of LR and NS Diagnostics: Ordered urine electrolytes, creatinine, and total protein, shows urine creatinine over 245, urine protein 165, urine random sodium 27.5, urine random potassium 85, and urine random chloride 49.4 Plan: Nephrology consulted, appreciate recommendations Avoid nephrotoxic drugs, renally dose medications Patient to follow up outpatient #Urinary retention Attempted to place Bertrand catheter in patient as patient was noted to have 392 cc of volume in bladder on renal ultrasound. Was not able to successfully place catheter in initially in ED. Bladder scan a few hours later showed 562 cc of urine in bladder. Attempted additional attempts, but was unsuccessful. This may potentially be contributing to the altered mentation that was noted prior to coming to ED. Rx: Suprapubic catheter placed 06/01 Cystoscopy performed on 06/04, found prostamegaly with large median lobe false passage in the urethra Bertrand catheter placed 06/04 Plan: Consulted urology, appreciate recommendations Suprapubic catheter clamped 06/04, possible removal on 06/05 pending Bertrand catheter status #Hyperkalemia, resolved Patient noted to have potassium of 6.7 in ED. Patient given Kayexalate 30 mg p.o., albuterol 10 mg inhaled, and 10 units of insulin with 500 of D50 for management of hyperkalemia in ED Diagnostic: Repeat renal panel 06/01 12:54 shows potassium 4.7 Plan: Continue to monitor, will treat with hyperkalemia protocol if necessary #GERD Patient endorses a history of GERD and takes pantoprazole at home according to family. Plan: Protonix 40 mg twice daily GERD diet #Chronic pain s/p subcutaneous pump Patient is noted to have chronic pain that is managed with a subcutaneous pump that delivers morphine. This is likely for his back pain given 2 previous surgeries. Plan: Will continue to monitor, manage with pain medication as necessary #Depression #Anxiety Patient is noted to have a history of depression/anxiety. Per outside pharmacy data, patient appears to take escitalopram and olanzapine. Plan: Pending med rec Given altered mental status on admission, will hold medications for now #Testosterone supplementation Per patient's family and outside pharmacy data, patient is on testosterone supplementation. It is not entirely clear as to why. Plan: Patient to follow-up outpatient DVT Prophylaxis: Heparin GI Prophylaxis: Protonix Bowel: Senna Diet: GERD & cardiac Bertrand: N/A Lines: Peripheral IV Antibiotics: Ceftriaxone (06/01-06/05) & Azithromycin (06/01-06/03) Code Status: FULL Reason for Hospitalization: DIXON and sepsis Other Barriers to Discharge: Urology consult Patient plan of care was discussed with attending physician Dr. Rivera and senior resident Dr. Mcginnis (PGY-2) Rikki Alonzo, PGY1 Attending Provider Attestation/Addendum I have examined the patient, reviewed labs and imaging findings, discussed the case with the resident(s), and reviewed entered orders. I agree with the plan of care as outlined in this note, with these additional summaries/recommendations: Patient seen at bedside. No acute overnight events. Continue IV antibiotics for community-acquired pneumonia. In-house nephrology following for DIXON on CKD. DIXON most likely secondary to to prerenal azotemia versus less likely postrenal from acute urinary retention. Continue IV fluids and avoid nephrotoxic agents. Renally dose medications. Renal function slowly improving. Patient also diagnosed with NSTEMI most likely type II versus type I. No acute ST changes indicative of acute ischemia. We will follow-up with cardiology in regards to cardiac catheterization as patient reportedly dose have a history fo CAD. On admission there was concern for right heart strain on echocardiogram and high suspicion for pulmonary embolism. He was empirically started on heparin gtt which we will discontinue today as V/Q scan returned negative for perfusion deficit. Continue aspirin 81 mg p.o. daily & statin therapy. Patient is status post suprapubic catheter for acute urinary retention. In-house urology following with plans for cystoscopy today 06/04. Continue CPAP at night for ANA. Patient updated on the plan and in agreement. All questions answered to satisfaction. Please see residents note for additional details and management. Dr. Miguel MD
--- NOTE | 2025-06-04 12:55 | PC.SS ---
Walkers The diagnosis creates mobility limitation that significantly impairs ability to participate in the patients activities of daily living either in their entirety, or in a reasonable time frame. Also the patient is able to safely use the walker and the patient?s mobility is sufficiently resolved with the use of the walker and cane has been ruled out.
--- NOTE | 2025-06-04 14:10 | PC.PT ---
Patient is safe to ambulate to the bathroom with a FWW and 1 staff assist. RN made aware.
--- NOTE | 2025-06-04 14:39 | SUR.PHASEI ---
1439: Pt. AAOx4, vitals stable, breathing unlabored, no complaint of pain or nausea, dressing to lower ABD CDI, mendenhall catheter in place draining hematuria, report received from Trip BREWER and Reyes CLARK.
--- NOTE | 2025-06-04 14:44 | PD.SUROPNT ---
Date of Procedure 06/04/25 Pre Op Diagnosis BPH with urinary obstruction and LUTS, urinary retention, placement of suprapubic cystostomy tube, acute kidney injury Post Op Diagnosis Prostatomegaly false passage in the anterior urethra Procedure Cystoscopic examination and placement of Bertrand catheter Findings Prostatomegaly with a large median lobe false passage in the urethra Procedure Description Indication for procedure this is a 65-year-old gentleman he was admitted in the hospital with multiple medical problems. He had acute renal failure urinary retention had a placement of suprapubic cystostomy. Prior to inserting a suprapubic cystostomy tube multiple attempts were made to pass a Bertrand catheter which had failed patient was recommended cystoscopy and possible dilation of the urethral stricture placement of Bertrand catheter procedure and complications were discussed with the patient in great detail informed consent is obtained Patient was brought to the operating room in a satisfactory condition after appropriate premedication he was appropriately identified by surgeon operating room staff site scope and indications of the procedure were reconfirmed with the patient. Next general anesthesia was given uneventfully patient was positioned in a dorsal lithotomy position parts were prepped and draped in the usual sterile fashion 2% lidocaine was instilled into the urethra 21 cystoscope was introduced into the bladder per urethra examination of urethra revealed false passage as a result of attempted insertion of Bertrand catheter multiple times. I was able to pass open-ended Pollick catheter and into the bladder I was able to pass the scope into the bladder examination of the bladder revealed no tumors stones or diverticula he had coarse bladder trabeculation.. Examination of the prostatic urethra had revealed elongated tortuous prostatic urethra with a very large median lobe enlargement next I left the open-ended Pollick catheter into the bladder. Cystoscopy scope was withdrawn gently. Over the open-ended Pollick catheter I was able to place 20 Upper Sorbian Bertrand catheter. Balloon was inflated with 10 cc of water irrigation was carried out the return of the fluid was almost clear. At this time I clamped the suprapubic cystostomy tube if he continues to drain through the Bertrand catheter the suprapubic cystostomy can be removed tomorrow. Pathology / specimen None Estimated Blood Loss 0.5 Condition Stable Disposition PACU Surgeon Brittnee Hsieh MD Surgical Staff Operation Date: 06/04/25 13:30 <No data on this case meets the specified criteria>
--- NOTE | 2025-06-04 15:05 | PC.SS ---
SS has met with at bedside to provide verbal choices for DME. is requesting to utilize [employer] company due to being local for walker. SS has sent DME order for front wheel walker to [facility].
--- NOTE | 2025-06-04 15:10 | SUR.PHASEI ---
1510: Pt. awake, and alert, pt. oriented to name, , and current year, but was unaware of being at the hospital/having a procedure done. Pt. was reoriented, pt. verbalized understanding that a procedure was done and that he was in the hospital. Notified Henrietta CLARK and she stated that he had altered mental status earlier this morning as well. Pt. vitals stable, breathing unlabored, no complaint of pain or nausea, dressing to lower ABD CDI, mendenhall catheter in place draining hematuria, pt. tolerated sips of water well, gave report to Henrietta CLARK prior to transfer to room. Family made aware of transfer to room
[2025-06-04] MEDS: LABETALOL INJ 5 MG/ML VIAL 20 ML 10 MG IVP (16:27)
--- NOTE | 2025-06-04 19:37 | ESCONSULT_ITS ---
RE: SHERRI VALENZUELA : 1960 DATE OF CONSULTATION: 06/04/2025 CHIEF COMPLAINT: 1. Benign prostatic hypertrophy with urinary obstruction. 2. Urinary retention. 3. Attempted catheterization had failed, tried multiple times, and his residual urine was 600 mL and he was in acute renal failure. He had placement of suprapubic cystostomy tube. HISTORY OF PRESENT ILLNESS: Mr. Valenzuela is a 65-year-old gentleman. This patient has past medical history of chronic pain with subcutaneous infusion pump, depression/anxiety, GERD, sleep apnea, HLD and on testosterone replacement therapy, who presented to the emergency room with altered mental status. According to the note, the patient has symptoms of lethargy started about 2 days before coming to the emergency room. The patient had increased sweating and it was difficult to wake him up by his . The patient was diaphoretic, cold, clammy. He was lethargic. During the evaluation on the admission, the patient was noted to have BiPAP and was obtaining CO2 per ABG. In the emergency room, his blood pressure was 80/50, heart rate 107, respirations 24, O2 saturation 88% on room temperature. He had significant elevation of WBC. His serum creatinine was 3.7 and WBC was 26,000. DIAGNOSES: The patient was diagnosed with 1. DIXON, likely prerenal and chronic kidney disease. 2. Acute hypoxic respiratory failure. 3. Acute hypercapnic respiratory failure. 4. Sepsis 2/2. 5. Community acquired pneumonia. 6. Lactic acidosis, resolved. Today, the patient is feeling a lot better. PHYSICAL EXAMINATION: VITAL SIGNS: Stable. They are in HPI, in EMR. GENERAL: Condition is satisfactory. The patient is not in acute distress. He is alert. HEENT: Normocephalic and atraumatic. Eyes: No anemia or jaundice. NECK: Supple. Trachea is central. Thyroid is not enlarged. CHEST: Symmetrical. HEART: Regular rate and rhythm. ABDOMEN: Obese. EXTREMITIES: Revealed no edema, cyanosis or clubbing. IMPRESSION: From my point of view impression is 1. Benign prostatic hypertrophy with urinary obstruction. 2. Urinary retention. 3. Acute kidney injury as a result of urinary retention postrenal. RECOMMENDATIONS: I discussed with him and his in great detail about his condition recommend. Cystoscopic examination, possible urethral dilation, possible direct vision internal urethrotomy, and removal of the suprapubic cystostomy tube. Mostly, it is going to be diagnostic. Procedure and complications of which were discussed with the patient in great detail. Informed consent is obtained. Patient is scheduled for the same DT: 10:34:03 TT: 11:08:00 Ref: [id number] - TID: [id number] MTDD
--- NOTE | 2025-06-04 20:26 | ESPR_ITS ---
<Statement entered by Janette Carter MD - 06/07/25 14:12> I personally evaluated examined the patient doing much better now white count is normal sepsis is controlled patient had a significant troponin elevation with mild CAD in the past and recommended coronary angiogram risk benefits alternatives explained we will perform cholangiogram tomorrow. Evaluated patient with resident physician Dr. Woods PGY2 agree with the treatment plan recommendation as documented. Documentation for date of: 06/04/25 Subjective Subjective Interval history: Patient seen and evaluated at the bedside found awake, alert. No active complaints at this time. Vitals and labs reviewed. Patient had cystoscopy done today by Urology. Patient has significantly improved including kidney function now at baseline. Will place NPO after midnight for left heart cath in the am @ 11am. Exam Vital Signs Temp Pulse Resp BP Pulse Ox O2 Del Method O2 Flow Rate 97.1 F 89 24 H 154/86 H 93 L Nasal Cannula 2.5 06/04/25 16:00 06/04/25 19:40 06/04/25 19:40 06/04/25 16:27 06/04/25 19:40 06/04/25 16:00 06/04/25 19:09 FiO2 35 06/04/25 19:09 Narrative Exam Physical Exam GENERAL: NAD, HEENT: dry mucosa. Eyes open, symmetrical, pin-point CARDIO: Heart RRR, no obvious murmurs PULM: No noted coughing/dyspnea CTA B/L, no R/W/R GI: Abdomen soft, nondistended, no pain on palpation. BSx4 SKIN/MSK/EXT: No wounds/rashes/edema/amputations, no pain on palpation. cold LE bilaterally diminished dorsalis pedis NEURO: AAOx3, no focal neuro deficits, able to move all 4 extremities Objective Labs 06/04/25 04:43 06/04/25 04:43 Labs: Laboratory Results - last 24 hr 06/04/25 04:43 WBC 11.9 H D RBC 4.44 L Hgb 12.3 L Hct 39.9 L MCV 90 MCH 27.7 MCHC 30.8 L RDW Std Deviation 45.5 H Plt Count 258 Neut % (Auto) 75 Lymph % (Auto) 13 [place] % (Auto) 10 Eos % (Auto) 1 Baso % (Auto) 0 Neut # (Auto) 8.9 H Lymph # (Auto) 1.5 [place] # (Auto) 1.2 H Eos # (Auto) 0.1 Baso # (Auto) 0.1 Immature Gran # (Auto) 0.04 H Absolute Nucleated RBC 0.00 Immature Gran % 0 Nucleated RBC % 0 PT 11.2 INR 1.0 APTT 25.6 D Sodium 145 Potassium 3.7 D Chloride 106 Carbon Dioxide 31.9 H Anion Gap 7 BUN 20 Creatinine 1.3 D Estim Creat Clear Calc 80.5 eGFR > 60 BUN/Creatinine Ratio 15 Glucose 81 Calculated Osmolality 290 Calcium 8.2 L Corrected Calcium 8.7 Total Bilirubin 0.4 AST 29 ALT 33 Alkaline Phosphatase 92 D Total Protein 5.3 L Albumin 3.4 Globulin 1.9 L Albumin/Globulin Ratio 1.8 ABG Interpretation ABG results: 06/01/25 06/01/25 06/01/25 09:46 10:08 14:16 ABG pH 7.23 L ABG pCO2 61 H ABG pO2 57 L* ABG HCO3 26 ABG O2 Saturation 87 L ABG Base Excess -3 VBG pH 7.26 L 7.29 L VBG pCO2 50 54 VBG pO2 45 75 H D VBG Base Excess -5 L -2 06/02/25 09:20 ABG pH 7.31 L ABG pCO2 53 H ABG pO2 95 D ABG HCO3 26 ABG O2 Saturation 98 ABG Base Excess -1 VBG pH VBG pCO2 VBG pO2 VBG Base Excess Quality Measures Quality Measures VTE prophylaxis Advance care planning discussed with:: patient Assessment & Plan Assessment Current Active Medications: Generic Name Dose Route Start Last Admin Trade Name Freq PRN Reason Stop Dose Admin Acetaminophen 650 mg 06/01/25 12:12 Acetaminophen 325 Mg Tablet PO 07/01/25 12:11 Q6H PRN Fever >101.4 Albuterol/Ipratropium 3 ml 06/01/25 12:12 Albuterol/Ipratropium (Duoneb) Rt Caridad 3 Ml Nebu INH 07/01/25 12:11 Q6HR PRN SHORTNESS OF BREATH OR WHEEZE Aspirin 81 mg 06/02/25 19:00 06/03/25 08:17 Aspirin Ec 81 Mg Tabec PO 07/02/25 18:59 81 mg On Hold: 06/04/25 07:51 QDAY GERMAN Administration Atorvastatin Calcium 40 mg 06/04/25 21:00 Atorvastatin Calcium 20 Mg Tablet PO 07/04/25 20:59 HS GERMAN Diazepam 2 mg 06/03/25 09:37 Diazepam Inj 5 Mg/Ml Vial 2 Ml IVP X1 PRN Anxiety/agitation before NM scan Escitalopram Oxalate 10 mg 06/02/25 13:15 06/04/25 09:17 Escitalopram Oxalate 10 Mg Tablet PO 07/02/25 13:14 10 mg QDAY GERMAN Administration Ceftriaxone Sodium/Dextrose 1 gm in 50 mls @ 100 mls/hr 06/01/25 12:17 06/04/25 09:46 Rocephin/D5w 1gm Iv Premix IV 06/06/25 12:16 Infused QDAY GERMAN Infusion Olanzapine 5 mg 06/02/25 21:00 06/03/25 20:25 Olanzapine 5 Mg Tablet PO 07/02/25 20:59 5 mg HS GERMAN Administration Ondansetron HCl 4 mg 06/01/25 09:28 Ondansetron Inj 2 Mg/Ml Inj 2 Ml IVP 07/01/25 09:27 Q4HR PRN NAUSEA OR VOMITING Pantoprazole Sodium 40 mg 06/03/25 09:00 06/04/25 09:17 Pantoprazole 40 Mg Tablet PO 07/03/25 08:59 40 mg QDAY GERMAN Administration Sennosides 1 tab 06/02/25 09:00 06/04/25 09:17 Senna Tablet PO 07/02/25 08:59 1 tab QDAY GERMAN Administration Protocol Plan 65-year-old male with past medical history of sleep apnea, hyperlipidemia, low testosterone on TRT, chronic back pain on morphine pump, GERD, depression and anxiety who presented to the ED due to altered mental status. Admitted for sepsis, dixon, elevated troponins. Cardiology consulted. #NSTEMI, likely type II #?Pulmonary embolism-ruled out Patient denies chest pain or pressure time. Currently on Bipap EKG shows no acute ST elevations Troponin is elevated at 1.9, likely secondary to underlying sepsis Patient had previous cardiac work up with [employer] Supervisor in [place], including angiogram all which were negative. Reviewed angiogram shows some plaque but no blockages. Wells score:3; moderate risk for PE; sedentary and heart rate > 100 V/Q scan negative for PE, US B/L LE negative for DVT Echo:Normal left ventricle function ejection fraction 50 to 55% with mild septal apical hypokinesis. Grade 1 diastolic dysfunction of the left ventricle. The RV size is moderately increased with normal systolic function. mild mitral regurgitation, mild tricuspid regurgitation with normal PA pressure. ? Pending cardiac cath in the am. ? Aspirin 81mg qday ? Treat underlying sepsis #DIXON, likely prerenal #Hyperkalemia #GERD #Chronic pain s/p subcutaneous pump #Depression #Anxiety ?As per primary team Case discussed with my attending Dr. Raul Woods MD PGY-2 Disclaimer: Despite multiple revisions, due to the dictation software being used, the document bellow may not be free of grammatical errors including phonetic/typographic errors. However, this does not deter from our commitment to providing health care in the patient's best interest in mind.
[2025-06-04] MEDS: ATORVASTATIN CALCIUM 20 MG TABLET 40 MG PO (20:39)
[2025-06-05] VITALS (21 sets, daily range): BP systolic 132–178; BP diastolic 74–96; PULSE 69–89; RESP 12–25; TEMP 36.1–37.7; O2SAT 94–99
[2025-06-05 06:08] LABS: Basophils # (Auto) 0.0 Thou/mm3 (0.0-0.2); Basophils % (Auto) 0 % (0-2.5); Eosinophils # (Auto) 0.0 Thou/mm3 (0.0-0.5); Eosinophils % (Auto) 0 % (0-10); Hematocrit 41.5 % (41.0-53.0); Hemoglobin 12.9 g/dL (13.5-16.0); Immature Granulocytes Auto 0.02 Thou/mm3 (0.00-0.00); Lymphocytes # (Auto) 0.6 Thou/mm3 (1.0-4.8); Lymphocytes % (Auto) 7 % (10-50); Mean Corpuscular HGB Conc 31.1 g/dl (31.0-37.0); Mean Corpuscular Hemoglobin 27.6 pg (25.0-35.0); Mean Corpuscular Volume 89 fL (80-100); Monocytes # (Auto) 0.7 Thou/mm3 (0.0-0.8); Monocytes % (Auto) 8 % (0-12); Neutrophils # (Auto) 7.0 Thou/mm3 (1.8-7.7); Neutrophils % (Auto) 84 % (37-80); Nucleated Red Blood Cell # 0.02 Thou/mm3 (0.00-0.00); Nucleated Red Blood Cell % 0 /100 WBC (0); Platelet Count 274 Thou/mm3 (140-440); RDW Standard Deviation 46.3 fL (35.1-43.9); Red Blood Count 4.67 Miln/mm3 (4.50-5.90); White Blood Count 8.3 Thou/mm3 (3.8-10.6)
[2025-06-05 07:53] LABS: Alanine Aminotransferase 34 U/L (10-49); Albumin, Serum 3.8 gm/dL (3.4-4.8); Albumin/Globulin Ratio 2.0 (1.2-2.2); Alkaline Phosphatase 94 U/L (46-116); Anion Gap 5 (7-16); Aspartate Amino Transferase 25 U/L (0-34); BUN/Creatinine Ratio 14 Ratio (12-20); Bilirubin,Total 0.5 mg/dL (0.3-1.2); Blood Urea Nitrogen 17 mg/dL (9-23); Calcium 8.5 mg/dL (8.3-10.6); Calcium (Corrected) 8.7 mg/dL (8.5-10.1); Carbon Dioxide 37.1 mMol/L (20.0-31.0); Chloride 104 mMol/L (98-107); Creatinine (Component) 1.2 mg/dL (0.6-1.3); Estimated Creatinine Clearance 86.0 mL/min (>60); Globulin 1.9 gm/dL (2.3-3.5); Glucose 120 mg/dL (74-106); Magnesium 2.0 mg/dL (1.6-2.6); Osmolality,Calculated 293 (275-295); Phosphorous 2.6 mg/dL (2.4-5.1); Potassium 4.5 mMol/L (3.4-5.1); Sodium 146 mMol/L (136-145); Total Protein 5.7 gm/dL (5.7-8.2); eGFR > 60 See Note
[2025-06-05] MEDS: cefTRIAXone/D5w 1gm IV premix 1 GM/50 ML BAG IV (08:59)
[2025-06-05] MEDS: SODIUM CHLORIDE 0.45 % 1,000 ML 100 ML IV (09:00)
[2025-06-05] MEDS: ASPIRIN EC 81 MG TABEC PO (09:09)
--- NOTE | 2025-06-05 09:13 | ESPR_ITS ---
Documentation for date of: 06/05/25 Subjective Subjective Interval history: 65-year-old male with a past medical history of chronic back pain with subcutaneous infusion pump, depression/anxiety, GERD, migraines, sleep apnea, HLD, and on testosterone replacement therapy, presented to the hospital on 06/01/2025 due to altered mental staus. Patient was at [facility] at the time, there for most of the history was taken from patient?s . The day before admission, patient was complaining of excessive sweating and had 1 episode of vomiting after breakfast. On 06/01, patient remained unresponsive with pinpoint pupils, therefore, called ambulance. Per ED note, EMS was called and volleyball player that arrived on the scene noted GCS of 10. Patient was then brought to the ED by EMS, and EMS staff did note blood pressure of 80/50, heart rate 102, respiratory rate 20, and pulse ox 91% O2 saturation. After receiving 2 L of fluid bolus and being started on maintenance fluid, patient was noted to have significant improvement of altered mental status. Patient was admitted for DIXON and sepsis. Nephrology has been consulted for management of DIXON. ED course: Initial vitals were significant for blood pressure 80/50, heart rate 107, respiratory rate 24, and O2 saturation 88% on room air. Initial labs were significant for WBC 26.0, potassium 6.7, creatinine 3.7, lactic acid 4.2, troponin 1.973, and BNP 219. ABG showed pH of 7.23, pCO2 61, and pO2 57. VBG showed pH 7.26 and PaO2 77. Labs within normal limits noted to be ammonia and procalcitonin. Urinalysis negative. U tox positive for opiates and methamphetamine. EKG negative for ST elevations. CXR negative for pneumonia, CT head negative for acute processes. Gave patient 1 L LR and 1 L NS. Patient was started on BiPAP given high pCO2. Patient given Kayexalate 30 mg p.o., albuterol 10 mg inhaled, and 10 units of insulin with 500 of D50 for management of hyperkalemia. Consulted nephrology, who recommended continuing IV maintenance fluid and Mendenhall catheter insertion. Consulted train crew member, who recommended trending troponins, giving loading dose of aspirin, and deferring heparin drip for now. Past Surgical History: Sternum repair ( for ribs growing inwards , 9 to 15 years old), left rotator cuff repair, back surgery x 2, implantation of pain pump in right lower abdomen (morphine). Current Medication(s): Patient's family is unsure, pending med rec. Allergies (w/ Reactions): Iodine and latex (hives) Family History: Noncontributory Alcohol Intake: Patient denies Tobacco/Vape Use: Patient denies Other Drug Use: Patient denies 06/02/2025: Labs reviewed and patient examined at the bedside. Patient is awake and alert and was able to interact with medical providers. However was on BiPAP. His was beside him and was able to provide us with the history. Placement of Mendenhall Catheter has been attempted due to urinary retention, but was unable to do so. Therefore, Suprapubic catheter has been placed. Potassium was high with 5.4. Kayexalate 30mg PO x1 was given. BP:118/72 BUN: 40, Cr:3.2, eGFR:21 06/03/2025: Labs reviewed and patient examined at the bedside. Patient lies comfortable in bed with O2sat 97% on NC 3L. Able to understand and interact with medical providers. Creatinine is downtrending. Great improvment in mental status. Renal US showed multiple nonobstructing left renal calculi and moderate bilateral renal parenchymal scar formation. Patient has no other complaints. Urine Output: 1.1 L BUN: 29, Cr: 1.9, eGFR:38. 06/04/2025: Labs reviewed and patient examined at the bedside. on 96% O2sat on NC2L. Patient lies comfortable on bed. WBC remarkable decline from 23.7 to 11.9, compared to yesterday. Currently waiting for urology consult. Urine on mendenhall bag is clear yellow. Current plan remains unchanged. Renal function improving. BUN:20, Cr:1.3, eGFR:>60 06/05/2025: Labs reviewed and patient examined at the bedside. Cystoscopy evaluation from urology noted that patient has BPH causing urinary retention and post-renal DIXON. Urology also noted presence of false passage in urethra that caused multiple mendenhall catheter insertion attpemps to fail. Patient planned for cardiac cath today. Was given 1L IVF with half NS 100ml/hr as patient was NPO since midnight and sodium was 146. Will continue to monitor. BUN:17, Cr:1.2, eGFR:>60, Urine Output:650ml Exam Vital Signs Temp Pulse Resp BP Pulse Ox O2 Del Method O2 Flow Rate 97.4 F 82 23 H 142/81 H 99 Nasal Cannula 2.5 06/05/25 08:00 06/05/25 08:00 06/05/25 08:00 06/05/25 08:00 06/05/25 08:00 06/05/25 08:00 06/05/25 08:00 FiO2 35 06/05/25 02:01 Narrative Exam General: well nourished, AAO x3 Eye: normal conjunctiva, no scleral icterus, pinpoint pupil HENT: Normocephalic, atraumatic, hearing intact to conversation at normal volume, moist oral mucosa Neck: Supple, non-tender, no JVD, no lymphadenopathy Lungs: Non-labored respirations, symmetric chest rise, Clear to auscultate bilaterally, No wheezing, rhonchi, crackles Heart: Peripheral pulses intact bilaterally, Regular Rate and Rhythm. Abdomen: Soft, non-tender, non-distended, no palpable masses, Suprapubic catheter placement Musculoskeletal: Normal range of motion and strength, No cyanosis or edema, No visible joint swelling Skin: Skin is warm, dry, no rashes or lesions. Psychiatric: Cooperative, appropriate mood and affect, Awake and alert Neuro: Cranial nerves II-XII grossly intact. Sensations intact to light touch. Objective Labs 06/06/25 04:40 06/06/25 04:40 Labs: Laboratory Results - last 24 hr 06/05/25 06/05/25 05:00 07:09 WBC 8.3 RBC 4.67 Hgb 12.9 L Hct 41.5 MCV 89 MCH 27.6 MCHC 31.1 RDW Std Deviation 46.3 H Plt Count 274 Neut % (Auto) 84 H Lymph % (Auto) [address] [place] % (Auto) 8 Eos % (Auto) 0 Baso % (Auto) 0 Neut # (Auto) 7.0 Lymph # (Auto) 0.[address] [place] # (Auto) 0.7 Eos # (Auto) 0.0 Baso # (Auto) 0.0 Immature Gran # (Auto) 0.02 H Absolute Nucleated RBC 0.02 H Immature Gran % 0 Nucleated RBC % 0 Sodium 146 H Potassium 4.5 D Chloride 104 Carbon Dioxide 37.1 H Anion Gap 5 L BUN 17 Creatinine 1.2 Estim Creat Clear Calc 86.0 eGFR > 60 BUN/Creatinine Ratio 14 Glucose 120 H Calculated Osmolality 293 Calcium 8.5 Corrected Calcium 8.7 Phosphorus 2.6 Magnesium 2.0 Total Bilirubin 0.5 AST 25 ALT 34 Alkaline Phosphatase 94 Total Protein 5.7 Albumin 3.8 Globulin 1.9 L Albumin/Globulin Ratio 2.0 ABG Interpretation ABG results: 06/01/25 06/01/25 06/01/25 09:46 10:08 14:16 ABG pH 7.23 L ABG pCO2 61 H ABG pO2 57 L* ABG HCO3 26 ABG O2 Saturation 87 L ABG Base Excess -3 VBG pH 7.26 L 7.29 L VBG pCO2 50 54 VBG pO2 45 75 H D VBG Base Excess -5 L -2 06/02/25 09:20 ABG pH 7.31 L ABG pCO2 53 H ABG pO2 95 D ABG HCO3 26 ABG O2 Saturation 98 ABG Base Excess -1 VBG pH VBG pCO2 VBG pO2 VBG Base Excess Quality Measures Quality Measures VTE prophylaxis Advance care planning discussed with:: patient and other Assessment & Plan Assessment Current Active Medications: Generic Name Dose Route Start Last Admin Trade Name Freq PRN Reason Stop Dose Admin Acetaminophen 650 mg 06/01/25 12:12 Acetaminophen 325 Mg Tablet PO 07/01/25 12:11 Q6H PRN Fever >101.4 Albuterol/Ipratropium 3 ml 06/01/25 12:12 Albuterol/Ipratropium (Duoneb) Rt [place] 3 Ml Nebu INH 07/01/25 12:11 Q6HR PRN SHORTNESS OF BREATH OR WHEEZE Aspirin 81 mg 06/02/25 19:00 06/05/25 09:09 Aspirin Ec 81 Mg Tabec PO 07/02/25 18:59 81 mg QDAY GERMAN Administration Atorvastatin Calcium 40 mg 06/04/25 21:00 06/04/25 20:39 Atorvastatin Calcium 20 Mg Tablet PO 07/04/25 20:59 40 mg HS GERMAN Administration Diazepam 2 mg 06/03/25 09:37 Diazepam Inj 5 Mg/Ml Vial 2 Ml IVP X1 PRN Anxiety/agitation before NM scan Escitalopram Oxalate 10 mg 06/02/25 13:15 06/05/25 09:00 Escitalopram Oxalate 10 Mg Tablet PO 07/02/25 13:14 Not Given QDAY GERMAN Ceftriaxone Sodium/Dextrose 1 gm in 50 mls @ 100 mls/hr 06/01/25 12:17 06/05/25 08:59 Rocephin/D5w 1gm Iv Premix IV 06/06/25 12:16 100 mls/hr QDAY GERMAN Administration Sodium Chloride 1,000 mls @ 100 mls/hr 06/05/25 08:08 06/05/25 09:00 Ns 0.45% IV 06/05/25 18:07 100 mls/hr .Q10H ONE Administration Olanzapine 5 mg 06/02/25 21:00 06/04/25 20:39 Olanzapine 5 Mg Tablet PO 07/02/25 20:59 5 mg HS GERMAN Administration Ondansetron HCl 4 mg 06/01/25 09:28 Ondansetron Inj 2 Mg/Ml Inj 2 Ml IVP 07/01/25 09:27 Q4HR PRN NAUSEA OR VOMITING Pantoprazole Sodium 40 mg 06/03/25 09:00 06/05/25 09:00 Pantoprazole 40 Mg Tablet PO 07/03/25 08:59 Not Given QDAY GERMAN Sennosides 1 tab 06/02/25 09:00 06/05/25 09:00 Senna Tablet PO 07/02/25 08:59 Not Given QDAY GERMAN Protocol Plan 65-year-old male with a past medical history of chronic back pain with subcutaneous infusion pump, depression/anxiety, GERD, migraines, sleep apnea, HLD, and on testosterone replacement therapy, presented to the hospital on 06/01/2025 due to altered mental status. Patient was admitted for DIXON and sepsis. Nephrology has been consulted for management of DIXON. #DIXON #2/2 pre-renal vs post renal urinary retention -In January 2025, patient's Cr:1.2, eGFR:67 -Upon admission, BP:80/50, BUN 24 , Cr 3.4 (Baseline of 1.2), eGFR 17 -DIXON could be secondary to pre-renal due to hypoperfusion vs post-renal due to urinary retention. -Cystoscopy evaluation from urology noted that patient has BPH causing urinary retention and post-renal DIXON, however pre-renal damage from CHF cannot be ruled out. -Suprapubic catheter is in place -Currently, BUN:17, Cr:1.2, eGFR:>60 Plan: -Continue to monitor renal function -Ordered random urine total protein, electrolytes, and creatinine -Avoid nephrotoxins -Renally dose medication -Was given 1L IVF with half NS 100ml/hr as patient was NPO since midnight and sodium was 146. #Hyperkalemia-Resolved -potassium of 3.7 this morning Plan: -Continue to monitor #Acute hypoxic respiratory failure #Acute hypercapnic respiratory failure #Sepsis 2/2 #Commune acquired pneumonia #Lactic acidosis, resolved #Leukocytosis #NSTEMI, type I versus type II #Elevated troponins #Methamphetamine use #GERD #Chronic pain s/p subcutaneous pump #Depression #Anxiety #Testosterone supplementation -Management per Primary Hospitalist team Thank you for allowing us to participate in the care of your patient. Assessment and plan discussed with my attending physician Dr.Vemuri Dr. Davis (PGY-1)- Internal medicine resident Attending Provider Attestation/Addendum Patient seen and examined with resident physician Dr. Davis. Note reviewed, agree with findings and recommendations. Patient currently seen in telemetry. DIXON most likely related to obstructive uropathy superimposed on prerenal azotemia. Patient has suprapubic catheter. Needs urology follow-up as an outpatient. Unable to place Mendenhall catheter in the ER. Hyperkalemia improved. Patient has good urine output. at bedside. Creatinine markedly improved. Cardiology on the case for elevated troponin-angiogram was done and showed no significant disease. Dr. Gautam did place a Mendenhall catheter. He is planning to remove the suprapubic catheter. Patient needs outpatient urology follow-up. Creatinine 1.2.
--- NOTE | 2025-06-05 09:50 | ESPR_ITS ---
<Statement entered by Sean Casas MD - 06/05/25 18:36> Patient is seen and examined at bedside. No acute overnight events. Vitals are stable. Labs done this morning showed significant improvement in the renal functions and WBC came to normal limits. Patient is taken for cardiac cath by cutter aluminum sheet Dr. Carter and noted to have no significant blockages. Urologist, Dr. Gautam was recommended that he is candelario come tomorrow to see the patient and will discharge after his visit. I have personally seen and examined the patient, agree with residents assessment and plan Patient plan of care was discussed with the attending physician, Dr. Miguel Casas, PGY2 Documentation for date of: 06/05/25 Subjective Subjective Interval history: Overnight events: No acute events overnight. Patient was seen and examined at bedside. AM vitals and labs reviewed. Patient continues to appear to be in a good mood today. Patient is aware of his name and birthday, but believes that it is June. Is able to correctly identify the year. Is able to identify his location, but is unsure what he he is in the hospital. Suprapubic catheter has been clamped. Bertrand catheter in place and successfully draining urine from bladder. WBC 8.3, sodium 146. Patient to receive cardiac catheterization today. Renal arteries without blockages noted. Can be discharged per cardiology standpoint. Pending urology to reassess Bertrand catheter and suprapubic catheter. Pending bowel movement. Discussed case with nephrology, who recommends half-normal saline. Review of systems otherwise negative except for what is mentioned above. Exam Vital Signs Temp Pulse Resp BP Pulse Ox O2 Del Method O2 Flow Rate 97.4 F 82 23 H 142/81 H 99 Nasal Cannula 2.5 06/05/25 08:00 06/05/25 08:00 06/05/25 08:00 06/05/25 08:00 06/05/25 08:00 06/05/25 08:00 06/05/25 08:00 FiO2 35 06/05/25 02:01 Narrative Exam Physical Exam: General: Alert, no acute distress. Skin: Warm, dry, intact. Head: Normocephalic, atraumatic. Eye: Normal conjunctiva, PERRL. Cardiovascular: Regular rate and rhythm, no murmur, +S1/S2. Respiratory: Lungs are clear to auscultation, respirations unlabored, no crackles, no wheezing. Gastrointestinal: Soft, nontender, distended. No guarding or rebound tenderness. Extremities: No edema, no cyanosis, no clubbing. Neuro: No focal deficits observed. Conversant, moving all extremities. No overt cerebellar signs/incoordination. Psychiatric: Cooperative, terse affect. : Suprapubic catheter in place, clamped. Bertrand catheter in place. Objective Labs 06/06/25 04:40 06/06/25 04:40 Labs: Laboratory Results - last 24 hr 06/05/25 06/05/25 05:00 07:09 WBC 8.3 RBC 4.67 Hgb 12.9 L Hct 41.5 MCV 89 MCH 27.6 MCHC 31.1 RDW Std Deviation 46.3 H Plt Count 274 Neut % (Auto) 84 H Lymph % (Auto) 7 L [place] % (Auto) 8 Eos % (Auto) 0 Baso % (Auto) 0 Neut # (Auto) 7.0 Lymph # (Auto) 0.6 L [place] # (Auto) 0.7 Eos # (Auto) 0.0 Baso # (Auto) 0.0 Immature Gran # (Auto) 0.02 H Absolute Nucleated RBC 0.02 H Immature Gran % 0 Nucleated RBC % 0 Sodium 146 H Potassium 4.5 D Chloride 104 Carbon Dioxide 37.1 H Anion Gap 5 L BUN 17 Creatinine 1.2 Estim Creat Clear Calc 86.0 eGFR > 60 BUN/Creatinine Ratio 14 Glucose 120 H Calculated Osmolality 293 Calcium 8.5 Corrected Calcium 8.7 Phosphorus 2.6 Magnesium 2.0 Total Bilirubin 0.5 AST 25 ALT 34 Alkaline Phosphatase 94 Total Protein 5.7 Albumin 3.8 Globulin 1.9 L Albumin/Globulin Ratio 2.0 ABG Interpretation ABG results: 06/01/25 06/01/25 06/01/25 09:46 10:08 14:16 ABG pH 7.23 L ABG pCO2 61 H ABG pO2 57 L* ABG HCO3 26 ABG O2 Saturation 87 L ABG Base Excess -3 VBG pH 7.26 L 7.29 L VBG pCO2 50 54 VBG pO2 45 75 H D VBG Base Excess -5 L -2 06/02/25 09:20 ABG pH 7.31 L ABG pCO2 53 H ABG pO2 95 D ABG HCO3 26 ABG O2 Saturation 98 ABG Base Excess -1 VBG pH VBG pCO2 VBG pO2 VBG Base Excess Quality Measures Quality Measures VTE prophylaxis Advance care planning discussed with:: patient and spouse Assessment & Plan Assessment Current Active Medications: Generic Name Dose Route Start Last Admin Trade Name Freq PRN Reason Stop Dose Admin Acetaminophen 650 mg 06/01/25 12:12 Acetaminophen 325 Mg Tablet PO 07/01/25 12:11 Q6H PRN Fever >101.4 Albuterol/Ipratropium 3 ml 06/01/25 12:12 Albuterol/Ipratropium (Duoneb) Rt Caridad 3 Ml Nebu INH 07/01/25 12:11 Q6HR PRN SHORTNESS OF BREATH OR WHEEZE Aspirin 81 mg 06/02/25 19:00 06/05/25 09:09 Aspirin Ec 81 Mg Tabec PO 07/02/25 18:59 81 mg QDAY GERMAN Administration Atorvastatin Calcium 40 mg 06/04/25 21:00 06/04/25 20:39 Atorvastatin Calcium 20 Mg Tablet PO 07/04/25 20:59 40 mg HS GERMAN Administration Diazepam 2 mg 06/03/25 09:37 Diazepam Inj 5 Mg/Ml Vial 2 Ml IVP X1 PRN Anxiety/agitation before NM scan Escitalopram Oxalate 10 mg 06/02/25 13:15 06/05/25 09:00 Escitalopram Oxalate 10 Mg Tablet PO 07/02/25 13:14 Not Given QDAY GERMAN Ceftriaxone Sodium/Dextrose 1 gm in 50 mls @ 100 mls/hr 06/01/25 12:17 06/05/25 08:59 Rocephin/D5w 1gm Iv Premix IV 06/06/25 12:16 100 mls/hr QDAY GERMAN Administration Sodium Chloride 1,000 mls @ 100 mls/hr 06/05/25 08:08 06/05/25 09:00 Ns 0.45% IV 06/05/25 18:07 100 mls/hr .Q10H ONE Administration Olanzapine 5 mg 06/02/25 21:00 06/04/25 20:39 Olanzapine 5 Mg Tablet PO 07/02/25 20:59 5 mg HS GERMAN Administration Ondansetron HCl 4 mg 06/01/25 09:28 Ondansetron Inj 2 Mg/Ml Inj 2 Ml IVP 07/01/25 09:27 Q4HR PRN NAUSEA OR VOMITING Pantoprazole Sodium 40 mg 06/03/25 09:00 06/05/25 09:00 Pantoprazole 40 Mg Tablet PO 07/03/25 08:59 Not Given QDAY [facility] Sennosides 1 tab 06/02/25 09:00 06/05/25 09:00 Senna Tablet PO 07/02/25 08:59 Not Given QDAY [facility] Protocol Plan Mr. Lizarraga is a 65-year-old male with a past medical history of chronic back pain with subcutaneous infusion pump, depression/anxiety, GERD, migraines, sleep apnea, HLD, and on testosterone replacement therapy who presented to [facility] ED on 06/01 for altered mental status. The patient was admitted for management of DIXON and sepsis. #NSTEMI, type I versus type II #Elevated troponins #Methamphetamine use #RV enlargement, suspected right heart strain #PE ruled out Patient does not have any chest pain and EKG negative for ST elevations, however patient was noted to have troponin of 1.973 in the ED. In ED, case was discussed with cardiology, who did not recommend heparin drip at that time. Patient is noted to have previous cardiac workup by [employer] in [place], including angiogram, all of which were negative per the family. Patient received one-time dose of aspirin 325 mg in ED. Cardiology noted that patient had RV enlargement and possible right heart strain on echo, suspicious for possible PE. ASCVD score 10.6 % risk of cardiovascular event (coronary or stroke or non-fatal TN or stroke) in next 10 years. Diagnostic: Repeat troponin 06/01 12:54 shows troponin 2.891 Troponin peaked at 4.285 on 06/01, decreased to 3.345 on 06/02 Urine toxicology positive for opiates and methamphetamine Echocardiogram ordered, pending official read, per cardiology shows RV enlargemnt and possible right heart strain V/Q mismatch scan ordered, negative for pulmonary embolism Plan: Cardiology consulted, appreciate recommendations Cardiac catheterization performed on 06/05, clean arteries noted without any blockages, patient cleared to be discharged per cardiology standpoint ASA 81 mg daily Atorvastatin 40 mg nightly #Acute encephalopathy, resolved #Acute hypoxic hypercapnic respiratory failure, resolving #Sepsis 2/2 #Commune acquired pneumonia #Lactic acidosis, resolved #Leukocytosis, resolved Patient presented with O2 sat of 88% on room air. In ED, it was noted that the patient had a blood pressure of 80/50, heart rate 107, respiratory rate 24, and WBC 26. Patient remains afebrile throughout ED course and family at bedside does not know any fevers, however patient was noted to be sweating the day before and the morning before coming to the ED. Additionally, patient was noted to have lactic acid of 4.2, which supports a picture of sepsis. Given the decreased O2 saturation, it is likely a community-acquired pneumonia, however CXR in the ED is negative. ABG was performed in ED, which showed elevated pCO2, so patient was started on BiPAP for CO2 retention. SIRS score 3 Diagnostic: Repeat lactic acid 06/01 is 2.0 Plan: Ceftriaxone 1 g daily (06/01 - 06/06) Azithromycin 500 mg daily (06/01 - 06/03) Continue BiPAP, wean off tolerated DuoNebs 3 mL inhaled every 6 hour as needed #DIXON, likely prerenal, resolved #CKD Patient noted to have been working out in the sun day before admission. On admission, the patient was noted to have creatinine of 3.7, which is increased from his baseline of 1.3. While patient is noted to have decent oral intake per family, his DIXON is most likely secondary to poor oral intake prior to being admitted. In ED, nephrology was consulted, who recommended continuing with IV fluid hydration. Diagnostic: Renal ultrasound ordered 06/01, shows multiple nonobstructing left renal calculi and moderate bilateral renal parenchyma scar formation, supportive of CKD Rx: Multiple liters of LR and NS Diagnostics: Ordered urine electrolytes, creatinine, and total protein, shows urine creatinine over 245, urine protein 165, urine random sodium 27.5, urine random potassium 85, and urine random chloride 49.4 Plan: Nephrology consulted, appreciate recommendations Avoid nephrotoxic drugs, renally dose medications Patient to follow up outpatient 1L / NS 06/05 #Urinary retention Attempted to place Bertrand catheter in patient as patient was noted to have 392 cc of volume in bladder on renal ultrasound. Was not able to successfully place catheter in initially in ED. Bladder scan a few hours later showed 562 cc of urine in bladder. Attempted additional attempts, but was unsuccessful. This may potentially be contributing to the altered mentation that was noted prior to coming to ED. Rx: Suprapubic catheter placed 06/01 Cystoscopy performed on 06/04, found prostamegaly with large median lobe false passage in the urethra Bertrand catheter placed 06/04 Plan: Consulted urology, appreciate recommendations Suprapubic catheter clamped 06/04, possible removal on 06/05 pending Bertrand catheter status #Hyperkalemia, resolved Patient noted to have potassium of 6.7 in ED. Patient given Kayexalate 30 mg p.o., albuterol 10 mg inhaled, and 10 units of insulin with 500 of D50 for management of hyperkalemia in ED Diagnostic: Repeat renal panel 06/01 12:54 shows potassium 4.7 Plan: Continue to monitor, will treat with hyperkalemia protocol if necessary #GERD Patient endorses a history of GERD and takes pantoprazole at home according to family. Plan: Protonix 40 mg twice daily GERD diet #Chronic pain s/p subcutaneous pump Patient is noted to have chronic pain that is managed with a subcutaneous pump that delivers morphine. This is likely for his back pain given 2 previous surgeries. Plan: Will continue to monitor, manage with pain medication as necessary #Depression #Anxiety Patient is noted to have a history of depression/anxiety. Per outside pharmacy data, patient appears to take escitalopram and olanzapine. Plan: Pending med rec Given altered mental status on admission, will hold medications for now #Testosterone supplementation Per patient's family and outside pharmacy data, patient is on testosterone supplementation. It is not entirely clear as to why. Plan: Patient to follow-up outpatient DVT Prophylaxis: Heparin GI Prophylaxis: Protonix Bowel: Senna Diet: GERD & cardiac Bertrand: N/A Lines: Peripheral IV Antibiotics: Ceftriaxone (06/01-06/06) & Azithromycin (06/01-06/03) Code Status: FULL Reason for Hospitalization: DIXON and sepsis Other Barriers to Discharge: Urology consult Patient plan of care was discussed with attending physician Dr. Rivera and senior resident Dr. Cassa (PGY-2) Rikki Alonzo, PGY1 Attending Provider Attestation/Addendum I have examined the patient, reviewed labs and imaging findings, discussed the case with the resident(s), and reviewed entered orders. I agree with the plan of care as outlined in this note, with these additional summaries/recommendations: Patient seen at bedside. No acute overnight events. Patient has no new symptoms to report today. Patient was found to have acute urinary retention on admission and after unsuccessful attempts to place Bertrand catheter, patient received suprapubic catheter. Patient underwent cystoscopy yesterday with urology with findings of prostatomegaly with a large median lobe false passage in the urethra. Bertrand catheter was placed and currently draining well. We will discuss removing suprapubic catheter with urology. Patient was found to have NSTEMI type II versus type I on admission. He will go for cardiac catheterization today with in-house cardiology. We will follow-up postprocedural recommendations. Continue IV antibiotics for community-acquired pneumonia. In-house nephrology following for DIXON on CKD. DIXON most likely secondary to to prerenal azotemia versus less likely postrenal from acute urinary retention. Continue IV fluids and avoid nephrotoxic agents. Renally dose medications. Renal function slowly improving. On admission there was concern for right heart strain on echocardiogram and high suspicion for pulmonary embolism. He was empirically started on heparin gtt which was discontinued as V/Q scan returned negative for perfusion deficit. Continue aspirin 81 mg p.o. daily & statin therapy. Continue CPAP at night for ANA. Patient updated on the plan and in agreement. All questions answered to satisfaction. Please see residents note for additional details and management. Dr. Miguel MD
--- NOTE | 2025-06-05 12:39 | ESPR_ITS ---
<Statement entered by Janette Carter MD - 06/07/25 14:11> I personally examined the patient evaluated underwent coronary angiogram cardiac catheterization showed nonobstructive coronary arteries recommend continue medical management. Initial elevated troponin secondary to sepsis and type II troponin. Documentation for date of: 06/05/25 Subjective Subjective Interval history: Patient seen today at the bedside found awake, alert, orientedx3. No overnight events reported. Vital signs stable at this time. Patient was taken to [facility] [employer] [facility] for left heart cath noted to have clean arteries no blockages noted, procedure was done with no complications, pending final report. From Cardiology standpoint can be discharged. Exam Vital Signs Temp Pulse Resp BP Pulse Ox O2 Del Method O2 Flow Rate 99.9 F 81 15 164/83 H 94 L Nasal Cannula 2 06/05/25 09:31 06/05/25 09:31 06/05/25 09:31 06/05/25 09:31 06/05/25 09:31 06/05/25 09:31 06/05/25 09:31 FiO2 35 06/05/25 02:01 Narrative Exam Physical Exam GENERAL: NAD, HEENT: dry mucosa. Eyes open, symmetrical, pin-point CARDIO: Heart RRR, no obvious murmurs PULM: No noted coughing/dyspnea CTA B/L, no R/W/R GI: Abdomen soft, nondistended, no pain on palpation. BSx4 SKIN/MSK/EXT: No wounds/rashes/edema/amputations, no pain on palpation. cold LE bilaterally diminished dorsalis pedis NEURO: AAOx3, no focal neuro deficits, able to move all 4 extremities Objective Labs 06/05/25 05:00 06/05/25 07:09 Labs: Laboratory Results - last 24 hr 06/05/25 06/05/25 05:00 07:09 WBC 8.3 RBC 4.67 Hgb 12.9 L Hct 41.5 MCV 89 MCH 27.6 MCHC 31.1 RDW Std Deviation 46.3 H Plt Count 274 Neut % (Auto) 84 H Lymph % (Auto) 7 L [place] % (Auto) 8 Eos % (Auto) 0 Baso % (Auto) 0 Neut # (Auto) 7.0 Lymph # (Auto) 0.6 L [place] # (Auto) 0.7 Eos # (Auto) 0.0 Baso # (Auto) 0.0 Immature Gran # (Auto) 0.02 H Absolute Nucleated RBC 0.02 H Immature Gran % 0 Nucleated RBC % 0 Sodium 146 H Potassium 4.5 D Chloride 104 Carbon Dioxide 37.1 H Anion Gap 5 L BUN 17 Creatinine 1.2 Estim Creat Clear Calc 86.0 eGFR > 60 BUN/Creatinine Ratio 14 Glucose 120 H Calculated Osmolality 293 Calcium 8.5 Corrected Calcium 8.7 Phosphorus 2.6 Magnesium 2.0 Total Bilirubin 0.5 AST 25 ALT 34 Alkaline Phosphatase 94 Total Protein 5.7 Albumin 3.8 Globulin 1.9 L Albumin/Globulin Ratio 2.0 ABG Interpretation ABG results: 06/01/25 06/01/25 06/01/25 09:46 10:08 14:16 ABG pH 7.23 L ABG pCO2 61 H ABG pO2 57 L* ABG HCO3 26 ABG O2 Saturation 87 L ABG Base Excess -3 VBG pH 7.26 L 7.29 L VBG pCO2 50 54 VBG pO2 45 75 H D VBG Base Excess -5 L -2 06/02/25 09:20 ABG pH 7.31 L ABG pCO2 53 H ABG pO2 95 D ABG HCO3 26 ABG O2 Saturation 98 ABG Base Excess -1 VBG pH VBG pCO2 VBG pO2 VBG Base Excess Quality Measures Quality Measures VTE prophylaxis Advance care planning discussed with:: patient and spouse Assessment & Plan Assessment Current Active Medications: Generic Name Dose Route Start Last Admin Trade Name Freq PRN Reason Stop Dose Admin Acetaminophen 650 mg 06/01/25 12:12 Acetaminophen 325 Mg Tablet PO 07/01/25 12:11 Q6H PRN Fever >101.4 Albuterol/Ipratropium 3 ml 06/01/25 12:12 Albuterol/Ipratropium (Duoneb) Rt Car[place] 3 Ml Nebu INH 07/01/25 12:11 Q6HR PRN SHORTNESS OF BREATH OR WHEEZE Amlodipine Besylate 5 mg 06/05/25 12:36 Amlodipine Besylate 5 Mg Tablet PO 06/05/25 12:37 X1 ONE Aspirin 81 mg 06/02/25 19:00 06/05/25 09:09 Aspirin Ec 81 Mg Tabec PO 07/02/25 18:59 81 mg QDAY [facility]ERMAN Administration Atorvastatin Calcium 40 mg 06/04/25 21:00 06/04/25 20:39 Atorvastatin Calcium 20 Mg Tablet PO 07/04/25 20:59 40 mg HS GERMAN Administration Diazepam 2 mg 06/03/25 09:37 Diazepam Inj 5 Mg/Ml Vial 2 Ml IVP X1 PRN Anxiety/agitation before NM scan Escitalopram Oxalate 10 mg 06/02/25 13:15 06/05/25 09:00 Escitalopram Oxalate 10 Mg Tablet PO 07/02/25 13:14 Not Given QDAY [facility]ERMAN Finasteride 5 mg 06/06/25 09:00 Finasteride 5 Mg Tablet PO 07/06/25 08:59 QDAY [facility] Ceftriaxone Sodium/Dextrose 1 gm in 50 mls @ 100 mls/hr 06/01/25 12:17 06/05/25 11:19 Rocephin/D5w 1gm Iv Premix IV 06/06/25 12:16 Infused QDAY [facility] Infusion Sodium Chloride 1,000 mls @ 100 mls/hr 06/05/25 08:08 06/05/25 09:00 Ns 0.45% IV 06/05/25 18:07 100 mls/hr .Q10H ONE Administration Olanzapine 5 mg 06/02/25 21:00 06/04/25 20:39 Olanzapine 5 Mg Tablet PO 07/02/25 20:59 5 mg HS GERMAN Administration Ondansetron HCl 4 mg 06/01/25 09:28 Ondansetron Inj 2 Mg/Ml Inj 2 Ml IVP 07/01/25 09:27 Q4HR PRN NAUSEA OR VOMITING Pantoprazole Sodium 40 mg 06/03/25 09:00 06/05/25 09:00 Pantoprazole 40 Mg Tablet PO 07/03/25 08:59 Not Given QDAY [facility] Sennosides 1 tab 06/02/25 09:00 06/05/25 09:00 Senna Tablet PO 07/02/25 08:59 Not Given QDAY [facility] Protocol Tamsulosin HCl 0.4 mg 06/06/25 09:00 Tamsulosin Hcl 0.4 Mg Capsule PO 07/06/25 08:59 QDAY [facility] Plan 65-year-old male with past medical history of sleep apnea, hyperlipidemia, low testosterone on TRT, chronic back pain on morphine pump, GERD, depression and anxiety who presented to the ED due to altered mental status. Admitted for sepsis, dixon, elevated troponins. Cardiology consulted. #NSTEMI type II #Pulmonary embolism-ruled out Patient denies chest pain or pressure time. Currently on Bipap EKG shows no acute ST elevations Troponin is elevated at 1.9, likely secondary to underlying sepsis Patient had previous cardiac work up with [facility] [employer] in [place], including angiogram all which were negative. Reviewed angiogram shows some plaque but no blockages. Wells score:3; moderate risk for PE; sedentary and heart rate > 100 V/Q scan negative for PE, US B/L LE negative for DVT Echo:Normal left ventricle function ejection fraction 50 to 55% with mild septal apical hypokinesis. Grade 1 diastolic dysfunction of the left ventricle. The RV size is moderately increased with normal systolic function. mild mitral regurgitation, mild tricuspid regurgitation with normal PA pressure. Left heart cath done found with clean arteries no blockages noted. pending final report. ? Can be discharged from cardiology standpoint #DIXON, likely prerenal #Hyperkalemia #GERD #Chronic pain s/p subcutaneous pump #Depression #Anxiety ?As per primary team Case discussed with my attending Dr. Raul Woods MD PGY-2 Disclaimer: Despite multiple revisions, due to the dictation software being used, the document bellow may not be free of grammatical errors including phonetic/typographic errors. However, this does not deter from our commitment to providing health care in the patient's best interest in mind.
--- NOTE | 2025-06-05 13:20 | PC.NURSE ---
1300 patient is awake, alert, breathing unlabored, s/p LHC under IV sedation, TR band present to right wrist, no bleeding or hematoma not ed. 20fr mendenhall catheter present and draining well, no blood clots noted. suprapubic catheter present and clamped at this time with no oputput. IV to right finger and left AC. Report received from Nadya CLARK. Nutrition department called to bring lunch tray that was ordered. 1314 Report given to Fatoumata CLARK. 1320 Nadya assume care of patient and will start removing Air from TR band
--- NOTE | 2025-06-05 13:25 | ESOP_ITS ---
RE: SHERRI VALENZUELA : 1960 DATE OF OPERATION: 06/05/2025 PROCEDURES PERFORMED: 1. Diagnostic left heart cardiac catheterization, selective coronary angiogram, left ventricular angiogram, CPT 60041. 2. Conscious sedation for 30 minutes duration. 3. Ultrasound-guided access of the right radial artery. DIAGNOSES: Coronary artery disease and elevated troponin levels. HISTORY AND INDICATIONS: The patient is a 65-year-old with a past medical history of hypertension and mild CAD, who was doing well until recently. He came to the hospital for urinary tract infection, acute kidney injury, and altered mental status. He was found to have elevated troponin levels that went up to 4.0. Negative EKGs. Possible type 2 myocardial infarction. Infection is controlled now and he is feeling well. Concerns were raised about possible progression of CAD. The patient was told to have mild CAD in the past. Hence, coronary angiogram was recommended. The patient is a candidate for intervention. DESCRIPTION OF PROCEDURE: The patient was brought to the cardiac catheterization laboratory. He was given 2 mg of Versed and 100 mcg of fentanyl for sedation. The right radial artery was cannulated by micropuncture technique. A 6-Luxembourger Glidesheath was introduced. Radial cocktail was given. A 5-Luxembourger TIG 4 diagnostic catheter was used to perform right and left coronary angiogram. Left heart catheterization and left ventricular angiogram was performed . Subsequently, hemostasis was secured by using a TR band. The patient tolerated the procedure well. No complications. HEMODYNAMICS: Left ventricular pressure is 120/10. Aortic pressure is 120/70. No gradient across the aortic valve. FINDINGS: Left ventricular angiogram shows normal left ventricular wall motion with an ejection fraction of 60%. Coronary angiogram showing following findings: Right coronary artery is small, nondominant, appears normal. Left coronary system: Left main coronary artery is normal. Left anterior descending artery appears normal. No significant stenosis. Left circumflex artery shows mild ostial plaque. No significant stenosis. Large and dominant, gives off PDA and posterolateral branches. SUMMARY OF FINDINGS: 1. Nonobstructive epicardial coronary arteries. 2. Normal left ventricular function. Ejection fraction is 60%. The patient was reassured that in the absence of significant obstructive coronary artery disease, the troponin elevation is a type 2 troponin elevation, not due to coronary artery disease. RECOMMENDATIONS: Continue medical management and no need for any antiplatelet drug therapy at this time. We will follow up as an outpatient. DT: 13:09:45 TT: 13:24:00 Ref: [id number] - TID: [id number]
[2025-06-05] MEDS: POLYETHYLENE GLYCOL 17 GM PACKET PO (15:36)
[2025-06-05] MEDS: ATORVASTATIN CALCIUM 20 MG TABLET 40 MG PO (20:06)
[2025-06-06] VITALS (7 sets, daily range): BP systolic 141–157; BP diastolic 78–94; PULSE 63–80; RESP 13–24; TEMP 35.9–36.1; O2SAT 90–99
[2025-06-06 05:25] LABS: Basophils # (Auto) 0.1 Thou/mm3 (0.0-0.2); Basophils % (Auto) 1 % (0-2.5); Eosinophils # (Auto) 0.1 Thou/mm3 (0.0-0.5); Eosinophils % (Auto) 1 % (0-10); Hematocrit 39.7 % (41.0-53.0); Hemoglobin 12.2 g/dL (13.5-16.0); Immature Granulocytes Auto 0.11 Thou/mm3 (0.00-0.00); Lymphocytes # (Auto) 1.7 Thou/mm3 (1.0-4.8); Lymphocytes % (Auto) 18 % (10-50); Mean Corpuscular HGB Conc 30.7 g/dl (31.0-37.0); Mean Corpuscular Hemoglobin 27.6 pg (25.0-35.0); Mean Corpuscular Volume 90 fL (80-100); Monocytes # (Auto) 1.2 Thou/mm3 (0.0-0.8); Monocytes % (Auto) 12 % (0-12); Neutrophils # (Auto) 6.4 Thou/mm3 (1.8-7.7); Neutrophils % (Auto) 67 % (37-80); Nucleated Red Blood Cell # 0.00 Thou/mm3 (0.00-0.00); Nucleated Red Blood Cell % 0 /100 WBC (0); Platelet Count 262 Thou/mm3 (140-440); RDW Standard Deviation 47.8 fL (35.1-43.9); Red Blood Count 4.42 Miln/mm3 (4.50-5.90); White Blood Count 9.5 Thou/mm3 (3.8-10.6)
[2025-06-06 05:48] LABS: Alanine Aminotransferase 39 U/L (10-49); Albumin, Serum 3.5 gm/dL (3.4-4.8); Albumin/Globulin Ratio 1.9 (1.2-2.2); Alkaline Phosphatase 86 U/L (46-116); Anion Gap 6 (7-16); Aspartate Amino Transferase 34 U/L (0-34); BUN/Creatinine Ratio 14 Ratio (12-20); Bilirubin,Total 0.3 mg/dL (0.3-1.2); Blood Urea Nitrogen 17 mg/dL (9-23); Calcium 8.3 mg/dL (8.3-10.6); Calcium (Corrected) 8.7 mg/dL (8.5-10.1); Carbon Dioxide 36.3 mMol/L (20.0-31.0); Chloride 103 mMol/L (98-107); Creatinine (Component) 1.2 mg/dL (0.6-1.3); Estimated Creatinine Clearance 85.1 mL/min (>60); Globulin 1.8 gm/dL (2.3-3.5); Glucose 122 mg/dL (74-106); Osmolality,Calculated 291 (275-295); Potassium 3.8 mMol/L (3.4-5.1); Sodium 145 mMol/L (136-145); Total Protein 5.3 gm/dL (5.7-8.2); eGFR > 60 See Note
--- NOTE | 2025-06-06 09:22 | ESPR_ITS ---
Documentation for date of: 06/06/25 Subjective Subjective Interval history: 65-year-old male with a past medical history of chronic back pain with subcutaneous infusion pump, depression/anxiety, GERD, migraines, sleep apnea, HLD, and on testosterone replacement therapy, presented to the hospital on 06/01/2025 due to altered mental staus. Patient was at [facility] at the time, there for most of the history was taken from patient?s . The day before admission, patient was complaining of excessive sweating and had 1 episode of vomiting after breakfast. On 06/01, patient remained unresponsive with pinpoint pupils, therefore, called ambulance. Per ED note, EMS was called and transfer and pumphouse operator chief that arrived on the scene noted GCS of 10. Patient was then brought to the ED by EMS, and EMS staff did note blood pressure of 80/50, heart rate 102, respiratory rate 20, and pulse ox 91% O2 saturation. After receiving 2 L of fluid bolus and being started on maintenance fluid, patient was noted to have significant improvement of altered mental status. Patient was admitted for DIXON and sepsis. Nephrology has been consulted for management of DIXON. ED course: Initial vitals were significant for blood pressure 80/50, heart rate 107, respiratory rate 24, and O2 saturation 88% on room air. Initial labs were significant for WBC 26.0, potassium 6.7, creatinine 3.7, lactic acid 4.2, troponin 1.973, and BNP 219. ABG showed pH of 7.23, pCO2 61, and pO2 57. VBG showed pH 7.26 and PaO2 77. Labs within normal limits noted to be ammonia and procalcitonin. Urinalysis negative. U tox positive for opiates and methamphetamine. EKG negative for ST elevations. CXR negative for pneumonia, CT head negative for acute processes. Gave patient 1 L LR and 1 L NS. Patient was started on BiPAP given high pCO2. Patient given Kayexalate 30 mg p.o., albuterol 10 mg inhaled, and 10 units of insulin with 500 of D50 for management of hyperkalemia. Consulted nephrology, who recommended continuing IV maintenance fluid and Mendenhall catheter insertion. Consulted draw operator, who recommended trending troponins, giving loading dose of aspirin, and deferring heparin drip for now. Past Surgical History: Sternum repair ( for ribs growing inwards , 9 to 15 years old), left rotator cuff repair, back surgery x 2, implantation of pain pump in right lower abdomen (morphine). Current Medication(s): Patient's family is unsure, pending med rec. Allergies (w/ Reactions): Iodine and latex (hives) Family History: Noncontributory Alcohol Intake: Patient denies Tobacco/Vape Use: Patient denies Other Drug Use: Patient denies 06/02/2025: Labs reviewed and patient examined at the bedside. Patient is awake and alert and was able to interact with medical providers. However was on BiPAP. His was beside him and was able to provide us with the history. Placement of Mendenhall Catheter has been attempted due to urinary retention, but was unable to do so. Therefore, Suprapubic catheter has been placed. Potassium was high with 5.4. Kayexalate 30mg PO x1 was given. BP:118/72 BUN: 40, Cr:3.2, eGFR:21 06/03/2025: Labs reviewed and patient examined at the bedside. Patient lies comfortable in bed with O2sat 97% on NC 3L. Able to understand and interact with medical providers. Creatinine is downtrending. Great improvment in mental status. Renal US showed multiple nonobstructing left renal calculi and moderate bilateral renal parenchymal scar formation. Patient has no other complaints. Urine Output: 1.1 L BUN: 29, Cr: 1.9, eGFR:38. 06/04/2025: Labs reviewed and patient examined at the bedside. on 96% O2sat on NC2L. Patient lies comfortable on bed. WBC remarkable decline from 23.7 to 11.9, compared to yesterday. Currently waiting for urology consult. Urine on mendenhall bag is clear yellow. Current plan remains unchanged. Renal function improving. BUN:20, Cr:1.3, eGFR:>60 06/05/2025: Labs reviewed and patient examined at the bedside. Cystoscopy evaluation from urology noted that patient has BPH causing urinary retention and post-renal DIXON. Urology also noted presence of false passage in urethra that caused multiple mendenhall catheter insertion attpemps to fail. Patient planned for cardiac cath today. Was given 1L IVF with half NS 100ml/hr as patient was NPO since midnight and sodium was 146. Will continue to monitor. BUN:17, Cr:1.2, eGFR:>60, Urine Output:650ml 06/06/2025: Labs reviewed and patient examined at the bedside. Cardiac cath showed no presence of CAD with EF 60%. Likely type 2 troponemia. Patient will discuss next plan for his BPH with Dr. Hsieh, Urologist. BUN: 17, Cr:1.2, eGFR:>60. Stable to discharge in Nephrology standpoint. Exam Vital Signs Temp Pulse Resp BP Pulse Ox O2 Del Method O2 Flow Rate 96.6 F L 66 16 157/94 H 99 BiPAP 1 06/06/25 08:00 06/06/25 08:00 06/06/25 08:00 06/06/25 08:00 06/06/25 08:00 06/06/25 08:00 06/05/25 21:05 FiO2 35 06/06/25 03:25 Narrative Exam General: well nourished, AAO x3 Eye: normal conjunctiva, no scleral icterus, pinpoint pupil HENT: Normocephalic, atraumatic, hearing intact to conversation at normal volume, moist oral mucosa Neck: Supple, non-tender, no JVD, no lymphadenopathy Lungs: Non-labored respirations, symmetric chest rise, Clear to auscultate bilaterally, No wheezing, rhonchi, crackles Heart: Peripheral pulses intact bilaterally, Regular Rate and Rhythm. Abdomen: Soft, non-tender, non-distended, no palpable masses. Musculoskeletal: Normal range of motion and strength, No cyanosis or edema, No visible joint swelling Skin: Skin is warm, dry, no rashes or lesions. Psychiatric: Cooperative, appropriate mood and affect, Awake and alert Neuro: Cranial nerves II-XII grossly intact. Sensations intact to light touch. Objective Labs 06/06/25 04:40 06/06/25 04:40 Labs: Laboratory Results - last 24 hr 06/06/25 04:40 WBC 9.5 RBC 4.42 L Hgb 12.2 L Hct 39.7 L MCV 90 MCH 27.6 MCHC 30.7 L RDW Std Deviation 47.8 H Plt Count 262 Neut % (Auto) 67 Lymph % (Auto) 18 Wilson % (Auto) 12 Eos % (Auto) 1 Baso % (Auto) 1 Neut # (Auto) 6.4 Lymph # (Auto) 1.7 Wilson # (Auto) 1.2 H Eos # (Auto) 0.1 Baso # (Auto) 0.1 Immature Gran # (Auto) 0.11 H Absolute Nucleated RBC 0.00 Immature Gran % 1 H Nucleated RBC % 0 Sodium 145 Potassium 3.8 D Chloride 103 Carbon Dioxide 36.3 H Anion Gap 6 L BUN 17 Creatinine 1.2 Estim Creat Clear Calc 85.1 eGFR > 60 BUN/Creatinine Ratio 14 Glucose 122 H Calculated Osmolality 291 Calcium 8.3 Corrected Calcium 8.7 Total Bilirubin 0.3 AST 34 ALT 39 Alkaline Phosphatase 86 Total Protein 5.3 L Albumin 3.5 Globulin 1.8 L Albumin/Globulin Ratio 1.9 ABG Interpretation ABG results: 06/01/25 06/01/25 06/01/25 09:46 10:08 14:16 ABG pH 7.23 L ABG pCO2 61 H ABG pO2 57 L* ABG HCO3 26 ABG O2 Saturation 87 L ABG Base Excess -3 VBG pH 7.26 L 7.29 L VBG pCO2 50 54 VBG pO2 45 75 H D VBG Base Excess -5 L -2 06/02/25 09:20 ABG pH 7.31 L ABG pCO2 53 H ABG pO2 95 D ABG HCO3 26 ABG O2 Saturation 98 ABG Base Excess -1 VBG pH VBG pCO2 VBG pO2 VBG Base Excess Quality Measures Quality Measures VTE prophylaxis Advance care planning discussed with:: patient and other Assessment & Plan Assessment Current Active Medications: Generic Name Dose Route Start Last Admin Trade Name Freq PRN Reason Stop Dose Admin Acetaminophen 650 mg 06/01/25 12:12 Acetaminophen 325 Mg Tablet PO 07/01/25 12:11 Q6H PRN Fever >101.4 Albuterol/Ipratropium 3 ml 06/01/25 12:12 Albuterol/Ipratropium (Duoneb) Rt Caridad 3 Ml Nebu INH 07/01/25 12:11 Q6HR PRN SHORTNESS OF BREATH OR WHEEZE Aspirin 81 mg 06/02/25 19:00 06/05/25 09:09 Aspirin Ec 81 Mg Tabec PO 07/02/25 18:59 81 mg QDAY GERMAN Administration Atorvastatin Calcium 40 mg 06/04/25 21:00 06/05/25 20:06 Atorvastatin Calcium 20 Mg Tablet PO 07/04/25 20:59 40 mg HS GERMAN Administration Diazepam 2 mg 06/03/25 09:37 Diazepam Inj 5 Mg/Ml Vial 2 Ml IVP X1 PRN Anxiety/agitation before NM scan Escitalopram Oxalate 10 mg 06/02/25 13:15 06/05/25 09:00 Escitalopram Oxalate 10 Mg Tablet PO 07/02/25 13:14 Not Given QDAY GERMAN Finasteride 5 mg 06/06/25 09:00 Finasteride 5 Mg Tablet PO 07/06/25 08:59 QDAY [facility] Ceftriaxone Sodium/Dextrose 1 gm in 50 mls @ 100 mls/hr 06/01/25 12:17 06/05/25 11:19 Rocephin/D5w 1gm Iv Premix IV 06/06/25 12:16 Infused QDAY [facility] Infusion Losartan Potassium 25 mg 06/06/25 09:00 Losartan Potassium 25 Mg Tablet PO 07/06/25 08:59 QDAY [facility] Olanzapine 5 mg 06/02/25 21:00 06/05/25 20:06 Olanzapine 5 Mg Tablet PO 07/02/25 20:59 5 mg HS GERMAN Administration Ondansetron HCl 4 mg 06/01/25 09:28 Ondansetron Inj 2 Mg/Ml Inj 2 Ml IVP 07/01/25 09:27 Q4HR PRN NAUSEA OR VOMITING Pantoprazole Sodium 40 mg 06/03/25 09:00 06/05/25 09:00 Pantoprazole 40 Mg Tablet PO 07/03/25 08:59 Not Given QDAY [facility] Sennosides 1 tab 06/02/25 09:00 06/05/25 09:00 Senna Tablet PO 07/02/25 08:59 Not Given QDAY [facility] Protocol Tamsulosin HCl 0.4 mg 06/06/25 09:00 Tamsulosin Hcl 0.4 Mg Capsule PO 07/06/25 08:59 QDAY [facility] Plan 65-year-old male with a past medical history of chronic back pain with subcutaneous infusion pump, depression/anxiety, GERD, migraines, sleep apnea, HLD, and on testosterone replacement therapy, presented to the hospital on 06/01/2025 due to altered mental status. Patient was admitted for DIXON and sepsis. Nephrology has been consulted for management of DIXON. #DIXON #2/2 pre-renal vs post renal urinary retention -In January 2025, patient's Cr:1.2, eGFR:67 -Upon admission, BP:80/50, BUN 24 , Cr 3.4 (Baseline of 1.2), eGFR 17 -DIXON could be secondary to pre-renal due to hypoperfusion vs post-renal due to urinary retention. -Cystoscopy evaluation from urology noted that patient has BPH causing urinary retention and post-renal DIXON, however pre-renal damage from CHF cannot be ruled out. -Suprapubic catheter is in place -Currently, BUN:17, Cr:1.2, eGFR:>60 Plan: -Continue to monitor renal function -Ordered random urine total protein, electrolytes, and creatinine -Avoid nephrotoxins -Renally dose medication #Hyperkalemia-Resolved -potassium of 3.8 this morning Plan: -Continue to monitor #Acute hypoxic respiratory failure #Acute hypercapnic respiratory failure #Sepsis 2/2 #Commune acquired pneumonia #Lactic acidosis, resolved #Leukocytosis #NSTEMI, type I versus type II #Elevated troponins #Methamphetamine use #GERD #Chronic pain s/p subcutaneous pump #Depression #Anxiety #Testosterone supplementation -Management per Primary Hospitalist team Thank you for allowing us to participate in the care of your patient. Patient is stable in nephrology standpoint. No further recommendations. Assessment and plan discussed with my attending physician Dr. Sonia Davis (PGY-1)- Internal medicine resident Attending Provider Attestation/Addendum patient currently seen and examined with resident physician Dr. Davis. Note reviewed, agree with findings and recommendations. Patient with Mendenhall catheter inserted by Dr. Gautam. Suprapubic catheter was removed. Creatinine improved. Spoke to [id number] with urology. Renal neville stable for discharge.
--- NOTE | 2025-06-06 09:33 | PC.SS ---
Follow up note: Possible d/c home. Pending Dr. Gonzalez's recommendations.
[2025-06-06] MEDS: cefTRIAXone/D5w 1gm IV premix 1 GM/50 ML BAG IV (09:37)
[2025-06-06] MEDS: ASPIRIN EC 81 MG TABEC PO (09:40)
[2025-06-06] MEDS: TAMSULOSIN HCL 0.4 MG CAPSULE PO (09:40)
[2025-06-06] MEDS: ESCITALOPRAM OXALATE 10 MG TABLET PO (09:41)
[2025-06-06] MEDS: PANTOPRAZOLE 40 MG TABLET PO (09:42)
[2025-06-06] MEDS: LOSARTAN POTASSIUM 25 MG TABLET PO (09:43)
[2025-06-06] MEDS: FINASTERIDE 5 MG TABLET PO (09:49)
--- NOTE | 2025-06-06 11:18 | PC.CC ---
hh ref sent out, waiting for responses
[2025-06-06] MEDS: NALOXEGOL OXALATE 25 MG TABLET (NON-FORMULARY) PO (13:02)
[2025-06-06] MEDS: LACTULOSE SYRUP 20 GM/30 ML UDC 30 GM PO (13:02)
[2025-06-06] MEDS: POLYETHYLENE GLYCOL 17 GM PACKET PO (13:02)
--- NOTE | 2025-06-06 14:53 | ESDS_ITS ---
Planned Discharge Date 06/06/25 DS: Providers Provider Date of admission: 06/01/25 12:12 Primary care physician: Shaheed Scanlon NP Admitting Provider: Estevan Wagner MD Attending Provider on Admission: Curtis Rivera MD Consults: 06/01/25 11:02 Consult to Nephrology Stat Comment: DIXON Consulting Provider: Galileo Scott 06/01/25 11:03 Consult to Cardiology Stat Comment: Consulting Provider: Janette Carter 06/02/25 11:58 Consult to Urology Routine Comment: Urinary retention, couldn't Bertrand, now suprapubic Consulting Provider: Brittnee Hsieh 06/03/25 10:57 Referral Physical Therapy Routine Comment: Physician Instructions: Attending Provider on DC: Sean Casas MD Discharging Provider: Sean Casas MD DS: Diagnosis Problem List Completed Was Problem List Reviewed/Reconciled?: Yes Hospital Course Hospital Course Hospital course: A 65-year-old male with significant past medical history of chronic back pain on subcutaneous morphine infusion pump, patient controlled analgesia, bipolar disorder, GERD, migraines, sleep apnea, occasionally uses CPAP, hyperlipidemia, testosterone replacement therapy, extensive history of allergies brought to the hospital on 06/01/2025 for altered mental status and admitted for sepsis and acute kidney injury. Hospital course: Vitals at the time of admission are blood pressure 80/50 mmHg, heart rate 102, respiratory rate 20, SpO2 91%. Received 2 L of fluid and noted improvement in the mental status. Patient was started on BiPAP in view of CO2 retention on AB G. Labs at the time of admission are significant for WBC 26, potassium 6.7, creatinine 3.7, lactate 4.2, troponin 1.97, BNP 219. Procalcitonin is within normal limit. EKG did not show any acute ST-T wave changes. CT head did not show any significant abnormality. Patient received hyperkalemic treatment in the ED. Cardiology is consulted in view of elevated troponin. Nephrology is consulted in view of DIXON. Patient was started on antibiotics, ceftriaxone and azithromycin. BiPAP at bedtime. IV fluids were given in view of DIXON. Patient was slowly weaned off oxygen, kidney functions returned to his baseline. Echo done during the hospitalization showed evidence of right ventricular enlargement possible strain and suspected pulmonary embolism by the cardiology team for which ventilation/perfusion scan, Doppler of bilateral lower extremity was done and the studies were negative for pulmonary embolism. Patient was on heparin drip for short period of time. Cardiac cath was done on 05/29/2025 and noted to have nonobstructive epicardial coronary arteries. Normal LV function and ejection fraction of 68%. At the time of admission, patient is noted to have acute urinary retention for which suprapubic catheter was placed by the ED doctor and urologist, Dr. Hsieh was consulted who did cystoscopy and noted to have enlarged tortuous prostatic urethra with a very large median lobe enlargement, false passage is also noted. Bladder Bertrand catheter was placed by Dr. Hsieh suprapubic catheter is removed on 06/05/2025 and patient noted to have good urinary output through the Bertrand catheter. Dr. Gautam was recommended to keep the Bertrand catheter in situ and follow-up on outpatient basis. Patient was started on finasteride and tamsulosin. Patient is discharged to home with the following medications and recommendations Please take finasteride 5 mg tablet by mouth daily and tamsulosin 0.4 mg capsule by mouth daily for enlarged prostate Please attempt voiding trial in one week and remove Bertrand catheter; if voiding trial fails please go directly to ED. Recommended to take losartan 25mg once daily and monitor blood pressures at home and follow up with PCP Stop taking all allergy medications and follow-up with your hse specialist; you should not take all those allergy medications together Continue all other home medications as prescribed Please follow-up with your PCP within 1 week or follow-up with [facility] [address] [place] [address] If your symptoms worsen or if you develop new chest pain, shortness of breath, dizziness, severe abdominal pain or bleeding - please come back to the ED immediately. Patient plan of care was discussed with the attending physician, Dr. Miguel Casas, PGY2 Time Spent with Patient Time attestation: Total time spent providing and/or coordinating discharge services: Time spent: Greater than 30 minutes Home Health Home Health Referral Orders: 06/06/25 10:00 Home Health Referral Routine Reason For Exam: Physical therapy Home-Bound The patient must either because of illness or injury, need the aid of supportive devices such as crutches, canes, wheelchairs, and walkers; the use of special transportation; or the assistance of another person in order to leave their place of residence; OR have a condition such that leaving his or her home is medically contraindicated. In addition, the patient also meets the following criteria: patient is normally unable to leave the home and leaving home requires considerable taxing effort. Addendum to Home Health Certification Practitioner's Certification: I certify that the patient has been under my care in the hospital and the care of attending physician (see below). We had a [id number] encounter on (see date below). My clinical findings indicate that the patient is home bound per the above criteria and the Home Health Services noted in these orders are medically necessary. The primary reason for the [id number] encounter is related to the fact that the patient requires home health services. Date Certifying [id number] Physician Encounter: 06/01/25 Physician's Name who will Assume Oversight for Services: Shaheed Scanlon Physician's Phone No.who will Assume Oversight for Service: [employer]ION SUPERVISOR - Community Resources: No PT to Evaluate: Yes PT to evaluate and provide a treatmnet plan to increase patient's mobility and strength. Wound Care: No IV Therapy: No RN Safety Evaluation: Yes RN to evaluate and create a plan of care that will produce positive outcomes. Palliative Treatment: No Palliative treatment and evaluate the need for hospice. Home Health Aide - Personal Care: No Home Health Aide to assist with any ADL's. Exam Vital Signs Temp Pulse Resp BP Pulse Ox O2 Del Method O2 Flow Rate 96.9 F 80 15 141/84 H 90 L Room Air 1 06/06/25 12:06/06/25 12:06/06/25 12:06/06/25 12:06/06/25 12:06/06/25 12:06/05/25 21:05 FiO2 35 06/06/25 03:25 Narrative Exam General: Awake. HEENT: Normocephalic, atraumatic, mucous membranes moist. Heart: Regular rate and rhythm, no murmurs. Lungs: Clear to auscultation with no wheezing or crackles. Abdomen: Soft, nondistended, nontender, positive bowel sounds. ?No guarding or rebound tenderness. Neurologic: Alert and oriented x3, no gross neurological deficit, and patient able to move all 4 extremities. Extremities: No edema. Skin: No rash or ecchymoses. Discharge Plan Plan Patient Disposition: Home w/HOME HEALTH Patient condition on transfer: Stable Care Plan Goals: Please take finasteride 5 mg tablet by mouth daily and tamsulosin 0.4 mg capsule by mouth daily for enlarged prostate Please attempt voiding trial in one week and remove Bertrand catheter; if voiding trial fails please go directly to ED. Recommended to take losartan 25mg once daily and monitor blood pressures at home and follow up with PCP Stop taking all allergy medications and follow-up with your hse specialist; you should not take all those allergy medications together Continue all other home medications as prescribed Please follow-up with your PCP within 1 week or follow-up with [facility] [address] [place] [address] If your symptoms worsen or if you develop new chest pain, shortness of breath, dizziness, severe abdominal pain or bleeding - please come back to the ED immediately. Prescriptions/Referrals Prescriptions/Med Rec: New tamsulosin 0.4 mg Capsule 0.4 mg PO QDAY 30 Days Qty: 30 0RF finasteride 5 mg Tablet 5 mg PO QDAY 30 Days Qty: 30 0RF losartan 25 mg tablet 25 mg PO QDAY Qty: 30 2RF Continued pantoprazole 40 mg tablet,delayed release (DR/EC) 40 mg PO QDAY Patient Comments: TAKE 1 TABLET BY MOUTH EVERY DAY escitalopram oxalate 10 mg tablet 10 mg PO QDAY Patient Comments: TAKE 1 TABLET BY MOUTH EVERY DAY Emgality Pen 120 mg/mL pen injector 120 mg SUBCUT QMONTH Patient Comments: INJECT 1 MG SUBCUTANEOUSLY MONTHLY TO THIGH , OUTER UPPER ARM, BUTTOCKS OR ABDOMINE olanzapine 5 mg tablet 5 mg PO HS Patient Comments: TAKE 1 TABLET BY MOUTH AT NIGHT TIME rosuvastatin 20 mg tablet 20 mg PO QDAY Patient Comments: TAKE 1 TABLET BY MOUTH EVERY DAY alum-mag hydroxide-simeth 400-400-40 mg/5 mL suspension 10 ml PO Q6H PRN (Reason: indigestion) ipratropium bromide 42 mcg (0.06 %) spray,non-aerosol 2 spray INTRANASAL QDAY Patient Comments: SPRAY 2 SPRAYS INTO EACH NOSTRIL ONCE A DAY ondansetron 4 mg tablet,disintegrating 4 mg PO Q8H PRN (Reason: nausea and vomiting) testosterone cypionate 200 mg/mL oil 200 mg SUBCUT Q14D Patient Comments: INJECT 1 MILLILITER INTRAMUSCULARLY WEEKLY Discontinued azelastine 137 mcg (0.1 %) spray,non-aerosol 2 spray INTRANASAL Q12H PRN (Reason: allergy symptoms) Patient Comments: USE 2 SPRAYS INTO EACH NOSTRIL TWICE A DAY fexofenadine 30 mg tablet,disintegrating 30 mg PO DAILY PRN (Reason: allergy symptoms) loratadine [Claritin] 10 mg tablet 10 mg PO Q24H PRN (Reason: allergy symptoms) levocetirizine 5 mg tablet 5 mg PO QPM ipratropium bromide 21 mcg (0.03 %) spray,non-aerosol 2 spray intranasal BID Rx Instructions: administer into each nostril oxymetazoline [Afrin (oxymetazoline)] 0.05 % spray,non-aerosol 2 spray intranasal BID Zyrtec 10 mg capsule 10 mg PO QDAY PRN (Reason: allergy symptoms) Referrals: Brittnee Hsieh MD [Physician, Urology] Shaheed Scanlon NP [Primary Care Provider] Patient/Caregiver Discharge Instructions Other Discharge Activity Instructions:: Please take finasteride 5 mg tablet by mouth daily and tamsulosin 0.4 mg capsule by mouth daily for enlarged prostate Please attempt voiding trial in one week and remove Bertrand catheter; if voiding trial fails please go directly to ED. Recommended to take losartan 25mg once daily and monitor blood pressures at home and follow up with PCP Stop taking all allergy medications and follow-up with your hse specialist; you should not take all those allergy medications together Continue all other home medications as prescribed Please follow-up with your PCP within 1 week or follow-up with [facility] [address] [place] [address] If your symptoms worsen or if you develop new chest pain, shortness of breath, dizziness, severe abdominal pain or bleeding - please come back to the ED immediately. Education Materials: Preventing Surgical Site Infections, Cardiac Cath Transradial Print Language: Syriac Stand Alone Forms: Henrietta Award Info., Patient Portal Info Letter Discharge Order Discharge Orders: Discharge (Routine); Ordered 06/06/25 Ordered By: Wyatt Mcginnis Quality Discharge Quality Measures VTE prophylaxis MD Attestestation MD Attestation I have examined the patient, reviewed labs and imaging findings, discussed the case with the resident(s), and reviewed entered orders. I agree with the plan of care as outlined in this note. Time Spent: [address] Miguel MD
--- NOTE | 2025-06-06 15:29 | ESPR_ITS ---
<Statement entered by Janette Carter MD - 06/07/25 14:06> I evaluated the patient examined patient is doing quite well plan to be discharged today patient did have coronary angiogram showed negative angiogram suggesting that troponin elevation is secondary to sepsis patient clinically doing well no other issues. Evaluated the patient with resident physician Dr. Woods PGY2 agree with the treatment plan recommendations documented will monitor the patient as an outpatient following discharge Documentation for date of: 06/06/25 Subjective Subjective Interval history: Patient seen today at the bedside found awake, alert, orientedx3. No overnight events reported. Vital signs stable at this time. No active complaints at this time. From cardiology standpoint is clear for discharge. No need for antiplatelet therapy as patient has no CAD. Exam Vital Signs Temp Pulse Resp BP Pulse Ox O2 Del Method O2 Flow Rate 96.9 F 80 15 141/84 H 90 L Room Air 1 06/06/25 12:00 06/06/25 12:00 06/06/25 12:00 06/06/25 12:00 06/06/25 12:00 06/06/25 12:00 06/05/25 21:05 FiO2 35 06/06/25 03:25 Narrative Exam Physical Exam GENERAL: NAD, HEENT: dry mucosa. Eyes open, symmetrical CARDIO: Heart RRR, no obvious murmurs PULM: No noted coughing/dyspnea CTA B/L, no R/W/R GI: Abdomen soft, nondistended, no pain on palpation. BSx4 SKIN/MSK/EXT: No wounds/rashes/edema/amputations, no pain on palpation. cold LE bilaterally diminished dorsalis pedis NEURO: AAOx3, no focal neuro deficits, able to move all 4 extremities Objective Labs 06/06/25 04:40 06/06/25 04:40 Labs: Laboratory Results - last 24 hr 06/06/25 04:40 WBC 9.5 RBC 4.42 L Hgb 12.2 L Hct 39.7 L MCV 90 MCH 27.6 MCHC 30.7 L RDW Std Deviation 47.8 H Plt Count 262 Neut % (Auto) 67 Lymph % (Auto) 18 [place] % (Auto) 12 Eos % (Auto) 1 Baso % (Auto) 1 Neut # (Auto) 6.4 Lymph # (Auto) 1.7 [place]kin # (Auto) 1.2 H Eos # (Auto) 0.1 Baso # (Auto) 0.1 Immature Gran # (Auto) 0.11 H Absolute Nucleated RBC 0.00 Immature Gran % 1 H Nucleated RBC % 0 Sodium 145 Potassium 3.8 D Chloride 103 Carbon Dioxide 36.3 H Anion Gap 6 L BUN 17 Creatinine 1.2 Estim Creat Clear Calc 85.1 eGFR > 60 BUN/Creatinine Ratio 14 Glucose 122 H Calculated Osmolality 291 Calcium 8.3 Corrected Calcium 8.7 Total Bilirubin 0.3 AST 34 ALT 39 Alkaline Phosphatase 86 Total Protein 5.3 L Albumin 3.5 Globulin 1.8 L Albumin/Globulin Ratio 1.9 ABG Interpretation ABG results: 06/01/25 06/01/25 06/01/25 09:46 10:08 14:16 ABG pH 7.23 L ABG pCO2 61 H ABG pO2 57 L* ABG HCO3 26 ABG O2 Saturation 87 L ABG Base Excess -3 VBG pH 7.26 L 7.29 L VBG pCO2 50 54 VBG pO2 45 75 H D VBG Base Excess -5 L -2 06/02/25 09:20 ABG pH 7.31 L ABG pCO2 53 H ABG pO2 95 D ABG HCO3 26 ABG O2 Saturation 98 ABG Base Excess -1 VBG pH VBG pCO2 VBG pO2 VBG Base Excess Quality Measures Quality Measures VTE prophylaxis Advance care planning discussed with:: patient Assessment & Plan Assessment Current Active Medications: Generic Name Dose Route Start Last Admin Trade Name Freq PRN Reason Stop Dose Admin Acetaminophen 650 mg 06/01/25 12:12 Acetaminophen 325 Mg Tablet PO 07/01/25 12:11 Q6H PRN Fever >101.4 Albuterol/Ipratropium 3 ml 06/01/25 12:12 Albuterol/Ipratropium (Duoneb) Rt Caridad 3 Ml Nebu INH 07/01/25 12:11 Q6HR PRN SHORTNESS OF BREATH OR WHEEZE Aspirin 81 mg 06/02/25 19:00 06/06/25 09:40 Aspirin Ec 81 Mg Tabec PO 07/02/25 18:59 81 mg QDAY GERMAN Administration Atorvastatin Calcium 40 mg 06/04/25 21:00 06/05/25 20:06 Atorvastatin Calcium 20 Mg Tablet PO 07/04/25 20:59 40 mg HS GERMAN Administration Diazepam 2 mg 06/03/25 09:37 Diazepam Inj 5 Mg/Ml Vial 2 Ml IVP X1 PRN Anxiety/agitation before NM scan Escitalopram Oxalate 10 mg 06/02/25 13:15 06/06/25 09:41 Escitalopram Oxalate 10 Mg Tablet PO 07/02/25 13:14 10 mg QDAY GERMAN Administration Finasteride 5 mg 06/06/25 09:00 06/06/25 09:49 Finasteride 5 Mg Tablet PO 07/06/25 08:59 5 mg QDAY GERMAN Administration Losartan Potassium 25 mg 06/06/25 09:00 06/06/25 09:43 Losartan Potassium 25 Mg Tablet PO 07/06/25 08:59 25 mg QDAY GERMAN Administration Olanzapine 5 mg 06/02/25 21:00 06/05/25 20:06 Olanzapine 5 Mg Tablet PO 07/02/25 20:59 5 mg HS GERMAN Administration Ondansetron HCl 4 mg 06/01/25 09:28 Ondansetron Inj 2 Mg/Ml Inj 2 Ml IVP 07/01/25 09:27 Q4HR PRN NAUSEA OR VOMITING Pantoprazole Sodium 40 mg 06/03/25 09:00 06/06/25 09:42 Pantoprazole 40 Mg Tablet PO 07/03/25 08:59 40 mg QDAY GERMAN Administration Sennosides 1 tab 06/02/25 09:00 06/06/25 09:49 Senna Tablet PO 07/02/25 08:59 1 tab QDAY GERMAN Administration Protocol Tamsulosin HCl 0.4 mg 06/06/25 09:00 06/06/25 09:40 Tamsulosin Hcl 0.4 Mg Capsule PO 07/06/25 08:59 0.4 mg QDAY GERAMN Administration Plan 65-year-old male with past medical history of sleep apnea, hyperlipidemia, low testosterone on TRT, chronic back pain on morphine pump, GERD, depression and anxiety who presented to the ED due to altered mental status. Admitted for sepsis, dixon, elevated troponins. Cardiology consulted. #NSTEMI type II #Pulmonary embolism-ruled out Patient denies chest pain or pressure time. Currently on Bipap EKG shows no acute ST elevations Troponin is elevated at 1.9, likely secondary to underlying sepsis Patient had previous cardiac work up with [facility]iance [facility] in [place], including angiogram all which were negative. Reviewed angiogram shows some plaque but no blockages. Wells score:3; moderate risk for PE; sedentary and heart rate > 100 V/Q scan negative for PE, US B/L LE negative for DVT Echo:Normal left ventricle function ejection fraction 50 to 55% with mild septal apical hypokinesis. Grade 1 diastolic dysfunction of the left ventricle. The RV size is moderately increased with normal systolic function. mild mitral regurgitation, mild tricuspid regurgitation with normal PA pressure. Left Heart Cath findings: Nonobstructive epicardial coronary arteries. Normal left ventricular function. Ejection fraction is 60%. - No need for antiplatelet therapy ? Can be discharged from cardiology standpoint #DIXON, likely prerenal #Hyperkalemia #GERD #Chronic pain s/p subcutaneous pump #Depression #Anxiety ?As per primary team Case discussed with my attending Dr. Raul Woods MD PGY-2 Disclaimer: Despite multiple revisions, due to the dictation software being used, the document bellow may not be free of grammatical errors including phonetic/typographic errors. However, this does not deter from our commitment to providing health care in the patient's best interest in mind.
--- NOTE | 2025-06-07 16:21 | PC.CC ---
reached out to team b to finalize the dc summary for HH.
--- NOTE | 2025-06-08 07:12 | PC.CC ---
finalized dc summary sent to [facility]
== END 2025-06-06 15:29 | disposition home health service (06) | DRG 871 ==
LOC: SERX 12:34 → SERHOLD 15:30 → S2NX 15:33
PROVIDERS: Internal Medicine Cardiovascular Disease; Student in an Organized Health Care Education/Training Program; Urology; Admitting Provider Student in an Organized Health Care Education/Training Program; Emergency Provider Emergency Medicine; PCP Nurse Practitioner Family; Visit Provider Student in an Organized Health Care Education/Training Program
PROC: 0T7B8ZZ Dilation of Bladder, Via Natural or Artificial Opening Endoscopic (ICD-10-PCS; principal; 2025-06-04 13:15)
DX: A41.9 Sepsis, unspecified organism (principal); G93.41 Metabolic encephalopathy; I21.A1 Myocardial infarction type 2; J18.9 Pneumonia, unspecified organism; J96.01 Acute respiratory failure with hypoxia; J96.02 Acute respiratory failure with hypercapnia; N17.9 Acute kidney failure, unspecified; N13.8 Other obstructive and reflux uropathy; I13.0 Hypertensive heart and chronic kidney disease with heart failure and stage 1 through stage 4 chronic kidney disease, or unspecified chronic kidney disease; N39.0 Urinary tract infection, site not specified; E87.29 Other acidosis; F41.9 Anxiety disorder, unspecified; E78.5 Hyperlipidemia, unspecified; K21.9 Gastro-esophageal reflux disease without esophagitis; G89.29 Other chronic pain; F31.9 Bipolar disorder, unspecified; E87.5 Hyperkalemia; N18.9 Chronic kidney disease, unspecified; R33.9 Retention of urine, unspecified; N40.0 Benign prostatic hyperplasia without lower urinary tract symptoms; I25.10 Atherosclerotic heart disease of native coronary artery without angina pectoris; F15.10 Other stimulant abuse, uncomplicated; G47.33 Obstructive sleep apnea (adult) (pediatric); I45.10 Unspecified right bundle-branch block; I50.9 Heart failure, unspecified; N40.1 Benign prostatic hyperplasia with lower urinary tract symptoms; R33.8 Other retention of urine; R65.20 Severe sepsis without septic shock; Z91.040 Latex allergy status; Z79.82 Long term (current) use of aspirin; Z79.891 Long term (current) use of opiate analgesic; Z79.899 Other long term (current) drug therapy
CPT/HCPCS: 36415; 36600; 70450; 71045; 74018; 76770; 78582; 80053; 80061; 80069; 80307; 80320; 81001; 82140; 82375; 82436; 82550; 82570; 82803; 83036; 83605; 83735; 83880; 84100; 84133; 84145; 84156; 84300; 84439; 84443; 84484; 85025; 85610; 85730; 87040; 87086; 93005; 93306; 93970; 94640; 94660; 96361; 96365; 96375; 97162; 99152; 99285; A4217; A4649; A9539; A9540; C1769; C1887; C1894; J0456; J0461; J0692; J0696; J1100; J1580; J1643; J1644; J1815; J2250; J2312; J2371; J2405; J2470; J2704; J3010; J3360; J3490; J7030; J7050; J7120; Q9967; A9270; G0480; J1920; J2305

== ENCOUNTER 2025-06-18 19:14 | Inpatient (IN) | payer MEDICARE, BC, SELFPAY ==
[2025-06-18] VITALS (8 sets, daily range): BP systolic 108–136; BP diastolic 58–75; PULSE 93–123; RESP 18–94; TEMP 36.9–38.2; O2SAT 91–95; BMI 28.6
--- NOTE | 2025-06-18 19:58 | XR_ITS ---
Examination: AP chest single view Technique one AP portable upright chest single view Date and time: June 18, 2025, 2016 hrs., Comparison 06/03/2025 Indications: Chest pain today, sepsis alert Findings: Mild prominence left ventricle Mild elevation right hemidiaphragm. Mild prominent central pulmonary arteries. No lobar pneumonia or pulmonary edema Impression: No pneumonia identified Suspicious for pulmonary artery hypertension
--- NOTE | 2025-06-18 19:58 | EKG_ITS ---
[facility] Test Date: 2025-06-18 Pat Name: SHERRI VALENZUELA Department: Room: - Gender: Male Programmer: : 1960 Requested By: Emanuel Huitron Order Number: [id number] Reading MD: Emanuel Huitron Measurements Intervals [place] Rate: 114 P: 73 NM: 138 QRS: 16 QRSD: 110 T: 42 QT: 326 QTc: 450 Interpretive Statements SINUS TACHYCARDIA ABNORMAL RHYTHM ECG Compared to ECG 06/02/2025 08:57:49 Incomplete right bundle-branch block no longer present /store/S0/[id number].pdf
--- NOTE | 2025-06-18 20:02 | PD.EDADULT ---
ED General RME/HPI General Chief complaint: Fever Stated complaint: FEVER ALL DAY, HEADACHE, RECENT SEPSIS Time Seen by Provider: 06/18/25 19:54 Arrival date/time: 06/18/25 19:14 RME / HPI RME / HPI narrative: 65 y/o male with extensive PMHx who comes in evaluation for a fever, headache, and 2 episodes of vomiting. Patient reports that he has had similar symptoms to these before. He says that his fever was measured at home at 102 degrees, and he also said that he had his blood pressure measured at his pain specialist office today and it was reported low around 80 SBP. He denies any CP, SOB at this time. He says that he uses a biPAP at night for ANA diagnosed with a sleep study. He reports that he self took out his mendenhall catheter on Monday as he was instructed by his urologist. Related Data Home Medications ?Medication ?Instructions ?Recorded ?Confirmed aluminum-mag hydroxide-simethicone 10 ml PO Q6H PRN indigestion 06/01/25 06/19/25 400 mg-400 mg-40 mg/5 mL oral susp escitalopram oxalate 10 mg tablet 10 mg PO QDAY 06/01/25 06/19/25 galcanezumab-gnlm 120 mg/mL 120 mg subcut QMONTH 06/01/25 06/19/25 subcutaneous pen injector (Emgality Pen) ipratropium bromide 42 mcg (0.06 2 spray intranasal QDAY PRN 06/01/25 06/19/25 %) nasal spray allergy symptoms olanzapine 5 mg tablet 5 mg PO HS 06/01/25 06/19/25 ondansetron 4 mg disintegrating 4 mg PO Q8H PRN nausea and vomiting 06/01/25 06/19/25 tablet pantoprazole 40 mg tablet,delayed 40 mg PO QDAY 06/01/25 06/19/25 release rosuvastatin 20 mg tablet 20 mg PO QDAY 06/01/25 06/19/25 testosterone cypionate 200 mg/mL 200 mg subcut Q14D 06/01/25 06/19/25 intramuscular oil morphine (PF) .ROUTE 06/19/25 Previous Rx's ?Medication ?Instructions ?Recorded finasteride 5 mg tablet 5 mg PO QDAY 1 month #30 tabs 06/06/25 losartan 25 mg tablet 25 mg PO QDAY #30 tabs 06/06/25 tamsulosin 0.4 mg capsule 0.4 mg PO QDAY 1 month #30 caps 06/06/25 Allergies Allergy/AdvReac Type Severity Reaction Status Date / Time lactose Allergy Severe Diarrhea Verified 06/19/25 01:28 latex Allergy Severe Hives Verified 06/19/25 01:28 povidone-iodine Allergy Mild Rash Verified 06/19/25 01:28 Review of Systems Review of Systems Narrative Review of Systems: Constitutional: + fever and headache, no chills, fatigue, weakness, weight loss HEENT: No eye pain, vision loss, ear pain, hearing loss, dysphagia, Cardiovascular: No chest pain, palpitations, edema, pain with walking Respiratory: No cough, shortness of breath, wheezing GI: +vomiting, no abdominal pain, constipation, blood in stool, loss of appetite, heartburn Extremities: No presence of pitting edema MSK: No back pain, joint pain, joint swelling Neuro: No dizziness, numbness, weakness, headaches, seizures, tremors Psych: No anxiety, depression ED Exam Narrative Physical exam: General: AAOx3, NAD, multiple tattoos, appears comfortable HEENT: Moist mucous membranes, conjunctiva clear, EOMI, PERRLA, Cardiovascular: S1, S2, radial pulses +2 bilat, RRR Pulmonary: CTAB bilat no cough, no wheezing GI: No tenderness to light or deep palpitation, no guarding, rigidity, rebound tenderness or distension Extremities: No presence of trace or pitting edema in lower extremities bilaterally, dorsalis pedis pulses +2 bilaterally Neuro: AAOx3, no focal motor or sensory deficits in the UE or LE bilat Psych: Good judgement, thought and behavior Course Quality Measures none Orders Category Date Time Status Admit to Inpatient Status Routine Admission 06/18/25 23:45 Active Patient Condition Routine Admission 06/18/25 23:45 Ordered Bedside Blood Glucose NOW Care 06/18/25 19:58 Active Bedside COVID-19 Antigen Test NOW Care 06/18/25 19:20 Active Bladder Scan NEEDED Care 06/18/25 20:20 Active COVID-19 Screening Questionnaire NOW Care 06/18/25 22:38 Active Palaeontologist Q4H START 00 Care 06/18/25 19:58 Active Decision to Admit X1 Care 06/18/25 22:38 Completed EKG (ED ONLY) *Do not use* NOW Care 06/18/25 20:23 Completed Mendenhall [Urinary Catheter] QS Care 06/18/25 22:28 Active Insert IV NOW Care 06/18/25 19:58 Active Notify provider NEEDED Care 06/18/25 23:45 Active Strict Intake and Output Routine Care 06/18/25 19:[address] abdomen pelvis wo con Stat Exams 06/18/25 20:[address] head/brain wo con Stat Exams 06/18/25 20:24 Completed EKG (ED Only) Stat Exams 06/18/25 20:23 Ordered XR chest 1V SEPSIS PROTOCOL Stat Exams 06/18/25 19:58 Completed BNP [B-Type Natriuretic Peptide] Stat Lab 06/18/25 20:14 Completed Blood Culture (Lab) Stat Lab 06/18/25 20:14 Received CBC AM DRAW Lab 06/19/25 05:00 Ordered CBC AM DRAW Lab 06/20/25 05:00 Ordered CBC AM DRAW Lab 06/21/25 05:00 Ordered CBC Stat Lab 06/18/25 20:14 Completed Comprehensive Metabolic Panel Stat Lab 06/18/25 20:14 Completed D-Dimer Stat Lab 06/18/25 20:25 Completed Drug Screen,Urine Stat Lab 06/18/25 21:00 Completed Lactate (Lactic Acid) Stat Lab 06/18/25 20:14 Completed Lactic Acid, 3 HR Stat Lab 06/18/25 23:42 Completed Partial Thromboplastin Time Stat Lab 06/18/25 20:14 Completed Procalcitonin Stat Lab 06/18/25 20:14 Completed Prothrombin Time with INR Stat Lab 06/18/25 20:14 Completed Urinalysis Stat Lab 06/18/25 21:00 Completed Urine Culture Stat Lab 06/18/25 21:00 Received Acetaminophen Tab [Tylenol Tab] Med 06/18/25 20:19 Discontinued 650 mg PO X1 ONE Escitalopram Oxalate [Lexapro] Med 06/19/25 09:00 Active 10 mg PO QDAY Finasteride [Proscar] Med 06/19/25 09:00 Active 5 mg PO QDAY Heparin Inj Med 06/19/25 09:00 Active 5,000 unit SC BID OLANZapine [ZyPREXA] Med 06/19/25 21:00 Active 5 mg PO HS Ondansetron Odt [Zofran Odt] Med 06/18/25 23:48 Active 4 mg PO Q8H PRN nausea and vomiting Pantoprazole [Protonix] Med 06/19/25 09:00 Active 40 mg PO QDAY Piper/Tazo 3.375 gm Premix [Zosyn] 50 ml Med 06/19/25 00:00 Discontinued IV Q6HR Piper/Tazo Inj [Zosyn Inj] 4.5 gm Med 06/18/25 22:26 Discontinued Sodium Chloride 0.9% (Pop) [NS 0.9% mini bag] 100 ml IV X1 Ringers Lactated 1000 ml [Lactated Ringers] 1,000 ml Med 06/18/25 20:22 Discontinued IV 999 mls/hr Ringers Lactated 500 ml [Lactated Ringers] 500 ml Med 06/18/25 22:25 Discontinued IV 999 mls/hr Sodium Chloride 0.9% 1000 ml [Ns] 1,000 ml Med 06/18/25 21:44 Discontinued IV 999 mls/hr Tamsulosin HCl [Flomax] Med 06/19/25 09:00 Active 0.4 mg PO QDAY Code Status Routine Oth 06/18/25 23:45 Ordered BiPAP / CPAP HS RT 06/18/25 22:33 Active EKG (RT) Stat RT 06/18/25 19:58 Draft Oxygen Delivery NOW RT 06/18/25 19:58 Active Vital Signs Vital signs: Vital Signs Temperature 100.8 F H 06/18/25 19:45 Pulse Rate 123 H 06/18/25 19:45 Respiratory Rate 19 06/18/25 19:45 Blood Pressure 108/59 L 06/18/25 19:45 Pulse Oximetry (%) 91 L 06/18/25 19:45 Oxygen Delivery Method Room Air 06/18/25 19:45 Discharge Plan Plan Patient Disposition: Admit Acute Care w/in Hospital Problem List Clinical Impression: Sepsis MD Attestation MD Attestation I, Dr. eLos, have reviewed the history, exam, and assessment of the patient. I have evaluated the patient independently and agree with the plan of care documented by the resident Dr. Huitron. All diagnostic studies were reviewed and discussed. I confirm the diagnosis as documented by the resident. I was present during the Medical Decision Making for this patient. The patient?s plan of care was created between myself and the resident and consistent with our discussion of the patient?s case. MDM Narrative MDM hospital course (for use when minimal MDM required): 2028: HR 120s, Fever 102, sepsis alert initiated with sepsis alert initiated. Given Fluid boluses and antipyretics 4: Reviewed CT Abd/Pelvis which shows severe cystitis pattern. Urinalysis shows leukocyte esterase, 166 white blood cells, and nitrates. Will continue with antipyretics, sepsis IV fluids, will insert Mendenhall catheter. 2235: Spoke with resident, Dr. Yadav, will speak with hospitalist for requesting admission 2345: Hospitalist team accepts team for admission Medication Administration(s) Medication Administration History Escitalopram Oxalate (Escitalopram Oxalate 10 Mg Tablet) 10 mg PO QDAY GERMAN Stop: 07/19/25 08:59 Finasteride (Finasteride 5 Mg Tablet) 5 mg PO QDAY GERMAN Stop: 07/19/25 08:59 Heparin Sodium (Porcine) (Heparin Sod Inj 5000 Unit/Ml Vial) 5,000 unit SC BID GERMAN Stop: 07/03/25 08:59 Piperacillin/Tazobactam/Dextrose (Zosyn) 50 mls @ 100 mls/hr IV Q8HR GERMAN; Protocol Stop: 06/26/25 05:59 Sodium Chloride (Ns) 1,000 mls @ 200 mls/hr IV .Q5H ONE Stop: 06/19/25 05:41 Olanzapine (Olanzapine 5 Mg Tablet) 5 mg PO HS GERMAN Stop: 07/19/25 20:59 Ondansetron HCl (Ondansetron Odt 4 Mg Tabrap) 4 mg PO Q8H PRN; Protocol PRN Reason: nausea and vomiting Stop: 07/18/25 23:47 Pantoprazole Sodium (Pantoprazole 40 Mg Tablet) 40 mg PO QDAY GERMAN Stop: 07/19/25 08:59 Tamsulosin HCl (Tamsulosin Hcl 0.4 Mg Capsule) 0.4 mg PO QDAY GERMAN Stop: 07/19/25 08:59 Discontinued Medications Acetaminophen (Acetaminophen 325 Mg Tablet) 650 mg PO X1 ONE Stop: 06/18/25 20:20 Last Admin: 06/18/25 20:51 Dose: 650 mg Documented By: SUDARSHAN Lactated Ringer's (Lactated Ringers) 1,000 mls @ 999 mls/hr IV .Q1H1M ONE Stop: 06/18/25 21:22 Last Infusion: 06/18/25 22:00 Dose: Infused Documented By: Admin: 06/18/25 20:52 Dose: 999 mls/hr Documented By: SUDARSHAN Sodium Chloride (Ns) 1,000 mls @ 999 mls/hr IV .Q1H1M ONE Stop: 06/18/25 22:44 Last Infusion: 06/18/25 22:00 Dose: Infused Documented By: Admin: 06/18/25 20:52 Dose: 999 mls/hr Documented By: SUDARSHAN Lactated Ringer's (Lactated Ringers) 500 mls @ 999 mls/hr IV .Q31M ONE Stop: 06/18/25 22:55 Last Infusion: 06/18/25 23:55 Dose: Infused Documented By: Admin: 06/18/25 23:05 Dose: 999 mls/hr Documented By: SUDARSHAN Piperacillin Sod/Tazobactam (Sod 4.5 gm/ Sodium Chloride) 100 mls @ 200 mls/hr IV X1 ONE; Protocol Stop: 06/18/25 22:55 Last Infusion: 06/18/25 23:54 Dose: Infused Documented By: Admin: 06/18/25 23:04 Dose: 200 mls/hr Documented By: SUDRASHAN Piperacillin/Tazobactam/Dextrose (Zosyn) 50 mls @ 100 mls/hr IV Q6HR GERMAN; Protocol Stop: 06/26/25 00:00 Influenza Virus Vaccine Quadrival (Influenza Virus Quadrivalent 0.5 Ml Syringe) 0.5 ml IMi .ONCE ONE Stop: 06/19/25 01:42 Consultations/Discussions re: Management Consult #1: Date/time: 06/18/25 10:37 pm Physician, specialty, service, details: Spoke with resident with hospitalist team, Dr. Yadav, who will speak with hospitalist for decision for admission. 2345: Hospitalist team accepts team for admission Diagnosis Diagnoses ruled out and/or further discussions: Sepsis, Cystitis, pyleonephritis, pancreatitis,
--- NOTE | 2025-06-18 20:24 | XR_ITS ---
Examination: CT brain head without contrast. 2-D sagittal coronal reconstructions Date and time of exam:June 18, 2025, 2100 hrs. Indications: Headaches today CTDI: vol (mGy):54.7 DLP: (mGycm):1154 Technique: Multiple CT axial sections of the brain have been obtained, 5 mm slice thickness. Contrast has not been administered. 2-D sagittal, coronal reconstructions have been obtained Low dose protocols were performed. One or more of the following dose reduction techniques were used; automated exposure control, adjustment of the mA and/or KV according to patient size, use of iterative reconstruction technique. Findings: No significant ventricular enlargement. Intra-axial or extra-axial hemorrhage density is not seen. No mass effect or midline shift Basal cisterns are not remarkable. Fourth ventricle is midline. Cranial vault intact. Impression: Negative for acute hemorrhage, mass effect or midline shift Advise clinical correlation and follow-up accordingly
[2025-06-18 20:27] LABS: Lactate (Lactic Acid) 2.6 mMol/L (0.4-2.0)
[2025-06-18 20:35] LABS: Basophils # (Auto) 0.1 Thou/mm3 (0.0-0.2); Basophils % (Auto) 0 % (0-2.5); Eosinophils # (Auto) 0.6 Thou/mm3 (0.0-0.5); Eosinophils % (Auto) 2 % (0-10); Hematocrit 36.7 % (41.0-53.0); Hemoglobin 11.8 g/dL (13.5-16.0); Immature Granulocytes Auto 0.20 Thou/mm3 (0.00-0.00); Lymphocytes # (Auto) 0.9 Thou/mm3 (1.0-4.8); Lymphocytes % (Auto) 3 % (10-50); Mean Corpuscular HGB Conc 32.2 g/dl (31.0-37.0); Mean Corpuscular Hemoglobin 27.6 pg (25.0-35.0); Mean Corpuscular Volume 86 fL (80-100); Monocytes # (Auto) 3.5 Thou/mm3 (0.0-0.8); Monocytes % (Auto) 11 % (0-12); Neutrophils # (Auto) 27.0 Thou/mm3 (1.8-7.7); Neutrophils % (Auto) 84 % (37-80); Nucleated Red Blood Cell # 0.00 Thou/mm3 (0.00-0.00); Nucleated Red Blood Cell % 0 /100 WBC (0); Platelet Count 558 Thou/mm3 (140-440); RDW Standard Deviation 44.0 fL (35.1-43.9); Red Blood Count 4.28 Miln/mm3 (4.50-5.90); White Blood Count 32.3 Thou/mm3 (3.8-10.6)
[2025-06-18 20:43] LABS: INR 1.2 (0.9-1.3); Partial Thromboplastin Time 26.9 Seconds (22.0-36.0); Prothrombin Time 12.4 Seconds (9.0-12.2)
--- NOTE | 2025-06-18 20:43 | XR_ITS ---
Examination: CT abdomen and pelvis without contrast. Coronal 3-D reconstructions. Sagittal 2-D reconstructions. Date and time of exam:June 28, 2025, 2106 hrs. Indications: Abdominal pelvic pain today, diagnosis benign prostatic hypertrophy Comparison: April 19, 2019 CTDI: vol (mGy): 10.2 DLP: (mGycm): 691 Technique: Axial images of the abdomen have been obtained, 3 mm slice thickness Intravenous contrast material has not been administered. Low dose protocols were performed. One or more of the following dose reduction techniques were used; automated exposure control, adjustment of the mA and/or KV according to patient size, use of iterative reconstruction technique. Findings: No focal liver or splenic lesion Absent gallbladder Normal pancreas 21 mm fat-containing adrenal adenoma No renal or ureteral calculi, no hydronephrosis Abdominal aortic calcification no aneurysmal dilatation 15 mm fat-containing umbilical hernia No CT findings of appendicitis bowel obstruction or diverticulitis Severe cystitis pattern, marked inflammatory change surrounding the bladder with urinary bladder wall thickening Prostatomegaly transverse dimension 4.7 cm Transpedicular lumbar fusion L4-S1 with anatomic alignment Impression: Severe cystitis pattern Moderate prostatomegaly
[2025-06-18] MEDS: ACETAMINOPHEN 325 MG TABLET 650 MG PO (20:51)
[2025-06-18] MEDS: SODIUM CHLORIDE 0.9% 1000 ML 1,000 ML 999 ML IV (20:52)
[2025-06-18] MEDS: RINGERS LACTATED 1000 ML 1,000 ML 999 ML IV (20:52)
[2025-06-18 20:54] LABS: Alanine Aminotransferase 21 U/L (10-49); Albumin, Serum 4.4 gm/dL (3.4-4.8); Albumin/Globulin Ratio 1.6 (1.2-2.2); Alkaline Phosphatase 108 U/L (46-116); Anion Gap 9 (7-16); Aspartate Amino Transferase 35 U/L (0-34); BUN/Creatinine Ratio 13 Ratio (12-20); Bilirubin,Total 0.9 mg/dL (0.3-1.2); Blood Urea Nitrogen 20 mg/dL (9-23); Calcium 8.7 mg/dL (8.3-10.6); Calcium (Corrected) 8.7 mg/dL (8.5-10.1); Carbon Dioxide 25.8 mMol/L (20.0-31.0); Chloride 98 mMol/L (98-107); Creatinine (Component) 1.5 mg/dL (0.6-1.3); Estimated Creatinine Clearance 68.4 mL/min (>60); Globulin 2.8 gm/dL (2.3-3.5); Glucose 130 mg/dL (74-106); Osmolality,Calculated 270 (275-295); Potassium 4.3 mMol/L (3.4-5.1); Procalcitonin 2.23 ng/ml (0.0-0.49); Sodium 133 mMol/L (136-145); Total Protein 7.2 gm/dL (5.7-8.2); eGFR 51 See Note
[2025-06-18 20:56] LABS: D-Dimer 1710 ng/mL (<600)
[2025-06-18 21:06] LABS: B-Type Natriuretic Peptide 145 pg/mL (0-100)
[2025-06-18 21:16] LABS: Collection Type, Urine Clean Catch; Squamous Epithelial Cell,Urine 0 /hpf (0-5)
[2025-06-18 21:20] LABS: Bilirubin,Urine Negative (Negative); Blood,Urine 2+ (Negative); Clarity,Urine Turbid (Clear/Hazy); Color,Urine Yellow (Lt Yel-Yel); Glucose, Urine Negative (Negative); Ketones,Urine Trace (Negative); Leukocyte Esterase,Urine Positive (Negative); Nitrite,Urine Positive (Negative); PH,Urine 6.0 (5.0-7.0); Protein,Urine 2+ (Neg - Trace); RBC,Urine 27 /hpf (0-3); Specific Gravity,Urine 1.028 (1.001-1.035); Urobilinogen,Urine Negative mg/dL (0.0-1.0); WBC,Urine 166 /hpf (0-5)
[2025-06-18 21:29] LABS: Amphetamine/Methamp Scrn,U Negative (Negative); Barbiturate Screen,Urine Negative (Negative); Benzodiazepines Screen,Urine Negative (Negative); Benzoylecgonine Screen, Ur Negative (Negative); Fentanyl Screen,Urine Negative (Negative); Opiate Screen,Urine Positive (Negative); THC Screen,Urine Negative (Negative)
[2025-06-18] MEDS: PIPER/TAZO INJ 4.5 GM in SODIUM CHLORIDE 0.9% (POP) 100 ML IV (23:04)
[2025-06-18] MEDS: RINGERS LACTATED 500 ML 500 ML 999 ML IV (23:05)
[2025-06-18 23:23] LABS: Reflex Lactate? Y
[2025-06-18 23:52] LABS: Lactic Acid, 3 HR 1.1 mMol/L (0.4-2.0)
--- NOTE | 2025-06-18 23:53 | PD.RESHP ---
Documentation for date of: 06/18/25 [facility] History of Present Illness History of present illness: Patient is a 65-year-old male past medical history of chronic back pain with subcutaneous infusion point, depression/anxiety, GERD, sleep apnea on BiPAP, HLD, on testosterone replacement therapy BPH who presented to the ED on06/18/2025 chief complaint of fever. The patient presents with a fever of 102?F overnight, accompanied by a general feeling of unwellness. This morning, upon waking, he felt sweaty and clammy. He went to his primary care physician for a routine checkup, where he was found to have low systolic blood pressure (80 mmHg). Was referred to the urgent care, and subsequently, he was advised to come to the emergency department further evaluation. The patient report a history of high fevers and leukocytosis from a prior hospitalization. Also was diagnoses with a benign prostatic hyperplasia and managed with a suprapubic catheter and medications. He was discharged with a Bertrand catheter on 06/06 and later removed the Bertrand catheter on 06/16 per urology's instructions. He denies symptoms of frequency, urgency, hematuria, or dysuria following the removal. Patient has a history of ANA, he uses a BiPAP at home, denies any orthopnea, or dyspnea on exertion. The patient denies recent sick contacts, chest pain, palpitations, sob, abdominal pain, diarrhea, constipation, or diaphoresis. ED Course: - Initial vitals were BP 108/59 pulse, 93, respiratory 18, temperature 100.8, O2 sat 93% on 2L nasal cannula. - Labs significant for visit 32.3, hemoglobin 11.8, hematocrit 36.7, platelet 558, sodium 133, creatinine 1.5, lactic acid 2.6, AST 35, Pro-Dario 2.23 - UA turbid clarity, leukocyte esterase positive, 2+ protein, 2+ blood, RBC 27, WBC 166 -Imaging included chest x-ray no pneumonia, head CT negative for acute hemorrhage. Abdominal/pelvis x-ray showed severe cystitis pattern with moderate prostatomegaly, 15 mm fat-containing umbilical hernia. -In the ED, patient was given Tylenol and 2L IV fluid -Patient was admitted for sepsis in setting of UTI. Review of Systems Review of systems otherwise negative except what is mentioned above. Past Medical History: Mentioned above Family History: Father has alpha-1 antitrypsin deficiency Surgical History: Spinal surgeries Social History:Denies history of smoking, denies current alcohol use, denies recreational drug use Current Medications: Med list Allergies: Lactose, latex, Povidine iodine Review of Systems Review of Systems Systems Reviewed: All systems reviewed, normal except as documented Exam Vital Signs Temp Pulse Resp BP Pulse Ox O2 Del Method O2 Flow Rate 98.4 F 93 22 H 136/75 H 95 Nasal Cannula 2 06/18/25 23:09 06/18/25 23:09 06/18/25 23:09 06/18/25 23:09 06/18/25 23:09 06/18/25 23:09 06/18/25 23:09 Narrative Exam General: Alert, no acute distress.Conversational and non-toxic appearing. Skin: Warm, dry, intact. No rash or ecchymoses. Head: Normocephalic, atraumatic. Eye: Normal conjunctiva, PERRL. Throat: Oral mucosa moist. No obvious lesions in oropharynx. Cardiovascular: Regular rate and rhythm, no murmur, +S1/S2. Respiratory: Lungs are clear to auscultation, respirations unlabored, no crackles, no wheezing. Gastrointestinal: Soft, nontender, non-distended. No guarding or rebound tenderness. Extremities: No edema, no cyanosis, no clubbing. Neuro: Alert and oriented x3.No focal deficits observed. Conversant, moving all extremities. No overt cerebellar signs/incoordination. Psychiatric: Cooperative, appropriate affect Results: Labs 06/19/25 04:40 06/19/25 05:14 Labs: Short CBC 06/18/25 Range/Units 20:14 WBC 32.3 H (3.8-10.6) Thou/mm3 Hgb 11.8 L (13.5-16.0) g/dL Hct 36.7 L (41.0-53.0) % Plt Count 558 H D (140-440) Thou/mm3 BMP 06/18/25 20:14 Sodium 133 L Potassium 4.3 Chloride 98 Carbon Dioxide 25.8 BUN 20 Creatinine 1.5 H Glucose 130 H Calcium 8.7 Liver Function 06/18/25 Range/Units 20:14 Total Bilirubin 0.9 (0.3-1.2) mg/dL AST 35 H (0-34) U/L ALT 21 (10-49) U/L Alkaline Phosphatase 108 (46-116) U/L Albumin 4.4 (3.4-4.8) gm/dL Urine 06/18/25 Range/Units 21:00 Urine Color Yellow (Lt Yel-Yel) Urine Clarity Turbid A (Clear/Hazy) Urine pH 6.0 (5.0-7.0) Ur Specific [place] 1.028 (1.001-1.035) Urine Protein 2+ A (Neg - Trace) Urine Glucose (UA) Negative (Negative) Quality Measures Quality Measures none Advance care planning discussed with:: patient and spouse Medications Home Medications and Allergies Home Medications ?Medication ?Instructions ?Recorded ?Confirmed ?Type aluminum-mag hydroxide-simethicone 10 ml PO Q6H PRN indigestion 06/01/25 06/19/25 History 400 mg-400 mg-40 mg/5 mL oral susp escitalopram oxalate 10 mg tablet 10 mg PO QDAY 06/01/25 06/19/25 History galcanezumab-gnlm 120 mg/mL 120 mg subcut QMONTH 06/01/25 06/19/25 History subcutaneous pen injector (Emgality Pen) ipratropium bromide 42 mcg (0.06 2 spray intranasal QDAY PRN 06/01/25 06/19/25 History %) nasal spray allergy symptoms olanzapine 5 mg tablet 5 mg PO HS 06/01/25 06/19/25 History ondansetron 4 mg disintegrating 4 mg PO Q8H PRN nausea and vomiting 06/01/25 06/19/25 History tablet pantoprazole 40 mg tablet,delayed 40 mg PO QDAY 06/01/25 06/19/25 History release rosuvastatin 20 mg tablet 20 mg PO QDAY 06/01/25 06/19/25 History testosterone cypionate 200 mg/mL 200 mg subcut Q14D 06/01/25 06/19/25 History intramuscular oil morphine (PF) .Route 06/19/25 History Allergies Allergy/AdvReac Type Severity Reaction Status Date / Time lactose Allergy Severe Diarrhea Verified 06/19/25 01:28 latex Allergy Severe Hives Verified 06/19/25 01:28 povidone-iodine Allergy Mild Rash Verified 06/19/25 01:28 Visit Medications Escitalopram Oxalate (Escitalopram Oxalate 10 Mg Tablet) 10 mg PO QDAY GERMAN Stop: 07/19/25 08:59 Finasteride (Finasteride 5 Mg Tablet) 5 mg PO QDAY GERMAN Stop: 07/19/25 08:59 Piperacillin/Tazobactam/Dextrose (Zosyn) 50 mls @ 100 mls/hr IV Q6HR GERMAN; Protocol Stop: 06/26/25 00:00 Olanzapine (Olanzapine 5 Mg Tablet) 5 mg PO HS [facility] Stop: 07/19/25 20:59 Ondansetron HCl (Ondansetron Odt 4 Mg Tabrap) 4 mg PO Q8H PRN; Protocol PRN Reason: nausea and vomiting Stop: 07/18/25 23:47 Pantoprazole Sodium (Pantoprazole 40 Mg Tablet) 40 mg PO QDAY GERMAN Stop: 07/19/25 08:59 Tamsulosin HCl (Tamsulosin Hcl 0.4 Mg Capsule) 0.4 mg PO QDAY GERMAN Stop: 07/19/25 08:59 Discontinued Medications Acetaminophen (Acetaminophen 325 Mg Tablet) 650 mg PO X1 ONE Stop: 06/18/25 20:20 Last Admin: 06/18/25 20:51 Dose: 650 mg Lactated Ringer's (Lactated Ringers) 1,000 mls @ 999 mls/hr IV .Q1H1M ONE Stop: 06/18/25 21:22 Last Infusion: 06/18/25 22:00 Dose: Infused Sodium Chloride (Ns) 1,000 mls @ 999 mls/hr IV .Q1H1M ONE Stop: 06/18/25 22:44 Last Infusion: 06/18/25 22:00 Dose: Infused Lactated Ringer's (Lactated Ringers) 500 mls @ 999 mls/hr IV .Q31M ONE Stop: 06/18/25 22:55 Last Admin: 06/18/25 23:05 Dose: 999 mls/hr Piperacillin Sod/Tazobactam (Sod 4.5 gm/ Sodium Chloride) 100 mls @ 200 mls/hr IV X1 ONE; Protocol Stop: 06/18/25 22:55 Last Admin: 06/18/25 23:04 Dose: 200 mls/hr Assessment & Plan Plan Patient is a 65-year-old male past medical history of chronic back pain with subcutaneous fusion point, depression/anxiety, GERD, sleep apnea on BiPAP, HLD, on testosterone replacement therapy. BPH who presented to the ED on06/18/2025 chief complaint of fever. Admitted for evaluation and management of fever episodes #Severe sepsis #Catheter associated UTI #Severe cystitis on CT Patient fever of 102 at home, WBC 32.1, lactic acid 2.6 tachycardia, meeting SIRS criteria 3/4. Pro-Dario 2.23 indicating inflammatory process. Sepsis protocol was triggered and patient received 4 L IV fluid, antipyretics. Lactate downtrending and fever subsides. SIRS is likely secondary to catheter associated UTI given the fact patient patient has previous history of similar presentation while in the hospital and Bertrand catheter introduced bacterial urinary tract causing infection and cystitis. Patient denies dysuria, urgency, frequency however UA positive for leukocyte esterase, 2+ protein, 2+ blood, RBC 27, WBC 166 - Started Zosyn 3.75 mg - Blood culture ordered, pending - Urine culture, pain - Follow-up with daily labs - Bertrand catheter #Acute kidney injury #Lactic acidosis DIXON in the setting prostamegaly and BPH. CR 1.5, GFR 51. BUN/Cr 13 - Avoid nephrotoxins - Monitor renal panel - Renally dosed medications #Elevated D-dimer At ED D-dimer was ordered and was noted to be elevated at 1710 Patient has no symptoms/signs of respiratory distress saturating well on room air. D-dimer elevated in the setting of patient's sepsis. Well's score for patient is 0 No concern of PE or DVT in the meantime. #Normocytic normochromic anemia #Thrombocytosis Presented hemoglobin 11.8, hematocrit 36.9, patient is stable and not actively bleeding. Denies hematemesis, hematuria, melena and hematochezia. Platelet 558, likely transient response to infection. - Continue to monitor # Benign prostatic hyperplasia # Moderate prostamegaly on CT -Resume home tamsulosin 0.4 mg po daily -Resume finasteride 5 mg p.o. daily #Essential hypertension Home Medication losartan 25 mg daily - Hold home meds for borderline hypotension #Major depressive disorder #Anxiety -Resume home Lexapro from 10 mg - Resume Zyprexa 5 mg #Obstructive sleep apnea History of ANA on BiPAP at home -Resume BiPAP/CPAP at night #Hyperlipidemia Home medication rosuvastatin 20 mg -Started Atorvsatain 10 mg #GERD -Resume home pantoprazole 40 mg p.o. daily Hospital management: Lines: peripheral IV Diet: Bowel: Senna GI prophylaxis: pantoprazole DVT prophylaxis: SCDs Disposition: Med/tele further management evaluation fever in setting of SIRS CODE STATUS: Full code Patient seen and assessed under supervision of attending physician Dr. Silvestre Yadav MD PGY-1, Internal Medicine Please note: this document was transcribed using voice recognition technology; minor inaccuracies may be present. Attending Provider Attestation/Addendum After examination of the patient and review of the clinical data I feel that this patient needs admission to the hospital for further treatment/evaluation. Plan of care discussed with patient and is in agreement. I Tiana Rivers MD, attest that I was physically present for hunter portions of evaluation, and examined patient, labs and imagings and plan of care were discussed with IM residents team, and I agree with the findings and plans documented above.
[2025-06-19] VITALS (15 sets, daily range): BP systolic 110–135; BP diastolic 64–76; PULSE 79–108; RESP 10–98; TEMP 36.4–37.1; O2SAT 93–98; BMI 27.3
[2025-06-19 01:25] LABS: Iron 11 mcg/dL (65-175); Percent Iron Saturation 3 % (20-55); Total Iron Binding Capacity 350 mcg/dL (250-425); Unsaturated Iron Binding 339 (225-295)
[2025-06-19] MEDS: SODIUM CHLORIDE 0.9% 1000 ML 1,000 ML 200 ML IV (02:24)
[2025-06-19 05:33] LABS: Basophils # (Auto) 0.1 Thou/mm3 (0.0-0.2); Basophils % (Auto) 0 % (0-2.5); Eosinophils # (Auto) 0.0 Thou/mm3 (0.0-0.5); Eosinophils % (Auto) 0 % (0-10); Hematocrit 35.9 % (41.0-53.0); Hemoglobin 11.4 g/dL (13.5-16.0); Immature Granulocytes Auto 0.30 Thou/mm3 (0.00-0.00); Lymphocytes # (Auto) 1.7 Thou/mm3 (1.0-4.8); Lymphocytes % (Auto) 5 % (10-50); Mean Corpuscular HGB Conc 31.8 g/dl (31.0-37.0); Mean Corpuscular Hemoglobin 27.5 pg (25.0-35.0); Mean Corpuscular Volume 87 fL (80-100); Monocytes # (Auto) 3.3 Thou/mm3 (0.0-0.8); Monocytes % (Auto) 10 % (0-12); Neutrophils # (Auto) 26.7 Thou/mm3 (1.8-7.7); Neutrophils % (Auto) 83 % (37-80); Nucleated Red Blood Cell # 0.00 Thou/mm3 (0.00-0.00); Nucleated Red Blood Cell % 0 /100 WBC (0); Platelet Count 530 Thou/mm3 (140-440); RDW Standard Deviation 45.9 fL (35.1-43.9); Red Blood Count 4.15 Miln/mm3 (4.50-5.90); White Blood Count 32.1 Thou/mm3 (3.8-10.6)
[2025-06-19 05:59] LABS: Magnesium 1.9 mg/dL (1.6-2.6); Phosphorous 3.0 mg/dL (2.4-5.1)
[2025-06-19] MEDS: PIPER/TAZO 3.375 GM PREMIX 3.375 GM/50 ML BAG IV ×3 (06:54→22:25)
[2025-06-19] MEDS: TAMSULOSIN HCL 0.4 MG CAPSULE PO (08:56)
[2025-06-19] MEDS: FINASTERIDE 5 MG TABLET PO (08:56)
[2025-06-19] MEDS: PANTOPRAZOLE 40 MG TABLET PO (08:56)
[2025-06-19] MEDS: ESCITALOPRAM OXALATE 10 MG TABLET PO (08:57)
[2025-06-19] MEDS: HEPARIN SOD INJ 5000 UNIT/ML VIAL SC ×2 (08:57→20:31)
[2025-06-19 09:52] LABS: Anion Gap 10 (7-16); BUN/Creatinine Ratio 16 Ratio (12-20); Blood Urea Nitrogen 19 mg/dL (9-23); Calcium 8.2 mg/dL (8.3-10.6); Carbon Dioxide 28.3 mMol/L (20.0-31.0); Chloride 103 mMol/L (98-107); Creatinine (Component) 1.2 mg/dL (0.6-1.3); Estimated Creatinine Clearance 82.2 mL/min (>60); Glucose 107 mg/dL (74-106); Osmolality,Calculated 283 (275-295); Potassium 5.0 mMol/L (3.4-5.1); Sodium 141 mMol/L (136-145); eGFR > 60 See Note
[2025-06-19] MEDS: SODIUM CHLORIDE 0.9% 1000 ML 1,000 ML 100 ML IV (12:25)
--- NOTE | 2025-06-19 15:32 | ESPR_ITS ---
<Statement entered by Regis Huddleston MD - 06/27/25 08:18> I reviewed above note and agree with findings and plans. I have also personally examined the patient with medicine team and went over assessment and plan with medical team including international marketing intern and resident physician. <Statement entered by Wyatt Mcginnis MD - 06/19/25 15:36> Patient seen and assessed in hospital bed denies having any concerning symptoms at this time. Patient is having good urine output without the need of a Mendenhall catheter. White blood cell count remains elevated likely secondary to hemoconcentration; however, will initiate 1 L maintenance fluids of lactated Ringer's and follow-up with morning labs. Patient's cultures are pending but we will continue broad-spectrum IV antibiotics at this time for catheter associated urinary tract infection. Will continue monitoring the patient closely and expect discharge within the next 24 to 48 hours. I have personally seen and examined the patient. I agree with the resident's assessment and plan as documented below. Wyatt Mcginnis DO PGY-2 Internal Medicine - G[facility] Documentation for date of: 06/19/25 Subjective Subjective Interval history: No acute events overnight. Patient is feeling well today and denies fever, chills, nausea, vomiting, dysuria, flank pain, altered mental status and lethargy. Labs are significant for elevated WBC 32.1, Hgb 11.4, Hct 35.9, Plt 530 and D-dimer 1710. Patient is having good urine output. Exam Vital Signs Temp Pulse Resp BP Pulse Ox O2 Del Method O2 Flow Rate 97.6 F 95 23 H 115/68 94 L Room Air 2 06/19/25 11:38 06/19/25 12:30 06/19/25 11:38 06/19/25 11:38 06/19/25 11:38 06/19/25 11:38 06/18/25 23:09 FiO2 30 06/19/25 02:08 Narrative Exam General: Patient alert, oriented, in no acute distress. HEENT: Normocephalic, atraumatic. PERRLA, EOMI, no scleral icterus or conjunctival injection. Oropharynx clear, mucous membranes moist. Cardiac: Regular rate and rhythm, normal S1/S2, no murmurs, rubs, or gallops. Peripheral pulses 2+ and symmetric. No peripheral edema. Lungs: Normal effort, clear to auscultation bilaterally, no wheezes, rales, or rhonchi. Abdomen: Soft, non-tender, non-distended. Normoactive bowel sounds. No hepatosplenomegaly, no rebound/guarding. Extremities: Warm, well-perfused, no clubbing, cyanosis, or edema. Full range of motion, no joint tenderness. Skin: Warm, dry, intact. No rashes, lesions, or ecchymoses. Neuro: Alert and oriented ?3. Speech fluent. Cranial nerves II?XII grossly intact. Psych: Appropriate mood and affect. Cooperative, good eye contact. Objective Labs 06/20/25 04:36 06/20/25 04:36 Labs: Laboratory Results - last 24 hr 06/18/25 06/18/25 06/18/25 20:14 20:25 21:00 WBC 32.3 H RBC 4.28 L Hgb 11.8 L Hct 36.7 L MCV 86 MCH 27.6 MCHC 32.2 RDW Std Deviation 44.0 H Plt Count 558 H D Neut % (Auto) 84 H Lymph % (Auto) 3 L [place] % (Auto) 11 Eos % (Auto) 2 Baso % (Auto) 0 Neut # (Auto) 27.0 H Lymph # (Auto) 0.9 L [place] # (Auto) 3.5 H Eos # (Auto) 0.6 H Baso # (Auto) 0.1 Immature Gran # (Auto) 0.20 H Absolute Nucleated RBC 0.00 Immature Gran % 1 H Nucleated RBC % 0 PT 12.4 H INR 1.2 APTT 26.9 D-Dimer 1710 H Sodium 133 L Potassium 4.3 Chloride 98 Carbon Dioxide 25.8 Anion Gap 9 BUN 20 Creatinine 1.5 H Estim Creat Clear Calc 68.4 eGFR 51 L BUN/Creatinine Ratio 13 Glucose 130 H Calculated Osmolality 270 L Lactic Acid 2.6 H Calcium 8.7 Corrected Calcium 8.7 Phosphorus Magnesium Iron TIBC Iron Saturation Unsat Iron Binding Total Bilirubin 0.9 AST 35 H ALT 21 Alkaline Phosphatase 108 B-Natriuretic Peptide 145 H Total Protein 7.2 Albumin 4.4 Globulin 2.8 Albumin/Globulin Ratio 1.6 Procalcitonin 2.23 H Ur Collection Type Clean Catch Urine Color Yellow Urine Clarity Turbid A Urine pH 6.0 Ur Specific [place] 1.028 Urine Protein 2+ A Urine Glucose (UA) Negative Urine Ketones Trace Urine Blood 2+ A Urine Nitrite Positive Urine Bilirubin Negative Urine Urobilinogen (Auto) Negative Ur Leukocyte Esterase Positive Urine RBC 27 H Urine WBC 166 H Ur Squamous Epith Cells 0 Urine Bacteria None Urine Opiates Screen Positive A Urine Fentanyl Screen Negative Ur Barbiturates Screen Negative U Amphetamin/Meth Scrn Negative U Benzodiazepines Scrn Negative U Cocaine Metab Screen Negative U Marijuana (THC) Screen Negative 06/18/25 06/19/25 06/19/25 23:42 00:00 04:40 WBC 32.1 H RBC 4.15 L Hgb 11.4 L Hct 35.9 L MCV 87 MCH 27.5 MCHC 31.8 RDW Std Deviation 45.9 H Plt Count 530 H Neut % (Auto) 83 H Lymph % (Auto) 5 L [place] % (Auto) 10 Eos % (Auto) 0 Baso % (Auto) 0 Neut # (Auto) 26.7 H Lymph # (Auto) 1.7 [place] # (Auto) 3.3 H Eos # (Auto) 0.0 Baso # (Auto) 0.1 Immature Gran # (Auto) 0.30 H Absolute Nucleated RBC 0.00 Immature Gran % 1 H Nucleated RBC % 0 PT INR APTT D-Dimer Sodium Potassium Chloride Carbon Dioxide Anion Gap BUN Creatinine Estim Creat Clear Calc eGFR BUN/Creatinine Ratio Glucose Calculated Osmolality Lactic Acid 1.1 Calcium Corrected Calcium Phosphorus 3.0 Magnesium 1.9 Iron 11 L TIBC 350 Iron Saturation 3 L Unsat Iron Binding 339 H Total Bilirubin AST ALT Alkaline Phosphatase B-Natriuretic Peptide Total Protein Albumin Globulin Albumin/Globulin Ratio Procalcitonin Ur Collection Type Urine Color Urine Clarity Urine pH Ur Specific [place] Urine Protein Urine Glucose (UA) Urine Ketones Urine Blood Urine Nitrite Urine Bilirubin Urine Urobilinogen (Auto) Ur Leukocyte Esterase Urine RBC Urine WBC Ur Squamous Epith Cells Urine Bacteria Urine Opiates Screen Urine Fentanyl Screen Ur Barbiturates Screen U Amphetamin/Meth Scrn U Benzodiazepines Scrn U Cocaine Metab Screen U Marijuana (THC) Screen 06/19/25 05:14 WBC RBC Hgb Hct MCV MCH MCHC RDW Std Deviation Plt Count Neut % (Auto) Lymph % (Auto) [place] % (Auto) Eos % (Auto) Baso % (Auto) Neut # (Auto) Lymph # (Auto) [place] # (Auto) Eos # (Auto) Baso # (Auto) Immature Gran # (Auto) Absolute Nucleated RBC Immature Gran % Nucleated RBC % PT INR APTT D-Dimer Sodium 141 Potassium 5.0 D Chloride 103 Carbon Dioxide 28.3 Anion Gap 10 BUN 19 Creatinine 1.2 Estim Creat Clear Calc 82.2 eGFR > 60 BUN/Creatinine Ratio 16 Glucose 107 H Calculated Osmolality 283 Lactic Acid Calcium 8.2 L Corrected Calcium Phosphorus Magnesium Iron TIBC Iron Saturation Unsat Iron Binding Total Bilirubin AST ALT Alkaline Phosphatase B-Natriuretic Peptide Total Protein Albumin Globulin Albumin/Globulin Ratio Procalcitonin Ur Collection Type Urine Color Urine Clarity Urine pH Ur Specific [place] Urine Protein Urine Glucose (UA) Urine Ketones Urine Blood Urine Nitrite Urine Bilirubin Urine Urobilinogen (Auto) Ur Leukocyte Esterase Urine RBC Urine WBC Ur Squamous Epith Cells Urine Bacteria Urine Opiates Screen Urine Fentanyl Screen Ur Barbiturates Screen U Amphetamin/Meth Scrn U Benzodiazepines Scrn U Cocaine Metab Screen U Marijuana (THC) Screen Quality Measures Quality Measures none Advance care planning discussed with:: patient Assessment & Plan Assessment Current Active Medications: Generic Name Dose Route Start Last Admin Trade Name Kamron PRN Reason Stop Dose Admin Escitalopram Oxalate 10 mg 06/19/25 09:00 06/19/25 08:57 Escitalopram Oxalate 10 Mg Tablet PO 07/19/25 08:59 10 mg QDAY GERMAN Administration Finasteride 5 mg 06/19/25 09:00 06/19/25 08:56 Finasteride 5 Mg Tablet PO 07/19/25 08:59 5 mg QDAY GERMAN Administration Heparin Sodium (Porcine) 5,000 unit 06/19/25 09:00 06/19/25 08:57 Heparin Sod Inj 5000 Unit/Ml Vial SC 07/03/25 08:59 5,000 unit BID GERMAN Administration Piperacillin/Tazobactam/Dextrose 3.375 gm in 50 mls @ 12.5 mls/hr 06/19/25 06:00 06/19/25 13:54 Zosyn IV 06/26/25 05:59 12.5 mls/hr Q8HR GERMAN Administration Protocol Sodium Chloride 1,000 mls @ 100 mls/hr 06/19/25 11:18 06/19/25 12:25 Ns IV 06/19/25 21:17 100 mls/hr .Q10H ONE Administration Olanzapine 5 mg 06/19/25 21:00 Olanzapine 5 Mg Tablet PO 07/19/25 20:59 HS GERMAN Ondansetron HCl 4 mg 06/18/25 23:48 Ondansetron Odt 4 Mg Tabrap PO 07/18/25 23:47 Q8H PRN nausea and vomiting Protocol Pantoprazole Sodium 40 mg 06/19/25 09:00 06/19/25 08:56 Pantoprazole 40 Mg Tablet PO 07/19/25 08:59 40 mg QDAY GERMAN Administration Tamsulosin HCl 0.4 mg 06/19/25 09:00 06/19/25 08:56 Tamsulosin Hcl 0.4 Mg Capsule PO 07/19/25 08:59 0.4 mg QDAY GERMAN Administration Plan 65 yo male PMHx of HFpEF (EF 50-55%), chronic back pain with subcutaneous morphine infusion point, depression/anxiety, GERD, sleep apnea on BIPAP, HLD and BPH presented with fever admitted for the evaluation and management of UTI. #Sepsis 2/2 Catheter associated UTI (presented on admission) #Complicated Lower UTI Patient meets sepsis criteria due to fever, elevated WBC 32.3, lactic acid 2.6, tachycardia and end organ damage as evident by Cr 1.5 on admission. Patient recently was discharged from prior hospitalization on 06/06 with bladder mendenhall catheter and instructed to remove on 06/16. Likely etiology of sepsis is catheter associated UTI due to symptoms developing within 48 hours of removing the catheter and introduction of foreign body causing infection. White blood cell count remains elevated likely secondary to hemoconcentration. Patient denies dysuria, urgency, frequency at this time and is having good urine output without the need of a mendenhall catheter. Plan - Continue Zosyn 3.75 mg - Pending blood and urine culture results for modification of antibacterial treatment - Start IV Fluids NS 100 cc/hr for hemoconcentration - Follow-up renal panel #DIXON, resolving His DIXON is likely in setting of prostamegaly and BPH. It is currently resolving with Cr 1.2, BUN 19, eGFR >60. Plan - Avoid nephrotoxins - Monitor renal panel - Renally dosed medications #Benign Prostatic Hyperplasia #Moderate Prostamegaly on CT Plan - Continue home tamsulosin 0.4 mg po daily - Continue home finasteride 5 mg p.o. daily #Normocytic normochromic anemia #Thrombocytosis Hemoglobin 11.8, hematocrit 35.9. Patient is stable and not actively bleeding. Denies hematemesis, hematuria, melena and hematochezia. Platelet 558 -> 530, likely transient response to infection. Plan - Continue to monitor #Essential hypertension Home Medication losartan 25 mg daily Plan - Hold losartan at this time due to stable BP #Major depressive disorder #Anxiety Plan - Continue home Lexapro from 10 mg - Continue Zyprexa 5 mg #Obstructive sleep apnea History of ANA on BiPAP at home Plan - Resume BiPAP/CPAP at night #Hyperlipidemia Home medication rosuvastatin 20 mg Plan - Order lipid panel to assess HLD #GERD Patient has symptoms of reflux and take pantoprazole 40mg Plan - Continue home pantoprazole 40 mg p.o. daily Hospital management: Lines: peripheral IV Diet: Bowel: Senna GI prophylaxis: pantoprazole DVT prophylaxis: SCDs Disposition: Med/tele further management evaluation fever in setting of SIRS CODE STATUS: Full code Patient seen and assessed under supervision of attending physician Dr. Huddleston. Magno MAHAN-RAJINDER, Internal Medicine
--- NOTE | 2025-06-19 15:59 | PC.SS ---
SS met with patient regarding his d/c plan. Pt is alert/oriented. Pt was admitted for Fever. Pt confirmed demographic and contact information is correct on facesheet. Pt resides with . Pt ambulates independently without assistance or DME. Pt is ok with all ADLs. Patient?s pharmacy of choice is [facility] on [address] Pt named his , Angy Lizarraga medical decision maker if she is unable. SS provided verbal options for d/c to home or SNF. Patient?s choice is to return home upon d/c. Pt states he is not diabetic and is not on dialysis. will provide transportation home. D/C plan: Return home Next of Kin: Angy Lizarraga, , phone# [phone] PCP: Dr. Josias Reyes from [facility] Address: [id number] [place] [address] in [facility] [id number]
--- NOTE | 2025-06-19 16:32 | PC.NURSE ---
Called Dr. Mcginnis regarding home medication reconciliation. Informed MD that med rec is completed but unable to input Morphine infusion pump info in the computer, but dosage is in chart and MD will need to come look at chart for dosage. Per MD will come look at chart.
[2025-06-20] VITALS (12 sets, daily range): BP systolic 124–143; BP diastolic 73–83; PULSE 80–101; RESP 10–94; TEMP 36.1–37.2; O2SAT 93–96
[2025-06-20] MEDS: PIPER/TAZO 3.375 GM PREMIX 3.375 GM/50 ML BAG IV ×3 (05:36→21:04)
[2025-06-20 05:45] LABS: Basophils # (Auto) 0.1 Thou/mm3 (0.0-0.2); Basophils % (Auto) 1 % (0-2.5); Eosinophils # (Auto) 0.3 Thou/mm3 (0.0-0.5); Eosinophils % (Auto) 2 % (0-10); Hematocrit 32.1 % (41.0-53.0); Hemoglobin 10.1 g/dL (13.5-16.0); Immature Granulocytes Auto 0.06 Thou/mm3 (0.00-0.00); Lymphocytes # (Auto) 1.5 Thou/mm3 (1.0-4.8); Lymphocytes % (Auto) 8 % (10-50); Mean Corpuscular HGB Conc 31.5 g/dl (31.0-37.0); Mean Corpuscular Hemoglobin 27.8 pg (25.0-35.0); Mean Corpuscular Volume 88 fL (80-100); Monocytes # (Auto) 1.7 Thou/mm3 (0.0-0.8); Monocytes % (Auto) 9 % (0-12); Neutrophils # (Auto) 14.8 Thou/mm3 (1.8-7.7); Neutrophils % (Auto) 81 % (37-80); Nucleated Red Blood Cell # 0.00 Thou/mm3 (0.00-0.00); Nucleated Red Blood Cell % 0 /100 WBC (0); Platelet Count 435 Thou/mm3 (140-440); RDW Standard Deviation 46.8 fL (35.1-43.9); Red Blood Count 3.63 Miln/mm3 (4.50-5.90); White Blood Count 18.4 Thou/mm3 (3.8-10.6)
[2025-06-20 06:06] LABS: Anion Gap 9 (7-16); BUN/Creatinine Ratio 11 Ratio (12-20); Blood Urea Nitrogen 13 mg/dL (9-23); Calcium 7.9 mg/dL (8.3-10.6); Carbon Dioxide 29.5 mMol/L (20.0-31.0); Cardiac Risk Estimate 8.1 RATIO (4.0-6.7); Chloride 102 mMol/L (98-107); Cholesterol 105 mg/dL (132-200); Creatinine (Component) 1.2 mg/dL (0.6-1.3); Estimated Creatinine Clearance 82.2 mL/min (>60); Glucose 94 mg/dL (74-106); HDL Cholesterol 13 mg/dL (40-60); LDL Cholesterol,Calculated 51 mg/dL (0-130); Magnesium 2.1 mg/dL (1.6-2.6); Osmolality,Calculated 279 (275-295); Phosphorous 2.7 mg/dL (2.4-5.1); Potassium 4.1 mMol/L (3.4-5.1); Sodium 140 mMol/L (136-145); Triglycerides 205 mg/dL (30-150); eGFR > 60 See Note
[2025-06-20] MEDS: ESCITALOPRAM OXALATE 10 MG TABLET PO (08:48)
[2025-06-20] MEDS: FINASTERIDE 5 MG TABLET PO (08:48)
[2025-06-20] MEDS: HEPARIN SOD INJ 5000 UNIT/ML VIAL SC ×2 (08:48→20:24)
[2025-06-20] MEDS: TAMSULOSIN HCL 0.4 MG CAPSULE PO (08:49)
[2025-06-20] MEDS: PANTOPRAZOLE 40 MG TABLET PO (08:49)
--- NOTE | 2025-06-20 14:10 | ESPR_ITS ---
<Statement entered by Regis Huddleston MD - 06/27/25 08:19> I reviewed above note and agree with findings and plans. I have also personally examined the patient with medicine team and went over assessment and plan with medical team including hospital internship and resident physician. <Statement entered by Wyatt Mcginnis MD - 06/20/25 18:38> I have personally seen and examined the patient. I agree with the medical student's assessment and plan as documented below. Wyatt Mcginnis DO PGY-2 Internal Medicine - GME Documentation for date of: 06/20/25 Subjective Subjective Interval history: No acute events overnight. Patient is feeling well today and denies fever, chills, nausea, vomiting, dysuria, flank pain, altered mental status and lethargy. Patient is producing good urine output. Exam Vital Signs Temp Pulse Resp BP Pulse Ox O2 Del Method O2 Flow Rate 97.4 F 89 18 127/75 95 Room Air 2 06/20/25 12:00 06/20/25 12:00 06/20/25 12:00 06/20/25 12:00 06/20/25 12:00 06/20/25 12:00 06/18/25 23:09 FiO2 30 06/20/25 03:03 Narrative Exam General: Patient alert, oriented, in no acute distress. HEENT: Normocephalic, atraumatic. PERRLA, EOMI. Cardiac: Regular rate and rhythm, normal S1/S2, no murmurs, rubs, or gallops. Lungs: Normal effort, clear to auscultation bilaterally, no wheezes, rales, or rhonchi. Abdomen: Soft, non-tender, non-distended. Normoactive bowel sounds. Extremities: Warm, well-perfused, no clubbing, cyanosis, or edema. Skin: Warm, dry, intact. No rashes, lesions, or ecchymoses. Neuro: Alert and oriented ?3. Speech fluent. Cranial nerves II?XII grossly intact. Objective Labs 06/20/25 04:36 06/20/25 04:36 Labs: Laboratory Results - last 24 hr 06/20/25 04:36 WBC 18.4 H D RBC 3.63 L Hgb 10.1 L Hct 32.1 L MCV 88 MCH 27.8 MCHC 31.5 RDW Std Deviation 46.8 H Plt Count 435 D Neut % (Auto) 81 H Lymph % (Auto) 8 L [place] % (Auto) 9 Eos % (Auto) 2 Baso % (Auto) 1 Neut # (Auto) 14.8 H Lymph # (Auto) 1.5 [place] # (Auto) 1.7 H Eos # (Auto) 0.3 Baso # (Auto) 0.1 Immature Gran # (Auto) 0.06 H Absolute Nucleated RBC 0.00 Immature Gran % 0 Nucleated RBC % 0 Sodium 140 Potassium 4.1 D Chloride 102 Carbon Dioxide 29.5 Anion Gap 9 BUN 13 Creatinine 1.2 Estim Creat Clear Calc 82.2 eGFR > 60 BUN/Creatinine Ratio 11 L Glucose 94 Calculated Osmolality 279 Calcium 7.9 L Phosphorus 2.7 Magnesium 2.1 Triglycerides 205 H Cholesterol 105 L LDL Cholesterol, Calc 51 HDL Cholesterol 13 L Cholesterol/HDL Ratio 8.1 H Quality Measures Quality Measures none Advance care planning discussed with:: patient and spouse Assessment & Plan Assessment Current Active Medications: Generic Name Dose Route Start Last Admin Trade Name Freq PRN Reason Stop Dose Admin Escitalopram Oxalate 10 mg 06/19/25 09:00 06/20/25 08:48 Escitalopram Oxalate 10 Mg Tablet PO 07/19/25 08:59 10 mg QDAY GERMAN Administration Finasteride 5 mg 06/19/25 09:00 06/20/25 08:48 Finasteride 5 Mg Tablet PO 07/19/25 08:59 5 mg QDAY GERMAN Administration Heparin Sodium (Porcine) 5,000 unit 06/19/25 09:00 06/20/25 08:48 Heparin Sod Inj 5000 Unit/Ml Vial SC 07/03/25 08:59 5,000 unit BID GERMAN Administration Piperacillin/Tazobactam/Dextrose 3.375 gm in 50 mls @ 12.5 mls/hr 06/19/25 06:00 06/20/25 13:29 Zosyn IV 06/26/25 05:59 12.5 mls/hr Q8HR GERMAN Administration Protocol Morphine Sulfate 2 mg 06/19/25 16:42 Morphine Sulf Inj 4 Mg/Ml Vial IVP Q6H PRN BREAKTHROUGH PAIN (SEVERE) Olanzapine 5 mg 06/19/25 21:00 06/19/25 20:30 Olanzapine 5 Mg Tablet PO 07/19/25 20:59 5 mg HS GERMAN Administration Ondansetron HCl 4 mg 06/18/25 23:48 Ondansetron Odt 4 Mg Tabrap PO 07/18/25 23:47 Q8H PRN nausea and vomiting Protocol Pantoprazole Sodium 40 mg 06/19/25 09:00 06/20/25 08:49 Pantoprazole 40 Mg Tablet PO 07/19/25 08:59 40 mg QDAY GERMAN Administration Tamsulosin HCl 0.4 mg 06/19/25 09:00 06/20/25 08:49 Tamsulosin Hcl 0.4 Mg Capsule PO 07/19/25 08:59 0.4 mg QDAY GERMAN Administration Plan 65 yo male PMHx of HFpEF (EF 50-55%), chronic back pain with subcutaneous morphine infusion point, depression/anxiety, GERD, sleep apnea on BIPAP, HLD and BPH presented with fever admitted for the evaluation and management of UTI. #Sepsis 2/2 Catheter associated UTI (presented on admission), resolving #Complicated Lower UTI Patient has resolving infection on broad spectrum antibiotics with WBC count from 32.1 now down to 18.4. Likely etiology of sepsis is catheter associated UTI due to symptoms developing within 48 hours of removing the catheter and introduction of foreign body causing infection. Patient is recovering well and will await urine cultures for further fine tuning of antibiotic regimen. Blood cultures showed no growth in the last 24 hours. Plan - Continue Zosyn 3.75 mg - Pending urine culture results for modification of antibacterial treatment - Follow-up CBC #DIXON, resolved His DIXON is likely in setting of prostamegaly and BPH. It is currently resolved with Cr 1.2, BUN 13, eGFR >60. Plan - Avoid nephrotoxins - Monitor renal panel - Renally dosed medications #Benign Prostatic Hyperplasia #Moderate Prostamegaly on CT Plan - Continue home tamsulosin 0.4 mg po daily - Continue home finasteride 5 mg p.o. daily #Normocytic normochromic anemia #Thrombocytosis Hemoglobin 11.8, hematocrit 35.9. Patient is stable and not actively bleeding. Denies hematemesis, hematuria, melena and hematochezia. Platelet 558 -> 530 -> 435, likely transient response to infection. Plan - Continue to monitor #Essential hypertension Home Medication losartan 25 mg daily Plan - Hold losartan at this time due to stable BP #Major depressive disorder #Anxiety Plan - Continue home Lexapro from 10 mg - Continue Zyprexa 5 mg #Obstructive sleep apnea History of ANA on BiPAP at home Plan - Resume BiPAP/CPAP at night #Hyperlipidemia Home medication rosuvastatin 20 mg. Lipid panel Tri 205, Chol 105, LDL 51, HDL 13. Plan - Continue Rosuvastatin for cardiovascular prevention - Optimize BP control and lifestyle measures #GERD Patient has symptoms of reflux and take pantoprazole 40mg Plan - Continue home pantoprazole 40 mg p.o. daily Hospital management: Lines: peripheral IV Diet: Diabetic Bowel: Senna GI prophylaxis: pantoprazole DVT prophylaxis: SCDs Disposition: Med/tele further management evaluation fever in setting of SIRS CODE STATUS: Full code Patient seen and assessed under supervision of attending physician Dr. Huddleston. Magno VASQUEZ, Internal Medicine
[2025-06-21] VITALS: BP 169/90; PULSE 105; PULSE 85; RESP 19; TEMP 36.8; O2SAT 94
[2025-06-21 04:00] VITALS: BP 160/93; PULSE 86; PULSE 98; RESP 20; TEMP 37.2; O2SAT 92
[2025-06-21] MEDS: PIPER/TAZO 3.375 GM PREMIX 3.375 GM/50 ML BAG IV (05:13)
[2025-06-21 05:52] LABS: Basophils # (Auto) 0.1 Thou/mm3 (0.0-0.2); Basophils % (Auto) 1 % (0-2.5); Eosinophils # (Auto) 0.4 Thou/mm3 (0.0-0.5); Eosinophils % (Auto) 3 % (0-10); Hematocrit 36.6 % (41.0-53.0); Hemoglobin 11.5 g/dL (13.5-16.0); Immature Granulocytes Auto 0.05 Thou/mm3 (0.00-0.00); Lymphocytes # (Auto) 1.3 Thou/mm3 (1.0-4.8); Lymphocytes % (Auto) 13 % (10-50); Mean Corpuscular HGB Conc 31.4 g/dl (31.0-37.0); Mean Corpuscular Hemoglobin 27.2 pg (25.0-35.0); Mean Corpuscular Volume 87 fL (80-100); Monocytes # (Auto) 0.9 Thou/mm3 (0.0-0.8); Monocytes % (Auto) 9 % (0-12); Neutrophils # (Auto) 7.6 Thou/mm3 (1.8-7.7); Neutrophils % (Auto) 74 % (37-80); Nucleated Red Blood Cell # 0.00 Thou/mm3 (0.00-0.00); Nucleated Red Blood Cell % 0 /100 WBC (0); Platelet Count 404 Thou/mm3 (140-440); RDW Standard Deviation 45.3 fL (35.1-43.9); Red Blood Count 4.23 Miln/mm3 (4.50-5.90); White Blood Count 10.4 Thou/mm3 (3.8-10.6)
[2025-06-21 06:08] LABS: Anion Gap 9 (7-16); BUN/Creatinine Ratio 10 Ratio (12-20); Blood Urea Nitrogen 11 mg/dL (9-23); Calcium 8.5 mg/dL (8.3-10.6); Carbon Dioxide 31.2 mMol/L (20.0-31.0); Chloride 102 mMol/L (98-107); Creatinine (Component) 1.1 mg/dL (0.6-1.3); Estimated Creatinine Clearance 89.7 mL/min (>60); Glucose 97 mg/dL (74-106); Magnesium 2.2 mg/dL (1.6-2.6); Osmolality,Calculated 282 (275-295); Phosphorous 3.2 mg/dL (2.4-5.1); Potassium 3.9 mMol/L (3.4-5.1); Sodium 142 mMol/L (136-145); eGFR > 60 See Note
[2025-06-21 08:00] VITALS: BP 165/98; PULSE 96; RESP 18; TEMP 36.5; O2SAT 92
[2025-06-21] MEDS: FINASTERIDE 5 MG TABLET PO (08:10)
[2025-06-21] MEDS: TAMSULOSIN HCL 0.4 MG CAPSULE PO (08:10)
[2025-06-21] MEDS: PANTOPRAZOLE 40 MG TABLET PO (08:10)
[2025-06-21] MEDS: ESCITALOPRAM OXALATE 10 MG TABLET PO (08:10)
[2025-06-21] MEDS: HEPARIN SOD INJ 5000 UNIT/ML VIAL SC (08:10)
[2025-06-21 09:32] VITALS: BP 165/98; PULSE 96
[2025-06-21] MEDS: LOSARTAN POTASSIUM 25 MG TABLET PO (09:32)
[2025-06-21 10:06] VITALS: PULSE 90; RESP 20; RESP 93
[2025-06-21] MEDS: LEVOFLOXACIN 250 MG TABLET 750 MG PO (10:08)
--- NOTE | 2025-06-21 12:13 | ESDS_ITS ---
<Statement entered by Akila Sarah MD - 06/21/25 12:18> I discussed with and supervised the software development intern physician who took care of this patient. I personally saw and examined the patient and discussed the assessment and plan with the entire medicine team, including my attending , I agree with the assessment and plan as documented below Akila Sarah M.D. PGY-3 Disclaimer: Despite multiple revisions, due to the dictation software being used, the document bellow may not be free of grammatical errors including phonetic/typographic errors. However, this does not deter from our commitment to providing health care in the patient's best interest in mind. Planned Discharge Date 06/21/25 DS: Providers Provider Date of admission: 06/19/25 00:14 Primary care physician: Physician Mira Primary/Family Admitting Provider: Tiana Rivers MD Attending Provider on Admission: Mac Griffith DO Attending Provider on DC: Eryn Barber Discharging Provider: Eryn Barber DS: Diagnosis Problem List Completed Was Problem List Reviewed/Reconciled?: Yes Hospital Course Hospital Course Hospital course: A 65 year old male with PMHx of chronic back pain with subcutaneous morphine infusion pump, depression, anxiety, GERD, sleep apnea on BIPAP, HLD, testosterone replacement therapy and BPH was brought to the hospital on 06/18 for fever and admitted for sepsis secondary to catheter-associated UTI. Vitals at the time of admission were significant for fever 100.8, tachycardia 113 and he was saturating 93% on 2L nasal cannula. His labs were significant for markedly elevated WBC count 32.2, decreased hemoglobin hematocrit, hyponatremia, elevated lactic acid 2.6, elevated pro-calcitonin 2.23, elevated creatinine 1.5. The UA showed turbid clarity, leukocyte esterase positive, 2+ protein, 2+ blood, RBC 27, WBC 166. Imaging included chest x-ray no pneumonia, head CT negative for acute hemorrhage. Abdominal/pelvis x-ray showed severe cystitis pattern with moderate prostatomegaly, 15 mm fat-containing umbilical hernia. The patient received IV fluids and acetaminophen for fever and was started empirically on piperacillin-tazobactam for sepsis and CAUTI. Blood cultures remained negative, while urine cultures grew Pseudomonas aeruginosa susceptible to fluoroquinolones; antibiotics were transitioned to levofloxacin to complete the course. Over the hospital stay, his WBC and creatinine trended down with resolution of fever and improvement in symptoms. His sepsis and DIXON resolved, and he was clinically stable at the time of discharge. Patient is discharged to home with the following medications and recommendations: - Continue taking current medications. - Please take Levofloxacin 750 mg daily for urinary tract infection and continue for next 7 days - Please increase fluid intake during this period. - Return to ED if symptoms worsen. - Follow-up with PCP 1 to 2 weeks after discharge. Admission diagnoses: #Sepsis 2/2 catheter associated UTI (presented on admission), resolved #DIXON, resolved #Benign Prostatic Hyperplasia #Essential Hypertension #Major Depressive Disorder #Anxiety #Obstructive Sleep Apnea #Hyperlipidemia #GERD Patient seen and assessed under supervision of attending physician Dr. Wagner. Magno VASQUEZ, Internal Medicine Status at Discharge Overall status at discharge: patient is back to baseline Time Spent with Patient Time attestation: Total time spent providing and/or coordinating discharge services: 35 min Time spent: Greater than 30 minutes Exam Vital Signs Temp Pulse Resp BP Pulse Ox O2 Del Method O2 Flow Rate 97.7 F 90 20 165/98 H 92 L Room Air 2 06/21/25 08:00 06/21/25 10:06 06/21/25 10:06 06/21/25 09:32 06/21/25 08:00 06/21/25 08:00 06/18/25 23:09 FiO2 30 06/20/25 03:03 Narrative Exam General: Patient alert, oriented, in no acute distress. HEENT: Normocephalic, atraumatic. PERRLA, EOMI. Cardiac: Regular rate and rhythm, normal S1/S2, no murmurs, rubs, or gallops. Lungs: Normal effort, clear to auscultation bilaterally, no wheezes, rales, or rhonchi. Abdomen: Soft, non-tender, non-distended. Normoactive bowel sounds. Extremities: Warm, well-perfused, no clubbing, cyanosis, or edema. Skin: Warm, dry, intact. No rashes, lesions, or ecchymoses. Neuro: Alert and oriented ?3. Speech fluent. Cranial nerves II?XII grossly intact. Discharge Plan Plan Patient Disposition: HOME (Self Care) Patient condition on transfer: Stable Care Plan Goals: Please continue taking current medication as prescribed You started on oral antibiotics levofloxacin 750 mg daily for urinary tract infection. Please complete 7 days course Increase fluid intake during this period. Return to ED anytime symptoms worsens. Follow-up with PCP 1 to 2 weeks after discharge. Prescriptions/Referrals Prescriptions/Med Rec: New levofloxacin 750 mg tablet 750 mg PO QDAY 7 Days Qty: 7 0RF Continued pantoprazole 40 mg tablet,delayed release (DR/EC) 40 mg PO QDAY Patient Comments: TAKE 1 TABLET BY MOUTH EVERY DAY escitalopram oxalate 10 mg tablet 10 mg PO QDAY Patient Comments: TAKE 1 TABLET BY MOUTH EVERY DAY Emgality Pen 120 mg/mL pen injector 120 mg SUBCUT QMONTH Patient Comments: INJECT 1 MG SUBCUTANEOUSLY MONTHLY TO THIGH , OUTER UPPER ARM, BUTTOCKS OR ABDOMINE olanzapine 5 mg tablet 5 mg PO HS Patient Comments: TAKE 1 TABLET BY MOUTH AT NIGHT TIME rosuvastatin 20 mg tablet 20 mg PO QDAY Patient Comments: TAKE 1 TABLET BY MOUTH EVERY DAY alum-mag hydroxide-simeth 400-400-40 mg/5 mL suspension 10 ml PO Q6H PRN (Reason: indigestion) ipratropium bromide 42 mcg (0.06 %) spray,non-aerosol 2 spray INTRANASAL QDAY PRN (Reason: allergy symptoms) Patient Comments: SPRAY 2 SPRAYS INTO EACH NOSTRIL ONCE A DAY ondansetron 4 mg tablet,disintegrating 4 mg PO Q8H PRN (Reason: nausea and vomiting) testosterone cypionate 200 mg/mL oil 200 mg SUBCUT Q14D Patient Comments: INJECT 1 MILLILITER INTRAMUSCULARLY WEEKLY tamsulosin 0.4 mg Capsule 0.4 mg PO QDAY 30 Days Qty: 30 0RF finasteride 5 mg Tablet 5 mg PO QDAY 30 Days Qty: 30 0RF losartan 25 mg tablet 25 mg PO QDAY Qty: 30 2RF morphine (PF) See Rx Instructions .ROUTE .COMPLEX Patient Comments: Pls check copy in chart for dosage. Rx Instructions: Morphine0.782 mg/hr, Bupivacaine 0.261 mg/hr; Morphine- primary, Bupivacaine -secondary- Infusion pump on Right lower abdomen subcutaneous Referrals: No Primary/Family,Physician [Primary Care Provider] Patient/Caregiver Discharge Instructions Discharge Activity: activity as tolerated Education Materials: Catheter-Linked Urinary Tract ... Print Language: [place] Stand Alone Forms: [facility] Award Info., Patient Portal Info Letter Discharge Order Discharge Orders: Discharge (Routine); Ordered 06/21/25 Ordered By: Estevan Wagner Quality Discharge Quality Measures VTE prophylaxis Attestestation MD Attestation I attest that I was physically present for the evaluation, physical examination, lab and imaging review of the patient with the residents. I discussed the case with the residents and agree with the findings and plans of care as documented above. Estevan Wagner MD
== END 2025-06-21 11:17 | disposition home or self-care (01) | DRG 698 ==
LOC: SERX 21:49 → S3SX 06-19 06:21 → SERHOLD 06-20 05:40
PROVIDERS: Admitting Provider Student in an Organized Health Care Education/Training Program; Visit Provider Student in an Organized Health Care Education/Training Program
DX: T83.518A Infection and inflammatory reaction due to other urinary catheter, initial encounter (principal); A41.52 Sepsis due to Pseudomonas; R65.20 Severe sepsis without septic shock; N17.9 Acute kidney failure, unspecified; E87.1 Hypo-osmolality and hyponatremia; E87.20 Acidosis, unspecified; N40.0 Benign prostatic hyperplasia without lower urinary tract symptoms; K21.9 Gastro-esophageal reflux disease without esophagitis; E78.5 Hyperlipidemia, unspecified; G89.29 Other chronic pain; M54.9 Dorsalgia, unspecified; F32.A Depression, unspecified; F41.9 Anxiety disorder, unspecified; Y84.6 Urinary catheterization as the cause of abnormal reaction of the patient, or of later complication, without mention of misadventure at the time of the procedure; N30.90 Cystitis, unspecified without hematuria; D75.839 Thrombocytosis, unspecified; G47.33 Obstructive sleep apnea (adult) (pediatric); I10 Essential (primary) hypertension; D75.838 Other thrombocytosis; D64.89 Other specified anemias; K42.9 Umbilical hernia without obstruction or gangrene; Z79.899 Other long term (current) drug therapy
CPT/HCPCS: 36415; 70450; 71045; 74176; 80048; 80053; 80061; 80307; 81001; 83540; 83550; 83605; 83735; 83880; 84100; 84145; 85025; 85379; 85610; 85730; 87040; 87077; 87081; 87086; 87186; 87811; 93005; 93225; 94660; 96361; 96365; 96366; 99285; J1644; J2543; J7030; J7120; A9270